=== PATIENT | male | born 1950 | race Caucasian/White ===

== ENCOUNTER → 2017-07-23 15:15 | Outpatient (CLI) | payer MEDICARE, OTHER, SELFPAY | PROVIDERS: Visit Provider Urology | DX: E29.1 Testicular hypofunction (principal); R97.20 Elevated prostate specific antigen [PSA] | CPT/HCPCS: 36415; 84153; 84403 ==

== ENCOUNTER → 2017-11-03 13:22 | Outpatient (CLI) | payer MEDICARE, OTHER, SELFPAY ==
[2017-11-03 14:04] LABS: Hematocrit 53.4 % (41-53)
== END ==
PROVIDERS: Visit Provider Urology
DX: R97.20 Elevated prostate specific antigen [PSA] (principal); E29.1 Testicular hypofunction
CPT/HCPCS: 36415; 84153; 84403; 85014

== ENCOUNTER → 2018-02-07 11:17 | Outpatient (CLI) | payer MEDICARE, OTHER, SELFPAY | PROVIDERS: Visit Provider Urology | DX: N40.0 Benign prostatic hyperplasia without lower urinary tract symptoms (principal); E29.1 Testicular hypofunction | CPT/HCPCS: 36415; 84153; 84403 ==

== ENCOUNTER 2018-02-27 06:45 | Day surgery (SDC) | payer MEDICARE, OTHER, SELFPAY ==
[2018-02-18 17:07] VITALS: BMI 25.9
[2018-02-27 07:06] VITALS: BMI 27.3
[2018-02-27 07:19] VITALS: BP 134/76; PULSE 83; RESP 15; TEMP 36.3; O2SAT 94
[2018-02-27] MEDS: LACTATED RINGERS 1,000 ML 42 ML IV (07:20)
--- NOTE | 2018-02-27 07:43 | PM.PREOP ---
Pre-operative Note Interval Note History & Physical reviewed/Exam performed by Physician: Yes Changes to H&P: No
--- NOTE | 2018-02-27 07:47 | P.OP_ITS ---
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 Conservative measures failed to alleviate his pain and wished to have reduction of the prominence at this time. Surgeon: Alba Ramires Click Yes if Unassisted: Yes Operative Notes Procedure in detail: The patient was brought to the operating and placed on the table in supine position after induction of general anesthesia the foot was prepped and draped the usual aseptic manner. After check of anesthesia the, an incision was made over the plantar aspect of the 4th proximal interphalangeal joint. The incision was deepened through subcutaneous tissues being careful to identify and retract all vital neurovascular structures. All bleeders and cauterized and ligated as necessary. Immediately noted was a tophus in the location of the nodule; it was firm, discrete, and white with chalkiness. There was some extension distally into the DIPJ. The flexor tendon appeared under this and was clean and clear, excepting with some tophus involvement at the more distal aspect at the DIPJ. Loading the foot/toe, the intermediate phalanx did not appear especially dropped plantarly. The area was irrigated with copious amounts of normal sterile saline. No necrotic tissue or abscesses were noted. Vessels were cauterized and ligated as necessary.4-0 Vicryl was used to repair a portion of the flexor distally and also used minorly subcutaneously for closure and 4-0 nylon for the skin. The area was dressed with a sterile lightly compressive dressing. Complications: none Condition: stable Disposition: PACU Plan for aftercare: Following a period of postoperative monitoring, the patient be discharged home on written and oral postoperative instructions including keeping the dressing dry and intact, avoiding significant ambulation on the foot , elevating the foot when seated home. DVT prevention techniques have been reviewed. For the 1st postoperative visit the dressing will be changed and possible suture removal.
--- NOTE | 2018-02-27 08:12 | SUR.OPER ---
Supine on padded OR bed, head on pillow, arms secured on padded arm boards at <90 degrees abduction, legs uncrossed, safety belt at thigh, tape over blanket over non operative lower leg, operative leg draped free.
[2018-02-27] MEDS: CEFAZOLIN 1 GM VIAL IV (08:22)
[2018-02-27] MEDS: BUPIVACAINE 0.5% (PF) VIAL 3 ML INJ (08:24)
[2018-02-27 08:46] VITALS: BP 105/33; PULSE 58; RESP 15; TEMP 36.9; O2SAT 96
[2018-02-27 08:51] VITALS: BP 112/54; PULSE 60; RESP 16; O2SAT 95
[2018-02-27 08:56] VITALS: BP 117/66; PULSE 58; RESP 16; O2SAT 95
[2018-02-27 09:18] VITALS: BP 126/70; PULSE 55; RESP 16; TEMP 36.2; O2SAT 99
--- NOTE | 2018-02-27 09:30 | SUR.PHASEII ---
ready for discharge waiting for ride.
[2018-02-27 10:23] VITALS: BP 121/66; PULSE 60; RESP 14; TEMP 36.6; O2SAT 100
--- NOTE | 2018-02-27 10:26 | SUR.PHASEII ---
Benedicto constantino, pt left in stable condition, d/c instructions completed by Mynor Roberts RN.
== END 2018-02-27 10:22 | disposition home or self-care (01) ==
PROVIDERS: Visit Provider Podiatrist
PROC: (CPT 26535; principal; 2018-02-27 07:45)
DX: M1A.9XX1 Chronic gout, unspecified, with tophus (tophi) (principal); E78.00 Pure hypercholesterolemia, unspecified
CPT/HCPCS: 28108; J0690; J1100; J2250; J2405; J2704; J3010

== ENCOUNTER 2018-04-09 14:36 | Emergency (ER) | payer MEDICARE, OTHER, SELFPAY ==
[2018-04-09 14:42] VITALS: BP 154/87; PULSE 73; RESP 15; TEMP 36.4; O2SAT 100; BMI 27.0
--- NOTE | 2018-04-09 14:51 | ED_ITS ---
HPI - Male Genitourinary <Margarita Angeles PA-C - Last Filed: 04/09/18 15:45> General Chief complaint: Urogenital-Male Stated complaint: urinary retention post op Time Seen by Provider: 04/09/18 14:46 Source: patient Mode of arrival: ambulatory Limitations: no limitations History of Present Illness HPI Narrative: This 67-year-old male comes to ED secondary to urinary retention. He states that he had a laser ablation of his prostate for BPH on 03/24. Initial catheter was placed then and removed 03/31, however he was unable to urinate so this was replaced. He talked with his interventional radiologist who did the procedure (in [place]), and was advised he could try removing the catheter this morning at home, however since then he was only able to produce a trickle of urine and feels like he is retaining urine again. He has been in touch with his physician in [place] who advised him to come to ED and get the catheter replaced. He does have a urologist in [place] but has not seen him at all regarding this procedure. He denies any other new symptoms today such as fever, nausea, vomiting, or abdominal pain. Related Data Home Medications Medication Instructions Recorded Confirmed oxycodone-acetaminophen [Percocet] 1 tab PO Q6H PRN 02/18/18 04/09/18 alfuzosin 10 mg PO BEDTIME 04/09/18 04/09/18 anastrozole 0.5 mg PO 4XW 04/09/18 04/09/18 hyoscyamine sulfate 0.125 mg SUBLINGUAL Q4H PRN 04/09/18 04/09/18 hypochlorous acid-sodium chlor 04/09/18 [Avenova] Allergies Allergy/AdvReac Type Severity Reaction Status Date / Time prednisolone [PREDNISOLONE] AdvReac Unknown Glaucoma Verified 04/09/18 14:42 Review of Systems <Margarita Angeles PA-C - Last Filed: 04/09/18 15:45> Review of Systems ROS Unobtainable: All systems reviewed & are unremarkable except as noted in HPI and below PFSH <Margarita Angeles PA-C - Last Filed: 04/09/18 15:45> Medical History Gout (Chronic) Hyperlipidemia (Chronic) Vascular insufficiency of extremity (Chronic) Surgical History History of toe surgery (Resolved 03/12/17) History of vascular surgery (Resolved) Social History Smoking Status: Never smoker Social History Smoking Status: Never smoker Comment: + ETOH Exam <Margarita Angeles PA-C - Last Filed: 04/09/18 15:45> Narrative Exam Narrative: GENERAL APPEARANCE: Patient sitting comfortably, in no distress. LUNGS: Clear to auscultation bilaterally. HEART: Rate and rhythm regular without murmur, normal S1 and S2, no S3 or S4. ABDOMEN: Soft, NT, ND, +BS x 4 quadrants EXTREMITIES: No edema Initial Vital Signs Initial Vital Signs: Vital Signs Temperature 97.6 F 04/09/18 14:42 Pulse Rate 73 04/09/18 14:42 Respiratory Rate 15 04/09/18 14:42 Blood Pressure 154/87 H 04/09/18 14:42 Pulse Oximetry 100 04/09/18 14:42 <Sri Santana DO - Last Filed: 04/10/18 08:36> Initial Vital Signs Initial Vital Signs: Vital Signs Temperature 97.6 F 04/09/18 14:42 Pulse Rate 73 04/09/18 14:42 Respiratory Rate 15 04/09/18 14:42 Blood Pressure 154/87 H 04/09/18 14:42 Pulse Oximetry 100 04/09/18 14:42 Course <Margarita Angeles PA-C - Last Filed: 04/09/18 15:45> Additional Information: Catheter replaced and quickly drained 400+cc. Patient is feeling well without other new c/o. He has PCP follow-up scheduled next week and will also be in touch with his IR specialist to determine whether further local/urology f/u needed. Orders Ordered: Discontinued Medications Sodium Chloride (Normal Saline 0.9%) 1,000 mls @ 1,000 mls/hr IV BOLUS ONE Stop: 04/09/18 15:53 Vital Signs - 8 hr 04/09/18 14:42 Temperature 97.6 F Pulse Rate 73 Respiratory Rate 15 Blood Pressure 154/87 H Pulse Oximetry 100 <Sri Santana DO - Last Filed: 04/10/18 08:36> Orders Ordered: Discontinued Medications Sodium Chloride (Normal Saline 0.9%) 1,000 mls @ 1,000 mls/hr IV BOLUS ONE Stop: 04/09/18 15:53 Vital Signs - 8 hr 04/09/18 14:42 Temperature 97.6 F Pulse Rate 73 Respiratory Rate 15 Blood Pressure 154/87 H Pulse Oximetry 100 Discharge Plan Departure Patient Disposition: Home Clinical Impression: Postprocedural urinary retention Discharge Date/Time: 04/09/18 16:04 Interventions: ED Discharge Assessment Last Done: 04/09/18 16:04 Instructions: How to Care for Your Srivastava Catheter -- Male, DI for Urinary Retention in Men Activity Restrictions/Additional Instructions: Please return if having problems with your catheter or new symptoms such as fever, vomiting, or urinary pain. Otherwise, please follow-up with your new PCP as you have planned next week and you can determine from there whether you need to see another local specialist such as Urology. Your interventional radiologist may just want you to do another trial of catheter removal in a week or so as your postoperative inflammation improves. Prescriptions: No Action oxycodone-acetaminophen [Percocet] 5-325 mg Tablet 1 tab PO Q6H PRN (Reason: Pain) RF: 0 anastrozole 1 mg tablet 0.5 mg PO 4XW RF: 0 hyoscyamine sulfate 0.125 mg tablet, sublingual 0.125 mg Sublingual Q4H PRN (Reason: Spasms) RF: 0 alfuzosin 10 mg tablet extended release 24 hr 10 mg PO BEDTIME RF: 0 Avenova 0.01 % spray,non-aerosol RF: 0 Referrals: Delores Ham [Other] Todd Duffy MD [Primary Care Provider] - Deniz Shah MD [Non-Staff] - <Sri Santana DO - Last Filed: 04/10/18 08:36> Cosign ED Attending Cosignature Attestation: I was immediately available in the department for consultation. Documentation has been reviewed. I agree with assessment and plan.
--- NOTE | 2018-04-09 15:00 | PC.NURSE ---
s\p focus laser ablation prostates, (bph), done in [facility], patiño inserted Mar , dc ,but reinserted the same day, patiño dc this morning at 7am, though he was ready, trickle urine since 7am, now feels like urine 400ml. denies fever,vomiting, denies coag, now with bladder preassure 5/10 at this time bladder scan on arrival 466ml.
[2018-04-09 15:53] VITALS: BP 142/68; PULSE 61; RESP 16; O2SAT 98
--- NOTE | 2018-04-09 16:03 | PC.NURSE ---
patiño education given to pt, converting to leg bag-large bag. pt familiar with the procedure already,
== END 2018-04-09 16:04 | disposition home or self-care (01) ==
PROVIDERS: Emergency Provider Internal Medicine; PCP Internal Medicine
DX: N99.89 Other postprocedural complications and disorders of genitourinary system (principal); R33.8 Other retention of urine
CPT/HCPCS: 51701; 99283

== ENCOUNTER → 2018-05-13 14:39 | Outpatient (CLI) | payer MEDICARE, OTHER, SELFPAY ==
[2018-05-13 16:31] LABS: Prostate Specific Antigen 2.99 ng/mL (0.10-4.00)
== END ==
PROVIDERS: PCP Internal Medicine; Visit Provider Urology
DX: E29.1 Testicular hypofunction (principal); N40.0 Benign prostatic hyperplasia without lower urinary tract symptoms
CPT/HCPCS: 36415; 84153; 84403

== ENCOUNTER → 2018-05-30 12:03 | Outpatient (CLI) | payer MEDICARE, OTHER, SELFPAY ==
[2018-05-30 14:09] LABS: Alanine Aminotransferase 27 IU/L (21-72); Albumin 4.4 g/dL (3.5-5.0); Albumin Globulin Ratio 1.6 (1.0-2.8); Alkaline Phosphatase 54 U/L (38-126); Aspartate Aminotransferase 27 IU/L (17-59); Bilirubin Total 0.5 mg/dL (0.2-1.3); Bilirubin Unconjugated 0.5 mg/dL (0.0-1.1); Globulin 2.8 g/dL (1.7-4.1); HEMOLYSIS < 15 (0-50); Total Protein 7.2 g/dL (6.3-8.2); Uric Acid 9.1 mg/dL (3.5-8.5)
== END ==
PROVIDERS: PCP Internal Medicine; Visit Provider Internal Medicine
DX: M10.9 Gout, unspecified (principal); Z79.899 Other long term (current) drug therapy
CPT/HCPCS: 36415; 80076; 84550

== ENCOUNTER → 2018-08-20 12:57 | Outpatient (CLI) | payer MEDICARE, OTHER, SELFPAY ==
[2018-08-20 14:28] LABS: Prostate Specific Antigen 2.44 ng/mL (0.10-4.00)
== END ==
PROVIDERS: Visit Provider Urology
DX: R97.20 Elevated prostate specific antigen [PSA] (principal); E29.1 Testicular hypofunction
CPT/HCPCS: 36415; 84153; 84403

== ENCOUNTER → 2018-09-03 12:12 | Outpatient (CLI) | payer MEDICARE, OTHER, SELFPAY ==
[2018-09-03 12:56] LABS: Hematocrit 48.1 % (41-53)
[2018-09-03 13:06] LABS: Uric Acid 7.5 mg/dL (3.5-8.5)
== END ==
PROVIDERS: Visit Provider Urology
DX: D75.1 Secondary polycythemia (principal); N21.0 Calculus in bladder
CPT/HCPCS: 36415; 84550; 85014

== ENCOUNTER → 2018-11-25 11:34 | Outpatient (CLI) | payer MEDICARE, OTHER, SELFPAY ==
[2018-11-25 12:28] LABS: Hematocrit 51.5 % (41-53)
[2018-11-26 15:08] LABS: Prostate Specific Antigen 5.36 ng/mL (0.10-4.00)
== END ==
PROVIDERS: Visit Provider Urology
DX: E29.1 Testicular hypofunction (principal); R97.20 Elevated prostate specific antigen [PSA]
CPT/HCPCS: 36415; 84153; 84403; 85014

== ENCOUNTER → 2019-01-14 12:45 | Outpatient (CLI) | payer MEDICARE, OTHER, SELFPAY ==
--- NOTE | 2019-01-14 | DI.US.S_ITS ---
PROCEDURE: US RENAL COMPLETE INDICATIONS: CALCULUS IN BLADDER TECHNIQUE: Real-time scanning was performed of the kidneys and bladder, with image documentation. COMPARISON: None. FINDINGS: Kidneys: Kidneys are normal in size. Right kidney measures 10.8 cm long; left kidney measures 12.3 cm long. Right renal cortical thickness is 1.3 cm; left renal cortical thickness is 1.4 cm. Renal cortical echotexture is normal. No hydronephrosis. A 2.5 x 1.7 x 1.3 cm cyst with thin internal septations is present within the midpole of the right kidney. A 6 mm cortical cyst is also present within the midpole of the right kidney. There is a 2.0 cm left pararenal cyst and 2 adjacent cortical cysts within the midpole of the left kidney which measure 3.0 x 2.3 x 1.8 cm. Bladder: Pre-void bladder volume is 530 mL. Post-void residual is 103 mL. Pre-void images demonstrate no intraluminal masses or stones. On pre-void images, bilateral ureteral jets are noted with color Doppler interrogation. (Of note, ureteral jets may not be detectable in up to 25% of cases due to insufficient differences in specific gravity between ureteral and bladder urine). A 10 mm diameter calculus is likely present within the dependent bladder. Miscellaneous: No free pelvic fluid. IMPRESSION: 1. No hydronephrosis or nephrolithiasis. Bilateral renal cysts as above. 2. Probable bladder calculus. 3. Moderate postvoid residual. Dictated by: April Salinas M.D. on 01/14/2019 at 15:06 Approved by: April Salinas M.D. on 01/14/2019 at 15:08
== END ==
PROVIDERS: Family Provider Internal Medicine; PCP Internal Medicine; Visit Provider Urology
DX: N21.0 Calculus in bladder (principal); N28.1 Cyst of kidney, acquired
CPT/HCPCS: 76770

== ENCOUNTER → 2019-02-19 16:30 | Outpatient (CLI) | payer MEDICARE, OTHER, SELFPAY | PROVIDERS: Family Provider Internal Medicine; PCP Internal Medicine; Visit Provider Urology | DX: I25.10 Atherosclerotic heart disease of native coronary artery without angina pectoris (principal) | CPT/HCPCS: 93005 ==

== ENCOUNTER → 2019-03-02 10:59 | Outpatient (CLI) | payer MEDICARE, OTHER, SELFPAY ==
[2019-03-02 11:57] LABS: Hematocrit 45.7 % (41-53)
== END ==
PROVIDERS: Family Provider Internal Medicine; PCP Internal Medicine; Visit Provider Urology
DX: E29.1 Testicular hypofunction (principal)
CPT/HCPCS: 36415; 84403; 85014

== ENCOUNTER → 2019-03-17 15:25 | Outpatient (CLI) | payer MEDICARE, OTHER, SELFPAY ==
[2019-03-17 15:47] LABS: Bacteria Urine None Seen
[2019-03-17 16:05] LABS: Appearance Urine UA CLEAR; Bilirubin Urine UA NEGATIVE (NEGATIVE); Color Urine UA YELLOW; Glucose Urine UA NEGATIVE (Negative); Ketones Urine UA NEGATIVE (NEGATIVE); Leukocyte Esterase Urine UA NEGATIVE (NEGATIVE); Nitrite Urine UA NEGATIVE (Negative); Occult Blood Urine UA TRACE-LYSED (Negative); Protein Urine UA NEGATIVE (Negative); Urobilinogen Urine UA 0.2 E.U./dL (0.2); pH Urine UA 6.5 (4.5-8.0)
[2019-03-17 16:19] LABS: Culture Indicated Urine Cult Not Indicated; RBC Urine 0-1/HPF (0-5/HPF); WBC Urine 0-1/HPF (0-5/HPF)
== END ==
PROVIDERS: Family Provider Internal Medicine; PCP Internal Medicine; Referring Provider Urology; Visit Provider Urology
DX: R30.0 Dysuria (principal)
CPT/HCPCS: 81001

== ENCOUNTER → 2019-07-27 14:29 | Outpatient (CLI) | payer MEDICARE, OTHER, SELFPAY ==
[2019-07-27 15:30] LABS: Cholesterol 229 mg/dL (140-199); HDL Cholesterol 46 mg/dL (40-60); LDL Cholesterol Calculated 150 mg/dL (<100); Triglycerides 166 mg/dL (35-150); Uric Acid 8.2 mg/dL (3.5-8.5)
== END ==
PROVIDERS: Family Provider Internal Medicine; PCP Internal Medicine; Referring Provider Internal Medicine; Visit Provider Internal Medicine
DX: E78.5 Hyperlipidemia, unspecified (principal); M10.9 Gout, unspecified
CPT/HCPCS: 36415; 80061; 84550

== ENCOUNTER → 2019-07-29 09:13 | Outpatient (CLI) | payer MEDICARE, OTHER, SELFPAY ==
[2019-07-29 10:35] LABS: Hematocrit 40.9 % (41-53); Hemoglobin 14.2 g/dL (13.5-17.5)
[2019-07-29 11:00] LABS: Alanine Aminotransferase 25 IU/L (<50); Albumin 4.4 g/dL (3.5-5.0); Albumin Globulin Ratio 1.7 (1.0-2.8); Alkaline Phosphatase 55 U/L (38-126); Aspartate Aminotransferase 35 IU/L (17-59); BUN Creatinine Ratio 21.4 (6-22); Bilirubin Total 0.4 mg/dL (0.2-1.3); Blood Urea Nitrogen 31 mg/dL (9-20); Calcium 9.4 mg/dL (8.4-10.2); Carbon Dioxide 27 mmol/L (22-32); Chloride 103 mmol/L (98-107); Estimated Glomerular Filt Rate 48.1 mL/min (>60); Globulin 2.6 g/dL (1.7-4.1); Glucose 88 mg/dL (80-110); HEMOLYSIS < 15 (0-50); Potassium 4.5 mmol/L (3.4-5.1); Sodium 139 mmol/L (137-145)
[2019-07-29 11:29] LABS: Testosterone 420 ng/dL (71.8-623)
[2019-07-30 07:09] LABS: PSA Free % 17.3 % (.); PSA, Total 2.2 ng/mL (0.0-4.0)
== END ==
PROVIDERS: Family Provider Internal Medicine; PCP Internal Medicine; Referring Provider Urology; Visit Provider Urology
DX: E29.1 Testicular hypofunction (principal)
CPT/HCPCS: 36415; 80053; 84153; 84154; 84403; 85014; 85018

== ENCOUNTER → 2019-08-03 09:18 | Outpatient (CLI) | payer MEDICARE, OTHER, SELFPAY ==
--- NOTE | 2019-08-03 | DI.US.S_ITS ---
PROCEDURE: US RENAL COMPLETE INDICATIONS: ELEVATED KIDNEY FUNCTION TECHNIQUE: Real-time scanning was performed of the kidneys and bladder, with image documentation. COMPARISON: [facility], , RENAL COMPLETE, 01/14/2019, 13:22. FINDINGS: Kidneys: Kidneys are normal in size. Right kidney measures 10.0 cm long; left kidney measures 11.1 cm long. Right renal cortical thickness is 1.6 cm; left renal cortical thickness is 1.6 cm. Renal cortical echotexture is normal. No hydronephrosis or nephrolithiasis. No suspicious solid mass lesions. Simple appearing bilateral renal cysts measuring up to 2.2 cm on the right and up to 1.9 cm on the left. Bladder: Pre-void bladder volume is 406 mL. Post-void residual is zero mL. Pre-void images demonstrate no intraluminal masses or stones. On pre-void images, both of the ureteral jets are noted with color Doppler interrogation. (Of note, ureteral jets may not be detectable in up to 25% of cases due to insufficient differences in specific gravity between ureteral and bladder urine). Miscellaneous: No free pelvic fluid. IMPRESSION: Bilateral simple appearing renal cysts. No hydronephrosis Dictated by: Jac Alexis M.D. on 08/03/2019 at 10:37 Approved by: Jac Alexis M.D. on 08/03/2019 at 10:44
== END ==
PROVIDERS: Family Provider Internal Medicine; PCP Internal Medicine; Referring Provider Urology; Visit Provider Urology
DX: R39.9 Unspecified symptoms and signs involving the genitourinary system (principal); N28.1 Cyst of kidney, acquired
CPT/HCPCS: 76770

== ENCOUNTER → 2019-08-24 10:15 | Outpatient (CLI) | payer MEDICARE, OTHER, SELFPAY ==
[2019-08-25 08:11] LABS: COVID19 Sendout Not Detected (Not Detect)
== END ==
PROVIDERS: Family Provider Internal Medicine; PCP Internal Medicine; Visit Provider Physician Assistant
DX: Z01.812 Encounter for preprocedural laboratory examination (principal)
CPT/HCPCS: 87635

== ENCOUNTER 2019-08-27 13:56 | Day surgery (SDC) | payer MEDICARE, OTHER, SELFPAY ==
[2019-08-20 11:53] VITALS: BMI 26.1
[2019-08-27] VITALS (8 sets, daily range): BP systolic 105–155; BP diastolic 51–80; PULSE 48–66; RESP 8–18; TEMP 36.2–36.6; O2SAT 92–100; BMI 26.1
[2019-08-27] MEDS: LACTATED RINGERS 1,000 ML 100 ML IV (14:19)
--- NOTE | 2019-08-27 17:28 | PM.PREOP ---
Pre-operative Note COVID-19 COVID-19 status: Negative Result date/Date tested (Pos, Neg/Pending): 08/27/19 Interval Note History & Physical reviewed/Exam performed by Physician: Yes Changes to H&P: No
--- NOTE | 2019-08-27 17:29 | PM.OP.1 ---
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 Post-op diagnosis: same Procedure & Clinicians Procedure: Right fourth toe distal interphalangeal joint revision arthroplasty, exostectomy intermediate phalanx, soft tissue mass Same procedure as scheduled: Yes Indications: Painful recurrent nodule to the right fourth toe. Surgeon: Alba Ramires Click Yes if Unassisted: Yes Anesthesia Type: General Operative Notes Closure Type: primary Specimen(s): other (1) Crystal analysis gouty tophus joint of right fourth toe 2) Tissue from flexor tendon area of right fourth toe sent for crystal analysis (switched to culture per phone discussion with lab)) Estimated Blood Loss (mL): 10 Blood products transfused: none Procedure in detail: Patient was brought to the operating room and placed on the operating table in the supine position. After induction of general anesthesia the right foot was prepped and draped in the usual aseptic manner. After the tourniquet was inflated and after check of anesthesia to the foot and incision was made on the plantar 4th toe in the area of the proximal and distal interphalangeal joint where the nodule was felt on the more lateral aspect. The incision was deepened through subcutaneous tissues being careful to identify and retract all vital neural and vascular structures. All bleeders were cauterized and ligated as necessary. Heading into the more lateral aspect I was able to note up into the joint space a cluster of crystal component suggestive of gouty tophus. This was mobilized and as much as possible removed and sent for crystal analysis. There was no purulence and no areas of necrosis. There was what looked to be an investment also in the flexor tendon somewhat of some gouty tophus. I was able to just take a little bit of that but the remainder was intact and this was sent for analysis as well. I did note that there was a small component of the intermediate phalanx when I allowed the toe to be straight in the sagittal plane that may be pressing plantarly although it is not nearly the amount of component that I noticed that the more nodule felt from the small cluster of crystals that I saw on the other side. So I decided to rasp down a little of the intermediate phalanx from the plantar aspect so as to allow for less prominence. The area was irrigated with copious amounts of normal sterile saline and it was noted that there was less prominence plantarly from each of these locations. The tourniquet was deflated, prompt hyperemic response was seen to the foot. Closure was performed using 4 0 Vicryl and nylon. He was dressed in a sterile lightly compressive dressing and placed in his postoperative shoe and transferred the PACU with vital signs stable and vascular status intact. Complications: none Post-operative Condition: stable Disposition: PACU Plan for aftercare: Following a period of postoperative monitoring, the patient will be discharged to home on written and oral postoperative instructions including keeping the dressing dry and intact, avoiding significant ambulation to the foot. Elevating the foot when seated home, DVT prevention techniques have been reviewed. We will see him back for analysis of the crystals as well as tissue and once the skin appears to be coapted will remove the plantar sutures.
[2019-08-27] MEDS: CEFAZOLIN 1 GM/50 ML FROZ.PIGGY IV (17:40)
[2019-08-27] MEDS: BUPIVACAINE 0.5% (PF) VIAL 30 ML INJ (18:01)
--- NOTE | 2019-08-27 18:08 | SUR.OPER ---
Supine on padded OR bed, head on pillow, arms secured on padded arm boards at <90 degrees abduction, legs uncrossed, nonoperative lower leg secured with tape to operating table, safety belt at abdomen.
[2019-08-27 18:49] LABS: Crystals Body Fluid - IN-HOUSE Monosodium Urate MSU
--- NOTE | 2019-08-27 18:50 | SUR.PHASEI ---
PAtient A\O x 4. Reports sensation to right foot. Cap refill < 2 seconds to right foot. Denies pain and nausea.
--- NOTE | 2019-08-27 19:49 | SUR.PHASEII ---
Patient denies pain, DC instructions reviewed.
== END 2019-08-27 19:50 | disposition home or self-care (01) ==
PROVIDERS: Family Provider Internal Medicine; PCP Internal Medicine; Referring Provider Podiatrist; Visit Provider Podiatrist
PROC: (CPT 26535; principal; 2019-08-27 15:30)
DX: M10.9 Gout, unspecified (principal); M20.41 Other hammer toe(s) (acquired), right foot; E78.00 Pure hypercholesterolemia, unspecified
CPT/HCPCS: 28124; 87070; 87075; 87205; 89060; J1100; J2250; J2405; J2704; J3010

== ENCOUNTER → 2019-09-28 09:41 | Outpatient (CLI) | payer MEDICARE, OTHER, SELFPAY ==
[2019-09-28 12:01] LABS: BUN Creatinine Ratio 17.9 (6-22); Blood Urea Nitrogen 24 mg/dL (9-20); Calcium 9.2 mg/dL (8.4-10.2); Carbon Dioxide 29 mmol/L (22-32); Chloride 101 mmol/L (98-107); Cholesterol 190 mg/dL (140-199); Estimated Glomerular Filt Rate 52.7 mL/min (>60); Glucose 80 mg/dL (80-110); HDL Cholesterol 38 mg/dL (40-60); HEMOLYSIS < 15 (0-50); LDL Cholesterol Calculated 120 mg/dL (<100); Potassium 4.6 mmol/L (3.4-5.1); Sodium 136 mmol/L (137-145); Triglycerides 162 mg/dL (35-150); Uric Acid 4.8 mg/dL (3.5-8.5)
[2019-09-28 12:17] LABS: Progesterone, Total 0.76 ng/mL
[2019-09-28 12:33] LABS: Estradiol, Total 41.9 pg/mL; Prostate Specific Antigen 4.41 ng/mL (0.10-4.00)
[2019-09-28 12:37] LABS: Ferritin 11 ng/mL (18-464); Testosterone 827 ng/dL (71.8-623)
== END ==
PROVIDERS: Family Provider Internal Medicine; PCP Internal Medicine; Referring Provider Internal Medicine; Visit Provider Internal Medicine
DX: E78.5 Hyperlipidemia, unspecified (principal); M10.9 Gout, unspecified; E29.1 Testicular hypofunction; M85.80 Other specified disorders of bone density and structure, unspecified site; Z12.5 Encounter for screening for malignant neoplasm of prostate; E55.9 Vitamin D deficiency, unspecified; D75.1 Secondary polycythemia; R97.20 Elevated prostate specific antigen [PSA]
CPT/HCPCS: 36415; 80048; 80061; 82670; 82728; 84144; 84153; 84403; 84550; G0103

== ENCOUNTER → 2019-11-05 13:13 | Outpatient (CLI) | payer MEDICARE, OTHER, SELFPAY ==
[2019-11-05 14:11] LABS: BUN Creatinine Ratio 17.2 (6-22); Blood Urea Nitrogen 22 mg/dL (9-20); Calcium 8.9 mg/dL (8.4-10.2); Carbon Dioxide 30 mmol/L (22-32); Chloride 100 mmol/L (98-107); Estimated Glomerular Filt Rate 55.6 mL/min (>60); Glucose 92 mg/dL (80-110); HEMOLYSIS < 15 (0-50); Potassium 4.6 mmol/L (3.4-5.1); Sodium 139 mmol/L (137-145)
== END ==
PROVIDERS: Family Provider Internal Medicine; PCP Internal Medicine; Referring Provider Internal Medicine; Visit Provider Internal Medicine
DX: R94.4 Abnormal results of kidney function studies (principal)
CPT/HCPCS: 36415; 80048

== ENCOUNTER → 2019-12-01 11:22 | Outpatient (CLI) | payer MEDICARE, OTHER, SELFPAY ==
[2019-12-01 12:21] LABS: Add Manual Diff / Slide Review NO; Basophils Absolute Auto 0 /uL (0-100); Basophils Percent Auto 0.4 % (0-2); Eosinophils Absolute Auto 100 /uL (0-450); Eosinophils Percent Auto 1.4 % (2-4); Hematocrit 46.4 % (41-53); Hemoglobin 15.2 g/dL (13.5-17.5); Lymphocytes Absolute Auto 1600 /uL (1100-4500); Lymphocytes Percent Auto 27.6 % (25-40); Mean Corpuscular HGB Conc 32.7 % (30-36); Mean Corpuscular Volume 82.5 fL (80-100); Monocytes Absolute Auto 500 /uL (0-900); Monocytes Percent Auto 8.5 % (3-14); Neutrophils Absolute Auto 3700 /uL (1500-7000); Neutrophils Percent Auto 62.1 % (50-75); Platelet Count 188 X10^3/uL (150-400); Red Blood Cell Count 5.63 X10^6/uL (4.5-5.9); Red Cell Distribution Width 16.6 % (11.6-14.8); White Blood Cell Count 5.9 X10^3/uL (4.5-11.0)
[2019-12-01 12:43] LABS: Alanine Aminotransferase 38 IU/L (<50); Albumin 4.6 g/dL (3.5-5.0); Albumin Globulin Ratio 1.6 (1.0-2.8); Alkaline Phosphatase 65 U/L (38-126); Aspartate Aminotransferase 44 IU/L (17-59); BUN Creatinine Ratio 18.3 (6-22); Bilirubin Total 0.7 mg/dL (0.2-1.3); Blood Urea Nitrogen 23 mg/dL (9-20); Calcium 9.5 mg/dL (8.4-10.2); Carbon Dioxide 32 mmol/L (22-32); Chloride 101 mmol/L (98-107); Cholesterol 207 mg/dL (140-199); Estimated Glomerular Filt Rate 56.6 mL/min (>60); Globulin 2.9 g/dL (1.7-4.1); Glucose 85 mg/dL (80-110); HDL Cholesterol 44 mg/dL (40-60); HEMOLYSIS < 15 (0-50); LDL Cholesterol Calculated 126 mg/dL (<100); Potassium 4.5 mmol/L (3.4-5.1); Sodium 138 mmol/L (137-145); Total Protein 7.5 g/dL (6.3-8.2); Triglycerides 183 mg/dL (35-150)
[2019-12-01 13:12] LABS: Prostate Specific Antigen 2.68 ng/mL (0.10-4.00)
[2019-12-01 13:15] LABS: Testosterone 482 ng/dL (71.8-623)
== END ==
PROVIDERS: Family Provider Internal Medicine; PCP Internal Medicine; Referring Provider Urology; Visit Provider Urology
DX: E29.1 Testicular hypofunction (principal); R39.9 Unspecified symptoms and signs involving the genitourinary system; Z12.5 Encounter for screening for malignant neoplasm of prostate
CPT/HCPCS: 36415; 80053; 80061; 84153; 84403; 85025

== ENCOUNTER → 2020-03-01 13:05 | Outpatient (CLI) | payer MEDICARE, OTHER, SELFPAY ==
[2020-03-01 14:37] LABS: Hematocrit 50.8 % (41-53); Hemoglobin 16.6 g/dL (13.5-17.5)
[2020-03-01 15:02] LABS: Alanine Aminotransferase 23 IU/L (<50); Albumin 4.7 g/dL (3.5-5.0); Albumin Globulin Ratio 1.4 (1.0-2.8); Alkaline Phosphatase 65 U/L (38-126); Aspartate Aminotransferase 29 IU/L (17-59); BUN Creatinine Ratio 16.5 (6-22); Bilirubin Total 0.7 mg/dL (0.2-1.3); Blood Urea Nitrogen 22 mg/dL (9-20); Calcium 9.2 mg/dL (8.4-10.2); Carbon Dioxide 31 mmol/L (22-32); Chloride 101 mmol/L (98-107); Cholesterol 225 mg/dL (140-199); Estimated Glomerular Filt Rate 53.2 mL/min (>60); Globulin 3.3 g/dL (1.7-4.1); Glucose 95 mg/dL (80-110); HDL Cholesterol 44 mg/dL (40-60); HEMOLYSIS < 15 (0-50); LDL Cholesterol Calculated 156 mg/dL (<100); Potassium 4.6 mmol/L (3.4-5.1); Sodium 137 mmol/L (137-145); Triglycerides 125 mg/dL (35-150)
[2020-03-05 10:07] LABS: Percent Free Testosterone 4.84 % (1.50-4.20); Testosterone Free 37.07 ng/dL (5.00-21.00)
== END ==
PROVIDERS: Family Provider Internal Medicine; PCP Internal Medicine; Referring Provider Urology; Visit Provider Urology
DX: E29.1 Testicular hypofunction (principal)
CPT/HCPCS: 36415; 80053; 80061; 84402; 84403; 85014; 85018

== ENCOUNTER → 2020-03-02 13:38 | Outpatient (CLI) | payer MEDICARE, OTHER, SELFPAY ==
[2020-03-07 09:09] LABS: Percent Free Testosterone 3.03 % (1.50-4.20); Testosterone Free 24.39 ng/dL (5.00-21.00)
== END ==
PROVIDERS: Family Provider Internal Medicine; PCP Internal Medicine; Referring Provider Urology; Visit Provider Urology
DX: E29.1 Testicular hypofunction (principal)
CPT/HCPCS: 36415; 84402; 84403

== ENCOUNTER → 2020-03-09 14:22 | Outpatient (CLI) | payer MEDICARE, OTHER, SELFPAY ==
[2020-03-12 12:39] LABS: Percent Free Testosterone 3.73 % (1.50-4.20); Testosterone Free 25.35 ng/dL (5.00-21.00); Testosterone Total 679.6 ng/dL (264.0-916.0)
== END ==
PROVIDERS: Family Provider Internal Medicine; PCP Internal Medicine; Referring Provider Internal Medicine; Visit Provider Internal Medicine
DX: E29.1 Testicular hypofunction (principal)
CPT/HCPCS: 36415; 84402; 84403

== ENCOUNTER → 2020-03-09 14:57 | Outpatient (CLI) | payer MEDICARE, OTHER, SELFPAY ==
[2020-03-09] MEDS: COVID-19 VACC #1, MRNA(MOD) 100 MCG/0.5 ML VIAL IM (15:02)
== END ==
PROVIDERS: Family Provider Internal Medicine; PCP Internal Medicine; Visit Provider Internal Medicine
DX: Z23 Encounter for immunization (principal)
CPT/HCPCS: 0011A; 91301

== ENCOUNTER → 2020-04-06 14:53 | Outpatient (CLI) | payer MEDICARE, OTHER, SELFPAY ==
[2020-04-06] MEDS: COVID-19 VACC #2, MRNA(MOD) 100 MCG/0.5 ML VIAL IM (15:00)
== END ==
PROVIDERS: Family Provider Internal Medicine; PCP Internal Medicine; Visit Provider Internal Medicine
DX: Z23 Encounter for immunization (principal)
CPT/HCPCS: 0012A; 91301

== ENCOUNTER → 2020-04-06 15:20 | Outpatient (CLI) | payer MEDICARE, OTHER, SELFPAY ==
[2020-04-06 17:07] LABS: Hematocrit 48.3 % (41-53); Hemoglobin 15.9 g/dL (13.5-17.5)
[2020-04-11 07:40] LABS: Percent Free Testosterone 3.92 % (1.50-4.20); Testosterone Free 9.39 ng/dL (5.00-21.00); Testosterone Total 239.5 ng/dL (264.0-916.0)
== END ==
PROVIDERS: Family Provider Internal Medicine; PCP Internal Medicine; Referring Provider Urology; Visit Provider Urology
DX: E29.1 Testicular hypofunction (principal)
CPT/HCPCS: 36415; 84402; 84403; 85014; 85018

== ENCOUNTER → 2020-05-18 09:18 | Outpatient (CLI) | payer MEDICARE, OTHER, SELFPAY ==
--- NOTE | 2020-05-18 | DI.MRI.S_ITS ---
PROCEDURE: MR SHOULDER RT WO/W CON INDICATIONS: other chronic pain TECHNIQUE: Noncontrast oblique coronal T1 spin echo and T2 fast spin echo with fat saturation, oblique sagittal T1 spin echo and T2 fast spin echo with fat saturation, axial T1 spin echo and T2 fast spin echo with fat saturation through the shoulder. Post-contrast oblique coronal, oblique sagittal, and axial T1 spin echo with fat saturation through the shoulder. COMPARISON: None. FINDINGS: Image quality: Excellent. Rotator cuff: Tendinosis and low-grade articular and bursal surface partial thickness tear involving distal supraspinatus at its insertion on humeral head is seen extending to musculotendinous junction. Distal infraspinatus tendinosis is seen. Distal subscapularis tendinosis is also noted. No full-thickness rotator cuff tendon rupture. Sagittal images demonstrate no significant muscle atrophy. Bones and bursae: No suspicious bone marrow enhancement. No bone marrow contusions or fractures. Moderate acromioclavicular joint osteoarthritic changes are seen with joint space narrowing and inferior marginal osteophyte formation depressing the musculotendinous junction of supraspinatus. Mild to moderate glenohumeral joint osteoarthritic changes also seen.. The acromion demonstrates conventional anatomy, without an os acromiale. No pathologic subacromial-subdeltoid or subcoracoid bursal fluid is present. Capsule and soft tissues: No suspicious soft tissue enhancement. Subtle signal abnormality and contour irregularity involving superior anterior labrum at 1 to 2 o'clock position suggestive of superior anterior labral tear. The long head of the biceps tendon demonstrates normal location and morphology. The rotator interval appears normal, without fibrosis. The coracohumeral ligament is normal in thickness. IMPRESSION: 1. Tendinosis and low-grade articular and bursal surface partial thickness tear involving distal supraspinatus extending to musculotendinous junction. Distal infraspinatus and subscapularis tendinosis. No full-thickness rotator cuff tendon rupture. No area of abnormal enhancement. 2. Moderate acromioclavicular joint osteoarthritis and mild to moderate glenohumeral joint osteoarthritis. No fracture or dislocation. No marrow edema. No area of abnormal intraosseous enhancement. 3. Suggestion of focal superior anterior labral tear at 1 to 2 o'clock position. Dictated by: Thang Hull M.D. on 05/18/2020 at 12:53 Approved by: Thang Hull M.D. on 05/18/2020 at 13:01
== END ==
PROVIDERS: Family Provider Internal Medicine; PCP Internal Medicine; Referring Provider Internal Medicine; Visit Provider Internal Medicine
DX: Z00.00 Encounter for general adult medical examination without abnormal findings (principal); G89.29 Other chronic pain; S46.011A Strain of muscle(s) and tendon(s) of the rotator cuff of right shoulder, initial encounter; M19.011 Primary osteoarthritis, right shoulder
CPT/HCPCS: 73223; A9579

== ENCOUNTER → 2020-07-25 13:50 | Outpatient (CLI) | payer MEDICARE, OTHER, SELFPAY ==
[2020-07-25 14:15] LABS: Hematocrit 52.2 % (41-53); Hemoglobin 17.5 g/dL (13.5-17.5); Mean Corpuscular HGB Conc 33.5 % (30-36); Mean Corpuscular Hemoglobin 29.6 PG (26-34); Mean Corpuscular Volume 88.3 fL (80-100); Platelet Count 185 X10^3/uL (150-400); Red Blood Cell Count 5.91 X10^6/uL (4.5-5.9); Red Cell Distribution Width 15.2 % (11.6-14.8); White Blood Cell Count 8.1 X10^3/uL (4.5-11.0)
[2020-07-25 15:14] LABS: Prostate Specific Antigen 3.22 ng/mL (0.10-4.00)
[2020-07-31 16:48] LABS: Testosterone % Fr + Wkly bound 25.1 % (9.0-46.0); Testosterone, Total 557.8 ng/dL (264.0-916.0)
== END ==
PROVIDERS: Family Provider Internal Medicine; PCP Internal Medicine; Referring Provider Urology; Visit Provider Urology
DX: E29.1 Testicular hypofunction (principal); N40.0 Benign prostatic hyperplasia without lower urinary tract symptoms
CPT/HCPCS: 36415; 84153; 84403; 85027

== ENCOUNTER → 2020-08-28 16:08 | Outpatient (CLI) | payer MEDICARE, OTHER, SELFPAY ==
[2020-08-28 17:32] LABS: Hematocrit 51.9 % (41-53); Hemoglobin 17.4 g/dL (13.5-17.5); Mean Corpuscular HGB Conc 33.4 % (30-36); Mean Corpuscular Hemoglobin 29.4 PG (26-34); Platelet Count 199 X10^3/uL (150-400); Red Cell Distribution Width 16.1 % (11.6-14.8); White Blood Cell Count 8.4 X10^3/uL (4.5-11.0)
[2020-08-28 23:22] LABS: Prostate Specific Antigen 2.72 ng/mL (0.10-4.00)
[2020-09-04 10:30] LABS: Testosterone % Fr + Wkly bound 42.3 % (9.0-46.0); Testosterone Fr+Wkly bound 152.8 ng/dL (40.0-250.0); Testosterone, Total 361.3 ng/dL (264.0-916.0)
== END ==
PROVIDERS: Family Provider Internal Medicine; PCP Internal Medicine; Referring Provider Urology; Visit Provider Urology
DX: E29.1 Testicular hypofunction (principal); N40.0 Benign prostatic hyperplasia without lower urinary tract symptoms
CPT/HCPCS: 36415; 84153; 84403; 85027

== ENCOUNTER → 2020-10-04 11:55 | Outpatient (CLI) | payer MEDICARE, OTHER, SELFPAY ==
[2020-10-04 12:28] LABS: 585 Gram Check PASS; Dizziness NO; Postdiastolic BP 83; Postsystolic BP 142; Prediastolic 85; Presystolic 144; Pulse 63; Site of phlebotomy RAC; Swelling NO; Temperature 97.5; Therapeutic Phleb Comment NO COMMENT; Zero Check Sebra Scale PASS
== END ==
PROVIDERS: Family Provider Internal Medicine; PCP Internal Medicine; Referring Provider Internal Medicine; Visit Provider Internal Medicine
DX: D75.1 Secondary polycythemia (principal)
CPT/HCPCS: 99195

== ENCOUNTER → 2020-11-17 16:10 | Outpatient (CLI) | payer MEDICARE, OTHER, SELFPAY ==
--- NOTE | 2020-11-17 | DI.MRI.S_ITS ---
PROCEDURE: MR KNEE RT WO CON INDICATIONS: Patellar tendinitis, right knee TECHNIQUE: Noncontrast sagittal PD fast spin echo and T2 fast spin echo with fat saturation, sagittal 3-D FLASH with fat saturation; coronal T1 spin echo and PD fast spin echo with fat saturation, and axial PD fast spin echo with fat saturation through the knee. COMPARISON: [facility], MR, KNEE WITHOUT CONTRAST, 07/24/2015, 17:08. FINDINGS: Image quality: Excellent. Menisci: The medial and lateral menisci demonstrate normal morphology and internal signal. The meniscal root ligaments appear intact. Cruciate ligaments: Mild degenerative changes and low-grade intrasubstance partial-thickness tear involving distal anterior cruciate ligament at its proximal tibial insertion is seen. Patellar tendon is intact. Medial structures: Low-grade MCL sprain is noted. The posterior oblique ligament, semimembranosus tendon insertions, oblique popliteal ligament, and meniscocapsular junction appear intact. Visualized portions of the pes anserinus tendons appear normal. No abnormal bursal fluid. Lateral structures: The lateral collateral ligament, long and short heads of the biceps femoris tendon appear intact. The popliteus tendon appears normal; the popliteofibular ligament appears intact. The posterosuperior and anteroinferior popliteomeniscal fascicles appear intact. The arcuate and fabellofibular ligaments appear intact, on either side of the lateral inferior geniculate artery. Iliotibial band appears normal. Anterior structures: The quadriceps is intact. Thickened mid to distal patellar tendon at its anterior tibial insertion is seen suggestive of tendinosis/low-grade intrasubstance partial-thickness tear. Patellar alignment is normal. No femoral trochlear dysplasia or ventral trochlear prominence. No edema in the infrapatellar fat pad. Bones and cartilage: Mild tricompartmental osteoarthritis and chondromalacia is noted. There is fragmented appearance of anterior tibial tuberosity at patellar tendon insertion without marrow edema suggestive of old healed [place]-Schlatter disease. Joint space: There is moderate joint effusion, no gross intra-articular loose body. No Ríos's cyst. Normal appearing synovial plicae are incidentally noted. IMPRESSION: 1. No evidence of focal meniscal tear. 2. Myxoid degenerative changes and very low-grade intrasubstance partial-thickness tear involving distal anterior cruciate ligament. No full-thickness ACL rupture. PCL is intact. 3. Very low-grade MCL sprain. 4. Suggestion of old healed [place]-Schlatter disease involving anterior tibial tuberosity with associated distal patellar tendinosis and low-grade partial-thickness tear. Distal quadriceps tendon is intact. Mild tricompartmental osteoarthritis and low-grade chondromalacia. 5. Moderate joint effusion, no gross intra-articular loose body. Soft tissue swelling and edema along anterior aspect of lower patella and patella tendon. Dictated by: Thang Hull M.D. on 11/20/2020 at 9:07 Approved by: Thang Hull M.D. on 11/20/2020 at 9:21
== END ==
PROVIDERS: Family Provider Internal Medicine; PCP Internal Medicine; Referring Provider Orthopaedic Surgery; Visit Provider Orthopaedic Surgery
DX: M76.51 Patellar tendinitis, right knee (principal); S76.111A Strain of right quadriceps muscle, fascia and tendon, initial encounter; M17.11 Unilateral primary osteoarthritis, right knee; M94.261 Chondromalacia, right knee; M25.461 Effusion, right knee; M79.89 Other specified soft tissue disorders
CPT/HCPCS: 73721

== ENCOUNTER → 2021-11-07 08:36 | Outpatient (CLI) | payer MEDICARE, OTHER, SELFPAY ==
[2021-11-07 09:43] LABS: Add Manual Diff / Slide Review NO; Basophils Absolute Auto 0 /uL (0-100); Basophils Percent Auto 0.3 % (0-2); Eosinophils Absolute Auto 100 /uL (0-450); Eosinophils Percent Auto 1.7 % (2-4); Hematocrit 44.2 % (41-53); Hemoglobin 14.5 g/dL (13.5-17.5); Lymphocytes Absolute Auto 2000 /uL (1100-4500); Mean Corpuscular HGB Conc 32.8 % (30-36); Mean Corpuscular Hemoglobin 25.6 PG (26-34); Monocytes Absolute Auto 500 /uL (0-900); Monocytes Percent Auto 8.5 % (3-14); Neutrophils Absolute Auto 3700 /uL (1500-7000); Neutrophils Percent Auto 58.5 % (50-75); Platelet Count 187 X10^3/uL (150-400); Red Blood Cell Count 5.66 X10^6/uL (4.5-5.9); Red Cell Distribution Width 19.8 % (11.6-14.8); White Blood Cell Count 6.4 X10^3/uL (4.5-11.0)
[2021-11-07 10:16] LABS: Alanine Aminotransferase 19 IU/L (<50); Albumin 4.2 g/dL (3.5-5.0); Albumin Globulin Ratio 1.4 (1.0-2.8); Alkaline Phosphatase 52 U/L (38-126); Aspartate Aminotransferase 26 IU/L (17-59); BUN Creatinine Ratio 16.3 (6-22); Bilirubin Total 0.7 mg/dL (0.2-1.3); Blood Urea Nitrogen 21 mg/dL (9-20); Calcium 8.8 mg/dL (8.4-10.2); Carbon Dioxide 27 mmol/L (22-32); Chloride 102 mmol/L (98-107); Estimated Glomerular Filt Rate 59 mL/min (>60); Globulin 2.9 g/dL (1.7-4.1); Glucose 98 mg/dL (80-110); HEMOLYSIS < 15 (0-50); Potassium 4.6 mmol/L (3.4-5.1); Sodium 140 mmol/L (137-145); Total Protein 7.1 g/dL (6.3-8.2)
[2021-11-07 10:30] LABS: T4 Total Thyroxine 4.89 ug/dL (5.5-11.0)
[2021-11-07 10:43] LABS: Thyroid Stimulating Hormone 2.31 uIU/mL (0.47-4.68)
[2021-11-07 17:58] LABS: Free T4, Direct Thyroxine 0.71 ng/dL (0.78-2.19)
== END ==
PROVIDERS: Family Provider Internal Medicine; PCP Internal Medicine; Referring Provider Internal Medicine Gastroenterology; Visit Provider Internal Medicine Gastroenterology
DX: K59.00 Constipation, unspecified (principal); K62.5 Hemorrhage of anus and rectum
CPT/HCPCS: 36415; 80053; 84436; 84439; 84443; 85025

== ENCOUNTER → 2021-11-30 11:10 | Outpatient (CLI) | payer MEDICARE, OTHER, SELFPAY ==
--- NOTE | 2021-11-30 11:15 | DI.US.S_ITS ---
PROCEDURE: US THYROID INDICATIONS: RIGHT NECK TENDERNESS TECHNIQUE: Real-time scanning was performed of the thyroid gland, with image documentation. COMPARISON: None. FINDINGS: Right: Thyroid lobe measures 4.1 x 1.5 x 1.3 cm, and is homogeneous in echotexture. Left: Thyroid lobe measures 4.4 x 1.5 x 1.3 cm, and is homogenous in echotexture. Isthmus: 3.7 mm thick. IMPRESSION: Normal ultrasound of the thyroid ACR TI-RADS definitions and recommendations: TI-RADS 1 (benign): 0 points. FNA not needed. TI-RADS 2 (not suspicious): 2 points. FNA not needed. TI-RADS 3 (mildly suspicious): 3 points. * FNA if 2.5 cm or larger, follow up if 1.5 cm or larger (at 1, 3, and 5 years). TI-RADS 4 (moderately suspicious): 4-6 points. * FNA if 1.5 cm or larger, follow up if 1 cm or larger (at 1, 2, 3, and 5 years). TI-RADS 5 (highly suspicious): 7 points or more. * FNA if 1 cm or larger, follow up if 0.5 cm or larger (every year for 5 years). Dictated by: Wally Phillips M.D. on 11/30/2021 at 12:26 Approved by: Wally Phillips M.D. on 11/30/2021 at 12:30
[2021-11-30 12:59] LABS: Add Manual Diff / Slide Review NO; Basophils Absolute Auto 0 /uL (0-100); Basophils Percent Auto 0.4 % (0-2); Eosinophils Absolute Auto 100 /uL (0-450); Eosinophils Percent Auto 1.2 % (2-4); Hematocrit 48.6 % (41-53); Hemoglobin 15.6 g/dL (13.5-17.5); Lymphocytes Absolute Auto 1600 /uL (1100-4500); Lymphocytes Percent Auto 29.6 % (25-40); Mean Corpuscular HGB Conc 32.1 % (30-36); Mean Corpuscular Hemoglobin 25.5 PG (26-34); Mean Corpuscular Volume 79.4 fL (80-100); Monocytes Absolute Auto 500 /uL (0-900); Monocytes Percent Auto 8.9 % (3-14); Neutrophils Absolute Auto 3300 /uL (1500-7000); Neutrophils Percent Auto 59.9 % (50-75); Platelet Count 215 X10^3/uL (150-400); Red Blood Cell Count 6.12 X10^6/uL (4.5-5.9); Red Cell Distribution Width 18.7 % (11.6-14.8); White Blood Cell Count 5.6 X10^3/uL (4.5-11.0)
[2021-11-30 13:20] LABS: HEMOLYSIS < 15 (0-50); Iron 109 ug/dL (49-181)
[2021-11-30 13:24] LABS: Alanine Aminotransferase 24 IU/L (<50); Albumin 4.6 g/dL (3.5-5.0); Albumin Globulin Ratio 1.5 (1.0-2.8); Alkaline Phosphatase 63 U/L (38-126); Aspartate Aminotransferase 29 IU/L (17-59); BUN Creatinine Ratio 13.5 (6-22); Bilirubin Total 0.8 mg/dL (0.2-1.3); Blood Urea Nitrogen 19 mg/dL (9-20); Calcium 9.3 mg/dL (8.4-10.2); Carbon Dioxide 29 mmol/L (22-32); Chloride 98 mmol/L (98-107); Cholesterol 212 mg/dL (140-199); Estimated Glomerular Filt Rate 53 mL/min (>60); Glucose 93 mg/dL (80-110); HDL Cholesterol 43 mg/dL (40-60); HEMOLYSIS < 15 (0-50); LDL Cholesterol Calculated 143 mg/dL (<100); Potassium 4.7 mmol/L (3.4-5.1); Sodium 140 mmol/L (137-145); Total Protein 7.6 g/dL (6.3-8.2); Triglycerides 131 mg/dL (35-150)
[2021-11-30 13:36] LABS: Percent Iron Saturation 22 % (20-50); Total Iron Binding Capacity 501 ug/dL (261-462); Transferrin 350 mg/dL (206-381)
[2021-11-30 13:43] LABS: Free T4, Direct Thyroxine 0.76 ng/dL (0.78-2.19)
[2021-11-30 13:55] LABS: Prostate Specific Antigen Scrn 2.97 ng/mL (0.1-4.0)
[2021-11-30 13:56] LABS: TSH w/ Reflex to FT4 1.84 uIU/mL (0.47-4.68)
[2021-11-30 15:28] LABS: Luteinizing Hormone < 0.216 mIU/mL
[2021-11-30 15:44] LABS: Estradiol, Total 36.8 pg/mL
[2021-12-12 05:12] LABS: Percent Free Testosterone 5.45 % (1.50-4.20); Testosterone Free 81.53 ng/dL (5.00-21.00); Testosterone Total 1495.9 ng/dL (264.0-916.0)
== END ==
PROVIDERS: PCP Family Medicine; Referring Provider Family Medicine; Visit Provider Family Medicine
DX: E04.1 Nontoxic single thyroid nodule (principal); E78.2 Mixed hyperlipidemia; Z12.5 Encounter for screening for malignant neoplasm of prostate; R79.89 Other specified abnormal findings of blood chemistry; D64.9 Anemia, unspecified; K64.8 Other hemorrhoids
CPT/HCPCS: 36415; 76536; 80053; 80061; 82670; 83002; 83540; 83550; 84402; 84403; 84439; 84443; 85025; G0103

== ENCOUNTER → 2021-12-13 10:09 | Outpatient (CLI) | payer MEDICARE, OTHER, SELFPAY ==
[2021-12-13 11:10] LABS: COVID19 -Nasal RAPID Negative (Negative)
== END ==
PROVIDERS: PCP Family Medicine; Visit Provider Surgery
DX: Z01.812 Encounter for preprocedural laboratory examination (principal); Z20.822 Contact with and (suspected) exposure to COVID-19
CPT/HCPCS: 87635; C9803

== ENCOUNTER 2021-12-14 15:04 | Day surgery (SDC) | payer MEDICARE, OTHER, SELFPAY ==
[2021-12-10 15:13] VITALS: BMI 28.1
[2021-12-14 15:14] VITALS: BP 158/92; PULSE 84; RESP 16; TEMP 36.2; O2SAT 100; BMI 28.1
[2021-12-14] MEDS: LACTATED RINGERS 1,000 ML 42 ML IV (15:25)
--- NOTE | 2021-12-14 16:23 | SUR.PREOP ---
Delayed entry: Patient originally scheduled for a 1500 surgery with a 14:00 check in time for pre-op. Pre-op nursing staff called patient advising of delay in start time due to previous surgical cases running at least an hour late. Patient asked to check in at 15:00. V/U.
--- NOTE | 2021-12-14 16:31 | SUR.PREOP ---
1630: patient remains in pre-op area awaiting surgery.
--- NOTE | 2021-12-14 16:43 | PM.PREOP ---
Pre-operative Note COVID-19 COVID-19 status: Negative Interval Note History & Physical reviewed/Exam performed by Physician: Yes Changes to H&P: No
--- NOTE | 2021-12-14 17:09 | SUR.OPER ---
Lithotomy on padded OR bed, head on pillow, arms secured on padded arm boards at <90 degrees abduction. Legs secured in padded yellow fins stirrups.
[2021-12-14] MEDS: BUPIVACAINE LIPOSOME 266 MG/20 ML VIAL INJ (17:15)
[2021-12-14 17:47] VITALS: BP 139/83; PULSE 77; RESP 11; TEMP 36.3; O2SAT 98
--- NOTE | 2021-12-14 17:49 | PM.OP.1 ---
Procedure & Clinicians Procedure: 1. Excisional Hemorrhoidectomy for external hemorrhoid - 1 column 2. Hemorrhoid banding of internal hemorrhoids 3 columns Same procedure as scheduled: Yes Indications: See H&P patient was seen in the office for complaints about hemorrhoids I discussed with him risks benefits and alternatives of exam under anesthesia with indicated hemorrhoid procedures he would like to proceed. Surgeon: Dominga Javier Anesthesia Type: General Operative Notes Findings: Patient was taken to the operating room a time-out was performed general LMA anesthesia was induced the patient was placed in lithotomy position. An exam was performed of the anal area after the area was prepped and draped in the usual fashion. The exam revealed 1 small left lateral external hemorrhoid and 3 columns of engorged internal hemorrhoids. I started the procedure by banding the 3 columns of the internal hemorrhoids. Each of the ends was placed above the dentate line. Next I turned attention to the external hemorrhoid I grabbed it and excised it sharply I used some electrocautery for hemostasis and placed a 3-0 chromic with a suture through the base of that hemorrhoid and closed the defect with a locking running fashion. A 3-0 chromic was used to close about 3 mm of skin in an interrupted fashion. Liposomal lidocaine was infused as an anal block all around the anal area and in particular around the external hemorrhoidectomy site. The area was hemostatic, mesh panties were applied and the patient tolerated the procedure well and went in good condition to postoperative care unit Specimen(s): none sent Complications: none Post-operative Condition: stable Disposition: PACU
[2021-12-14 17:52] VITALS: BP 143/82; PULSE 74; RESP 15; O2SAT 98
[2021-12-14 17:57] VITALS: BP 143/86; PULSE 71; RESP 10; O2SAT 97
[2021-12-14 18:02] VITALS: BP 137/88; PULSE 69; RESP 13; O2SAT 99
[2021-12-14 18:07] VITALS: BP 138/85; PULSE 68; RESP 14; TEMP 36.4; O2SAT 99
== END 2021-12-14 18:29 | disposition home or self-care (01) ==
PROVIDERS: PCP Family Medicine; Referring Provider Surgery; Visit Provider Surgery
PROC: (CPT 46221; principal; 2021-12-14 15:00)
DX: K64.1 Second degree hemorrhoids (principal); K64.4 Residual hemorrhoidal skin tags; E78.5 Hyperlipidemia, unspecified
CPT/HCPCS: 46221; 46999; C9290; J1100; J1885; J2405; J2704; J3010

== ENCOUNTER → 2022-02-01 10:09 | Outpatient (CLI) | payer MEDICARE, OTHER, SELFPAY ==
[2022-02-01 11:50] LABS: Influenza A - CEPHEID Flu A POSITIVE (NEGATIVE); Influenza B - CEPHEID Flu B NEGATIVE (NEGATIVE); Respiratory Syncytial Virus Negative (Negative)
[2022-02-01 11:53] LABS: COVID-19 CEPHEID 4-PLEX PCR Negative (Negative)
== END ==
PROVIDERS: PCP Family Medicine; Visit Provider Family Medicine
DX: J32.9 Chronic sinusitis, unspecified (principal); Z20.828 Contact with and (suspected) exposure to other viral communicable diseases
CPT/HCPCS: 0241U

== ENCOUNTER 2022-04-12 10:36 | Day surgery (SDC) | payer MEDICARE, OTHER, SELFPAY ==
--- NOTE | 2022-04-12 | PATH_ITS ---
[facility] Accession Number: [id number] No. of containers..04 Tissue . 01 Material submitted: . PART A: duodenum - DUODENAL BIOPSY PART B: PYLORIS - PYLORIS-BIOPSY PART C: gastrointestinal site - GASTRIC BIOPSY PART D: esophagus, E-G Junction - GE JUNCTION BIOPSY . 01 Diagnosis: A. Duodenum, Biopsy: Duodenal mucosa with patchy gastric surface foveolar metaplasia, active inflammation, and reactive epithelial changes. Negative for intraepithelial lymphocytosis. Negative for granulomas, dysplasia, and malignancy. . B. Stomach, Pylorus, Biopsy: Antral and body-type mucosa with mild chronic gastritis. Negative for Helicobacter by immunohistochemistry. Negative for intestinal metaplasia. Negative for dysplasia and malignancy. . C. Stomach, Body, Biopsy: Body-type mucosa with mild chronic gastritis. Negative for Helicobacter by immunohistochemistry. Negative for intestinal metaplasia. Negative for dysplasia and malignancy. . D. Gastroesophageal Junction, Biopsy: Squamocolumnar junctional mucosa with no diagnostic abnormality. Negative for intestinal metaplasia. Negative for dysplasia and malignancy. . [facility] 04/19/2022 1611 Local . 01 Electronically signed: . Anahi Bryan MD, Pathologist NPI- [id number] . 01 Gross description: . Part A: DUODENAL BIOPSY: Received in formalin are 3 fragment(s) of mendieta, soft tissue measuring 0.3 x 0.2 x 0.1 cm to 0.2 x 0.2 x 0.1 cm submitted entirely in 1 cassette(s) Part B: PYLORIS-BIOPSY: Received in formalin are 3 fragment(s) of mendieta, soft tissue measuring 0.3 x 0.1 x 0.1 cm to 0.1 x 0.1 x 0.1 cm submitted entirely in 1 cassette(s) Part C: GASTRIC BIOPSY: Received in formalin are 2 fragment(s) of mendieta, soft tissue measuring 0.3 x 0.2 x 0.1 cm to 0.3 x 0.1 x 0.1 cm submitted entirely in 1 cassette(s) Part D: GE JUNCTION BIOPSY: Received in formalin are 2 fragment(s) of mendieta, soft tissue measuring 0.3 x 0.2 x 0.1 cm to 0.2 x 0.2 x 0.1 cm submitted entirely in 1 cassette(s) /CPE 04/13/2022 0843 Local . 01 Microscopic: . B. An immunohistochemical stain was performed to evaluate for Helicobacter organisms and is negative. The control stain showed appropriate reactivity. . C. An immunohistochemical stain was performed to evaluate for Helicobacter organisms and is negative. The control stain showed appropriate reactivity. . D. An AB/PAS stain is performed to evaluate for intestinal metaplasia and is negative. The control stain showed appropriate reactivity. . * This test was developed and its performance characteristics determined by [employer]. It has not been cleared or approved by the U.S. Food and Drug Administration. The FDA has determined that such clearance or approval is not necessary. This test is used for clinical purposes. It should not be regarded as investigational or for research. . 01 Pathologist provided ICD-10: R14.0, D64.9 . 01 CPT . 104709, 380193, 572902, 936971, X68529, 532808 Specimen Comment: A courtesy copy of this report has been sent to [facility] Pathology Performed at: 01 [facility] includes the [facility] Cytology [address] [place] [address] [address] [facility], [place], [place] [id number] MD Guanakito Hargrove MD Phone: [phone]
[2022-04-12] MEDS: LACTATED RINGERS 1,000 ML 150 ML IV (10:58)
[2022-04-12 11:07] VITALS: BP 160/84; PULSE 77; RESP 16; TEMP 36.1; O2SAT 100; BMI 28.1
--- NOTE | 2022-04-12 12:38 | PM.PREOP ---
Pre-operative Note Interval Note History & Physical reviewed/Exam performed by Physician: Yes Changes to H&P: No
--- NOTE | 2022-04-12 13:04 | PM.OP.EGD ---
Operative Date/Time/Diagnoses Pre-op diagnosis: Early satiety Procedure & Clinicians Study performed: 1. EGD and biopsies 2. Rectal exam Surgeon: Dominga Javier Procedure Notes Procedure in detail: Patient was taken to the endoscopy suite and placed in a left lateral decubitus position. A time-out was performed. Conscious sedation provided with the help of Dr. Marsh, anesthesiologist. Before starting the EGD and while the patient was comfortable I did perform a rectal exam. There is a small hard lesion that remains from the hemorrhoidectomy surgery. It feels like a lump of scar tissue. It is quite small: approximately half a cm in diameter. There is no irritation around it no drainage, it is firm rubbery and well-circumscribed. I changed my gloves and began the EGD procedure. A bite block was placed and the scope was advanced into the mouth passed the tongue and into the esophagus. The esophagus appeared normal. The scope was advanced further into the stomach. There was some redness and irritation that looked like gastritis in the greater curvature of the stomach. Biopsies of this area and photographs were taken. The scope was then advanced to the pylorus there was an area near the pylorus that seemed especially irritated. Several biopsies were taken of this area. The scope was then passed through the pylorus and into the duodenum. There were some areas in the duodenum that appeared a little bit irritated as well photographs were obtained of this and biopsies were taken. The scope was then withdrawn and retroflexed to look up at the GE junction and a photograph was obtained. The scope was then withdrawn into the esophagus. At the GE junction there was mucosa that appeared intestinal or polypoid this area was biopsied. The scope was then further withdrawn patient was having a lot of coughing at this point and during the coughing I believe a very small hiatal hernia revealed itself. Photograph was obtained of this. Additional biopsies were taken of the GE junction. The remainder of the esophagus appeared normal as the scope was withdrawn. The patient tolerated the procedure well and went good condition to the postoperative care unit. Specimen(s): other (1. Duodenum 2. Pylorus - r/o h.pylori 3. Gastric 4. GE junction ) Complications: none Impression: The mucosa of the stomach did appear irritated and the GE junction had some mucosal changes which indicate to me that reflux seems to be a reasonable diagnosis. The biopsies will further provide information about the diagnosis of GERD. Biopsies were also sent for ruling out H pylori and if identified treatment could help with the patient's symptoms. There is perhaps a small hiatal hernia which can worsen the symptoms associated with GERD. For this reason I have sent a prescription for a proton pump inhibitor to try. I will follow up with the patient after the pathology results are obtained and as needed.
[2022-04-12 13:09] VITALS: BP 135/77; PULSE 56; RESP 12; TEMP 36.4; O2SAT 96
[2022-04-12 13:14] VITALS: BP 120/71; PULSE 55; RESP 11; O2SAT 96
[2022-04-12 13:18] VITALS: BP 141/85; PULSE 65; RESP 14; O2SAT 96
== END 2022-04-12 13:41 | disposition home or self-care (01) ==
PROVIDERS: PCP Family Medicine; Referring Provider Surgery; Visit Provider Surgery
PROC: 0DJ08ZZ Inspection of Upper Intestinal Tract, Via Natural or Artificial Opening Endoscopic (ICD-10-PCS; CPT 43235; principal; 2022-04-12 11:45)
DX: R68.81 Early satiety (principal); R14.0 Abdominal distension (gaseous); K46.9 Unspecified abdominal hernia without obstruction or gangrene; K64.8 Other hemorrhoids; K29.50 Unspecified chronic gastritis without bleeding
CPT/HCPCS: 45990; 43239; J2250; J3010

== ENCOUNTER → 2022-04-24 13:22 | Outpatient (CLI) | payer MEDICARE, OTHER, SELFPAY ==
--- NOTE | 2022-04-24 | DI.RAD.S_ITS ---
PROCEDURE: FL BARIUM SWALLOW W SPEECH INDICATIONS: Dysphagia, unspecified COMPARISON: None. TECHNIQUE: Examination was conducted in conjunction with speech pathology per standard protocol. In the lateral projection, filming was performed of the patient swallowing. AP projection filming may also be performed with patient swallowing. COMPARISON: FINDINGS: Function: The oral preparatory phase appears normal, with proper containment. The subsequent oral propulsive phase, pharyngeal phase, and esophageal phase of swallowing also appear normal with all proffered substances. No laryngotracheal penetration or aspiration. No pathologic vallecular pooling. Morphology: No cricopharyngeal bar is identified. No cervical esophageal webs. No Zenker's diverticulum. No strictures. IMPRESSION: 1. No penetration or aspiration. 2. Esophageal motility appears within normal limits. Dictated by: Mathieu Hogan M.D. on 04/24/2022 at 16:22 Approved by: Mathieu Hogan M.D. on 04/24/2022 at 16:23
--- NOTE | 2022-04-25 19:04 | ST.SWALLOW ---
Visit Care Team Role Provider Type Jaleel Santos MD Primary Care Provider Physician Specialty: Family Practice Address: [address] [place] [address], [id number] Email: [email or web address] Avinash Hager MD Attending Provider Physician Referring Provider Specialty: Ear, Nose, Throat Address: [address] [place] [address], [id number] Email: [email or web address] Modified Barium Swallow Study [employer] Modified Barium Swallow Study Start: 04/25/22 17:59 Freq: Status: Active Protocol: Document 04/24/22 18:01 LNK (Rec: 04/25/22 19:04 LNK [id number]) Modified Barium Swallow Study Total Time Visit Start Time 13:30 Visit Stop Time 14:15 Total Visit Minutes [address] Hager Reason for Referral dysphagia Setting Setting Outpatient Care Patient Information Identification Type Name,Date of Patient History Pt was seen for a Modified Barium Swallow Study at the referral of Dr Hager. pt reported that he has been experiencing tightness in his neck, pointing from the base of tongue to the sternal notch bilaterally. he has a PMH of TMJ and a sensation of plugged ears a hollow sound. he noted that when he has flown recently his ears have cleared without difficulty. Pt also has a history of GERD that seems to have flared up in the last 2-3 weeks. He described his swallow as if he were forcing himself to swallow with effort, even small amounts. The pt reported that approximately 1 year ago, he had a severe sinus infection that included significant coughing episodes. Finally the pt reported that he recently had a barium swallow exam that indicated a small hiatal hernia. Subjective Observations Pt was seated in the fluoroscopy chair with instructions and procedures provided, after which the pt agreed to proceed. Patient Positioning Position View Lat-A/P Imaging Lateral View Textures Administered Trials Presented Thin Liquid via Spoon,Thin Liquid via Cup,Pudding Thick Liquid via Spoon,Regular Textures,Barium Tablet Oral Phase Source: MBSIMP (TM) (C) Bolus Specific Scoring Grid Lip Closure No Impairment (WNL) Tongue Control During Bolus Hold WFL Bolus Prep/Mastication WFL Bolus Transport/Lingual Motion WFL A/P Lingual Propulsion Delay No Oral Residue WFL Residue Clearing WFL Nasal Regurgitation No Additional Oral Phase Observations OME and DKS were observed to be WNL. However when the pt opened his mouth to receive the contrast in a spoon, a tremor observed in the jaw/ lower half of his face. This was observed across trials. Dr. Hager reported a laryngeal tremor during laryngoscopic evaluation. ORAL PHASE: Bolus hold, control and mastication were observed to be WFL. Minimal oral residue was observed post swallows. Pharyngeal Phase Source: MBSIMP (TM) (C) Bolus Specific Scoring Grid Delayed Initiation of Pharyngeal Swallow No Soft Palate Elevation No Impairment (WNL) Tongue Base Strength/Range of Motion No Impairment (WNL) Residue Along the Tongue Base Yes: minimal to trace Clearance of Residue Along Tongue Base No Impairment (WNL) Laryngeal Elevation No Impairment (WNL) Anterior Hyoid Movement No Impairment (WNL) Epiglottic Range of Motion No Impairment (WNL) Vallecular Residue Yes: minimal to trace Clearance of Vallecular Residue Minimal Impairment Laryngeal Vestibular Closure No Impairment (WNL) Pharyngeal Stripping Wave Minimal Impairment Posterior Pharyngeal Wall Residue Yes: minimal to trace Clearance of Posterior Pharyngeal Wall No Impairment (WNL) Residue Upper Esophageal Sphincter Opening No Impairment (WNL) Residue in the Pyriform Sinuses Yes: minimal to trace Clearance of Residue in the Pyriform No Impairment (WNL) Sinuses Esophageal Clearance Upright Position No Impairment (WNL) Pharyngoesophageal Backflow Observed No Additional Pharyngeal Phase Observations Pharyngeal swallow was observed to be WFL. Minimal pooling of contrast noted, which was cleared with second swallow. Tongue base, hyolaryngeal elevation, airway protection and transition to the UES were observed to be WFL. There did not appear to be a reduction in the UES duration or the extension. There were osteophytes noted at C5-C6 that altered the bolus flow but did not interfere with the flow. A/P View Textures Administered Trials Presented Thin Liquid via Spoon,Barium Tablet A/P View Observations Esophageal Function No Impairment (WNL) Esophageal Clearance Upright Position No Impairment (WNL) Clinical Impressions Findings Pt's swallow was observed to be WFL. No airway penetration or aspiration were observed. However, as the pt described a a tightness of his neck and base of tongue, a sense of forcefully swallowing, an observed jaw tremor along with Dr. Hager's description of a laryngeal tremor, appear to suggest neurological changes. A referral to neurologist is recommended Patient Appropriate for Therapy No Recommendations Diet Comments No diet change Treatment Plan Recommended Referrals Neurology
== END ==
PROVIDERS: PCP Family Medicine; Referring Provider Otolaryngology; Visit Provider Otolaryngology
DX: R13.10 Dysphagia, unspecified (principal); K22.4 Dyskinesia of esophagus
CPT/HCPCS: 74230; 92611

== ENCOUNTER 2022-05-15 09:25 | Outpatient (RCR) | payer MEDICARE, OTHER, SELFPAY ==
--- NOTE | 2022-05-15 13:04 | ST.OPIE ---
Visit Care Team Role Provider Type Jaleel Santos MD Attending Provider Physician Family Provider Primary Care Provider Referring Provider Specialty: [facility] Practice Address: [address] [place] [address], [facility] Email: [email or web address] Speech-Language Pathology Initial Evaluation [employer] Clinical Swallow Evaluation Start: 05/15/22 09:31 Freq: Status: Active Protocol: Document 05/15/22 11:44 LNK (Rec: 05/15/22 13:03 LNK [id number]) Clinical Swallow Evaluation Session Time Visit Start Time 06:30 Visit Stop Time 10:20 Total Visit Minutes [address] Santos Reason for Referral dysphagia Patient Information History Pt was seen for a Modified Barium Swallow Study at the refereal of Dr Hager. pt reported that he has been experiencing tightness in his neck, pointing from the base of tongue to the sternal notch bilaterally. he has a PMH of TMJ and a sensation of plugged ears a hollow sound. he noted that when he has flown recently his ears have cleared without difficulty. Pt also has a history of GERD that seems to have flared up in the last 2-3 weeks. He described his swallow as if he were forcing himself to swallow with effort, even small amounts. The pt reported that approximately 1 year ago, he had a severe sinus infection that included significant coughing episodes. Finally the pt reported that he recently had a bariuim swallow exam that indicated a small hiatal hernia. Objective Assessment Mental Status Alert,Responsive,Cooperative Oral Integrity WFL Dentition Within normal limits Lip Function Within normal limits Tongue Function Within normal limits Jaw Function Within normal limits Hard/Soft Palate Function Within normal limits Food and Liquid Trials Results No PO trials were provided as pt was here to review his MBSS with this [employer]. A computer graphic video was used to demonstrate to the pt what a typical swallow would look like via videofluoroscopy. pt indicated he understood and review of his MBSS then befgan. The results were described for the pt with explanation of the findings observed on the MBSS. Findings Swallowing Function Within functional limits Comment Pt's swallow was observed to be WFL on the MBSS. No airway penetration or aspiration were observed. See full MBSS report dated 04/24/22. Today, the pt continues to describe a a tightness of his neck and base of tongue, and a sense of forcefully swallowing. During the MBSS a jaw tremor was observed. Dr. Hager's described a laryngeal tremor. Today, head and hand tremors were observed . The above described observations appear to suggest neurological changes. A referral to neurologist is recommended. Swallow therapy is not indicated. Impact on Safety and Functioning No limitations Recommendations Other Recommendations No diet changes recommended Referrals Recommended Referrals Neurology Education Patient/Caregiver Education Described results of evaluation,Patient expressed understanding of evaluation, Patient expressed agreement with goals & treatment plans
== END 2022-05-16 11:44 | disposition home or self-care (01) ==
LOC: SP 09:25
PROVIDERS: Family Provider Family Medicine; PCP Family Medicine; Referring Provider Family Medicine; Visit Provider Family Medicine
DX: R13.10 Dysphagia, unspecified (principal)
CPT/HCPCS: 92610

== ENCOUNTER → 2022-05-25 14:06 | Outpatient (CLI) | payer MEDICARE, OTHER, SELFPAY ==
--- NOTE | 2022-05-25 14:10 | DI.RAD.S_ITS ---
PROCEDURE: XR HAND LT MIN 3V INDICATIONS: Hand/finger issue TECHNIQUE: 3 views of the hand(s) acquired. COMPARISON: None. FINDINGS: Bones: No fractures or dislocations. Carpal bones are normally aligned. Mild hand and wrist joint osteoarthritic changes are seen most notably at 1st CMC joint. No suspicious bony lesions. Soft tissues: No suspicious soft tissue calcifications. IMPRESSION: No left hand fracture or dislocation. 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 Dictated by: Thang Hull M.D. on 05/25/2022 at 14:34 Approved by: Thang Hull M.D. on 05/25/2022 at 14:35
== END ==
PROVIDERS: Family Provider Family Medicine; PCP Family Medicine; Referring Provider Nurse Practitioner Family; Visit Provider Nurse Practitioner Family
DX: M19.042 Primary osteoarthritis, left hand (principal); M79.89 Other specified soft tissue disorders
CPT/HCPCS: 73130

== ENCOUNTER → 2022-06-15 10:59 | Outpatient (CLI) | payer MEDICARE, OTHER, SELFPAY ==
[2022-06-15 11:20] LABS: Add Manual Diff / Slide Review NO; Basophils Absolute Auto 0 /uL (0-100); Basophils Percent Auto 0.7 % (0-2); Eosinophils Absolute Auto 100 /uL (0-450); Eosinophils Percent Auto 1.4 % (2-4); Hematocrit 45.3 % (41-53); Hemoglobin 14.5 g/dL (13.5-17.5); Lymphocytes Absolute Auto 1700 /uL (1100-4500); Lymphocytes Percent Auto 29.3 % (25-40); Mean Corpuscular HGB Conc 32.1 % (30-36); Mean Corpuscular Hemoglobin 24.5 PG (26-34); Mean Corpuscular Volume 76.3 fL (80-100); Monocytes Absolute Auto 600 /uL (0-900); Monocytes Percent Auto 9.6 % (3-14); Neutrophils Absolute Auto 3400 /uL (1500-7000); Platelet Count 220 X10^3/uL (150-400); Red Blood Cell Count 5.94 X10^6/uL (4.5-5.9); Red Cell Distribution Width 17.5 % (11.6-14.8); White Blood Cell Count 5.8 X10^3/uL (4.5-11.0)
[2022-06-15 11:40] LABS: HEMOLYSIS < 15 (0-50); Iron 64 ug/dL (49-181)
[2022-06-15 11:42] LABS: Alanine Aminotransferase 23 IU/L (<50); Albumin 4.3 g/dL (3.5-5.0); Albumin Globulin Ratio 1.4 (1.0-2.8); Alkaline Phosphatase 52 U/L (38-126); Aspartate Aminotransferase 28 IU/L (17-59); BUN Creatinine Ratio 13.2 (6-22); Bilirubin Total 0.9 mg/dL (0.2-1.3); Blood Urea Nitrogen 18 mg/dL (9-20); Calcium 8.9 mg/dL (8.4-10.2); Carbon Dioxide 29 mmol/L (22-32); Chloride 102 mmol/L (98-107); Cholesterol 207 mg/dL (140-199); Estimated Glomerular Filt Rate 55 mL/min (>60); Glucose 93 mg/dL (80-110); HDL Cholesterol 45 mg/dL (40-60); HEMOLYSIS < 15 (0-50); LDL Cholesterol Calculated 140 mg/dL (<100); Potassium 4.7 mmol/L (3.4-5.1); Sodium 138 mmol/L (137-145); Total Protein 7.3 g/dL (6.3-8.2); Triglycerides 111 mg/dL (35-150)
[2022-06-15 11:51] LABS: Percent Iron Saturation 14 % (20-50); Total Iron Binding Capacity 472 ug/dL (261-462); Transferrin 349 mg/dL (206-381)
[2022-06-15 11:59] LABS: Free T4, Direct Thyroxine 0.71 ng/dL (0.78-2.19)
[2022-06-15 12:13] LABS: Thyroid Stimulating Hormone 2.02 uIU/mL (0.47-4.68)
[2022-06-15 12:17] LABS: Ferritin 8 ng/mL (18-464)
== END ==
PROVIDERS: Family Provider Family Medicine; PCP Family Medicine; Referring Provider Family Medicine; Visit Provider Family Medicine
DX: E78.5 Hyperlipidemia, unspecified; D64.9 Anemia, unspecified; R25.1 Tremor, unspecified; R79.89 Other specified abnormal findings of blood chemistry; E78.2 Mixed hyperlipidemia
CPT/HCPCS: 36415; 80053; 80061; 82728; 83540; 83550; 84439; 84443; 85025

== ENCOUNTER → 2022-10-18 08:09 | Outpatient (CLI) | payer MEDICARE, OTHER, SELFPAY ==
[2022-10-18 09:43] LABS: Cholesterol 204 mg/dL (140-199); HDL Cholesterol 46 mg/dL (40-60); LDL Cholesterol Calculated 136 mg/dL (<100); Triglycerides 112 mg/dL (35-150)
== END ==
PROVIDERS: Family Provider Family Medicine; PCP Family Medicine; Referring Provider Internal Medicine Cardiovascular Disease; Visit Provider Internal Medicine Cardiovascular Disease
DX: E78.5 Hyperlipidemia, unspecified (principal)
CPT/HCPCS: 36415; 80061

== ENCOUNTER → 2022-11-05 12:15 | Outpatient (CLI) | payer MEDICARE, OTHER, SELFPAY ==
[2022-11-05 12:51] LABS: Add Manual Diff / Slide Review NO; Basophils Absolute Auto 0 /uL (0-100); Basophils Percent Auto 0.4 % (0-2); Eosinophils Absolute Auto 0 /uL (0-450); Eosinophils Percent Auto 0.7 % (2-4); Hematocrit 45.9 % (41-53); Lymphocytes Absolute Auto 1800 /uL (1100-4500); Lymphocytes Percent Auto 29.3 % (25-40); Mean Corpuscular HGB Conc 32.6 % (30-36); Mean Corpuscular Hemoglobin 25.7 PG (26-34); Mean Corpuscular Volume 78.9 fL (80-100); Monocytes Absolute Auto 600 /uL (0-900); Monocytes Percent Auto 9.5 % (3-14); Neutrophils Absolute Auto 3800 /uL (1500-7000); Neutrophils Percent Auto 60.1 % (50-75); Platelet Count 214 X10^3/uL (150-400); Red Blood Cell Count 5.82 X10^6/uL (4.5-5.9); Red Cell Distribution Width 16.7 % (11.6-14.8); White Blood Cell Count 6.3 X10^3/uL (4.5-11.0)
[2022-11-05 13:22] LABS: HEMOLYSIS < 15 (0-50); Iron 70 ug/dL (49-181)
[2022-11-05 13:25] LABS: Alanine Aminotransferase 22 IU/L (<50); Albumin 4.7 g/dL (3.5-5.0); Albumin Globulin Ratio 1.7 (1.0-2.8); Alkaline Phosphatase 50 U/L (38-126); Aspartate Aminotransferase 27 IU/L (17-59); BUN Creatinine Ratio 15.2 (6-22); Bilirubin Total 0.8 mg/dL (0.2-1.3); Blood Urea Nitrogen 23 mg/dL (9-20); Calcium 9.6 mg/dL (8.4-10.2); Carbon Dioxide 29 mmol/L (22-32); Chloride 100 mmol/L (98-107); Cholesterol 165 mg/dL (140-199); Estimated Glomerular Filt Rate 48 mL/min (>60); Globulin 2.8 g/dL (1.7-4.1); Glucose 93 mg/dL (80-110); HDL Cholesterol 46 mg/dL (40-60); HEMOLYSIS < 15 (0-50); LDL Cholesterol Calculated 98 mg/dL (<100); Potassium 4.6 mmol/L (3.4-5.1); Sodium 137 mmol/L (137-145); Total Protein 7.5 g/dL (6.3-8.2); Triglycerides 106 mg/dL (35-150)
[2022-11-05 13:35] LABS: Percent Iron Saturation 13 % (20-50); Total Iron Binding Capacity 531 ug/dL (261-462); Transferrin 393 mg/dL (206-381)
[2022-11-05 13:54] LABS: TSH w/ Reflex to FT4 2.48 uIU/mL (0.47-4.68)
[2022-11-05 13:58] LABS: Ferritin 9 ng/mL (18-464)
== END ==
PROVIDERS: Family Provider Family Medicine; PCP Family Medicine; Referring Provider Family Medicine; Visit Provider Family Medicine
DX: D50.0 Iron deficiency anemia secondary to blood loss (chronic) (principal); E78.2 Mixed hyperlipidemia; R79.89 Other specified abnormal findings of blood chemistry
CPT/HCPCS: 36415; 80053; 80061; 82728; 83540; 83550; 84443; 85025

== ENCOUNTER → 2022-11-06 18:49 | Outpatient (CLI) | payer MEDICARE, OTHER, SELFPAY ==
--- NOTE | 2022-11-06 | DI.MRI.S_ITS ---
PROCEDURE: MR KNEE RT WO CON INDICATIONS: Unspecified internal derangement of right knee TECHNIQUE: Noncontrast sagittal PD fast spin echo and T2 fast spin echo with fat saturation, sagittal 3-D FLASH with fat saturation; coronal T1 spin echo and PD fast spin echo with fat saturation, and axial PD fast spin echo with fat saturation through the knee. COMPARISON: [facility], MR, MR KNEE RT WO CON, 11/17/2020, 16:50. FINDINGS: Image quality: Excellent. Menisci: Subtle oblique tear involving posterior horn of medial meniscus is seen extending to inferior articulating surface. The lateral meniscus is intact. The meniscal root ligaments appear intact. Cruciate ligaments: The anterior and posterior cruciate ligaments appear intact. Medial structures: The medial collateral ligament appears intact. The posterior oblique ligament, semimembranosus tendon insertions, oblique popliteal ligament, and meniscocapsular junction appear intact. Visualized portions of the pes anserinus tendons appear normal. No abnormal bursal fluid. Lateral structures: The lateral collateral ligament is mildly thickened. The long and short heads of the biceps femoris tendon appear intact. The popliteus tendon appears normal; the popliteofibular ligament appears intact. Iliotibial band appears normal. Anterior structures: The quadriceps tendon is intact. Thickened patellar tendon particularly involving its mid to distal portion extending to its anterior tibial insertion is seen. Patellar alignment is normal. No femoral trochlear dysplasia or ventral trochlear prominence. No edema in the infrapatellar fat pad. Bones and cartilage: No bone marrow contusions or fractures. Mild tricompartmental osteoarthritis and low-grade chondromalacia is seen most notably in medial femoral tibial compartment. Joint space: There is small to moderate knee joint fluid. No Ríos's cyst. Normal appearing synovial plicae are incidentally noted. IMPRESSION: 1. Subtle oblique tear involving posterior horn of medial meniscus extending to inferior articulating surface. The lateral meniscus is intact. 2. The cruciate ligaments are intact. Low-grade LCL sprain. 3. Moderate grade patellar tendinosis as above. No patellar tendon rupture. The quadriceps tendon is intact. 4. Mild tricompartmental osteoarthritis and low-grade chondromalacia more notably in medial femoral tibial compartment. No fracture or dislocation. No suspicious bony lesions. 5. Small to moderate amount of joint fluid, no gross loose bodies. Dictated by: Thang Hull M.D. on 11/07/2022 at 9:51 Approved by: Thang Hull M.D. on 11/07/2022 at 9:59
== END ==
PROVIDERS: Family Provider Family Medicine; PCP Family Medicine; Referring Provider Orthopaedic Surgery Foot and Ankle Surgery; Visit Provider Orthopaedic Surgery Foot and Ankle Surgery
DX: S83.241A Other tear of medial meniscus, current injury, right knee, initial encounter (principal); S83.421A Sprain of lateral collateral ligament of right knee, initial encounter; M23.91 Unspecified internal derangement of right knee; M17.11 Unilateral primary osteoarthritis, right knee; M94.261 Chondromalacia, right knee
CPT/HCPCS: 73721

== ENCOUNTER → 2023-01-17 14:44 | Outpatient (CLI) | payer MEDICARE, OTHER, SELFPAY ==
[2023-01-17 17:51] LABS: BUN Creatinine Ratio 15.8 (6-22); Blood Urea Nitrogen 21 mg/dL (9-20); Calcium 9.5 mg/dL (8.4-10.2); Carbon Dioxide 28 mmol/L (22-32); Chloride 99 mmol/L (98-107); Cholesterol 211 mg/dL (140-199); Estimated Glomerular Filt Rate 56 mL/min (>60); Glucose 83 mg/dL (80-110); HDL Cholesterol 43 mg/dL (40-60); HEMOLYSIS < 15 (0-50); LDL Cholesterol Calculated 148 mg/dL (<100); Potassium 4.6 mmol/L (3.4-5.1); Sodium 136 mmol/L (137-145); Triglycerides 102 mg/dL (35-150)
[2023-01-17 18:21] LABS: Prostate Specific Antigen 3.54 ng/mL (0.10-4.00)
== END ==
PROVIDERS: Family Provider Family Medicine; PCP Family Medicine; Referring Provider Internal Medicine Gastroenterology; Visit Provider Internal Medicine Gastroenterology
DX: E11.9 Type 2 diabetes mellitus without complications (principal); I10 Essential (primary) hypertension; R97.20 Elevated prostate specific antigen [PSA]
CPT/HCPCS: 36415; 80048; 80061; 84153

== ENCOUNTER → 2023-02-02 14:49 | Outpatient (CLI) | payer MEDICARE, OTHER, SELFPAY ==
--- NOTE | 2023-02-02 14:52 | DI.RAD.S_ITS ---
PROCEDURE: XR ELBOW RT MIN 3V INDICATIONS: Right elbow pain TECHNIQUE: 3 views of the elbow were acquired. COMPARISON: None. FINDINGS: Bones: No fractures or dislocations. No suspicious bony lesions. Soft tissues: No elbow joint effusion. No suspicious soft tissue calcifications. IMPRESSION: No acute bony abnormality or significant joint effusion. Dictated by: Mathieu Hogan M.D. on 02/02/2023 at 20:58 Approved by: Mathieu Hogan M.D. on 02/02/2023 at 20:58
== END ==
PROVIDERS: Family Provider Family Medicine; PCP Family Medicine; Referring Provider Nurse Practitioner Family; Visit Provider Nurse Practitioner Family
DX: M25.421 Effusion, right elbow (principal)
CPT/HCPCS: 73080

== ENCOUNTER → 2023-02-17 12:56 | Outpatient (CLI) | payer MEDICARE, OTHER, SELFPAY ==
[2023-02-17 15:22] LABS: Uric Acid 6.7 mg/dL (3.5-8.5)
== END ==
PROVIDERS: Family Provider Family Medicine; PCP Family Medicine; Referring Provider Family Medicine; Visit Provider Family Medicine
DX: M25.50 Pain in unspecified joint (principal); M25.421 Effusion, right elbow
CPT/HCPCS: 36415; 84550

== ENCOUNTER → 2023-02-22 08:33 | Outpatient (CLI) | payer MEDICARE, OTHER, SELFPAY ==
--- NOTE | 2023-02-22 08:34 | DI.MRI.S_ITS ---
PROCEDURE: MR ELBOW RT WO CON INDICATIONS: Right lateral epicondylitis TECHNIQUE: Noncontrast coronal proton density fast spin echo and T2 fast spin echo with fat saturation, axial and sagittal T1 spin echo and T2 fast spin echo with fat saturation through the elbow. COMPARISON: None. FINDINGS: Image quality: Excellent. Lateral structures: The lateral ulnar collateral ligament and radial collateral ligament both appear thickened at their lateral epicondylar insertion. The overlying common extensor tendon also appears thickened with intrasubstance T2 hyperintense signal at its lateral epicondylar insertion. Medial structures: The ulnar collateral ligament appears intact. The overlying common flexor tendon appears normal. The ulnar nerve appears normal in size and signal within the cubital tunnel. Anterior structures: The biceps and brachialis tendons both appear intact as they insert onto the proximal radius and ulna, respectively. No bicipitoradial bursal fluid. The median and radial neurovascular bundles appear normal; no focal muscle atrophy to suggest nerve impingement. Posterior structures: Distal triceps tendinosis at its insertion on proximal olecranon is seen. No olecranon bursal fluid. Bone and cartilage: Mild edema involving olecranon near distal triceps tendon insertion is noted without discrete fracture line. No other area of abnormal marrow signal. No osteochondral injuries. IMPRESSION: 1. Low to moderate grade lateral epicondylitis as above. 2. Low-grade distal triceps tendinosis. 3. Contusion involving proximal olecranon near distal triceps insertion. No fracture or dislocation. No osteochondral injuries. Dictated by: Thang Hull M.D. on 02/22/2023 at 9:38 Approved by: Thang Hull M.D. on 02/22/2023 at 9:39
== END ==
LOC: MRI 08:34
PROVIDERS: Family Provider Family Medicine; PCP Family Medicine; Referring Provider Family Medicine; Visit Provider Family Medicine
DX: M77.11 Lateral epicondylitis, right elbow (principal); S50.01XA Contusion of right elbow, initial encounter
CPT/HCPCS: 73221

== ENCOUNTER → 2023-02-26 13:07 | Outpatient (CLI) | payer MEDICARE, OTHER, SELFPAY ==
[2023-02-26 13:57] LABS: Add Manual Diff / Slide Review NO; Basophils Absolute Auto 0 /uL (0-100); Basophils Percent Auto 0.6 % (0-2); Eosinophils Absolute Auto 400 /uL (0-450); Hematocrit 44.5 % (41-53); Hemoglobin 14.6 g/dL (13.5-17.5); Lymphocytes Absolute Auto 1800 /uL (1100-4500); Lymphocytes Percent Auto 26.7 % (25-40); Mean Corpuscular HGB Conc 32.8 % (30-36); Mean Corpuscular Volume 79.2 fL (80-100); Monocytes Absolute Auto 600 /uL (0-900); Monocytes Percent Auto 9.4 % (3-14); Neutrophils Absolute Auto 3900 /uL (1500-7000); Neutrophils Percent Auto 57.3 % (50-75); Platelet Count 221 X10^3/uL (150-400); Red Blood Cell Count 5.62 X10^6/uL (4.5-5.9); Red Cell Distribution Width 17.5 % (11.6-14.8); White Blood Cell Count 6.8 X10^3/uL (4.5-11.0)
[2023-02-26 14:33] LABS: HEMOLYSIS < 15 (0-50); Iron 64 ug/dL (49-181)
[2023-02-26 14:36] LABS: Alanine Aminotransferase 25 IU/L (<50); Albumin 4.2 g/dL (3.5-5.0); Albumin Globulin Ratio 1.4 (1.0-2.8); Alkaline Phosphatase 52 U/L (38-126); Aspartate Aminotransferase 29 IU/L (17-59); BUN Creatinine Ratio 17.2 (6-22); Bilirubin Total 0.7 mg/dL (0.2-1.3); Blood Urea Nitrogen 23 mg/dL (9-20); Calcium 9.3 mg/dL (8.4-10.2); Carbon Dioxide 29 mmol/L (22-32); Chloride 101 mmol/L (98-107); Estimated Glomerular Filt Rate 56 mL/min (>60); Globulin 2.9 g/dL (1.7-4.1); Glucose 91 mg/dL (80-110); Potassium 4.3 mmol/L (3.4-5.1); Sodium 138 mmol/L (137-145); Total Protein 7.1 g/dL (6.3-8.2)
[2023-02-26 14:44] LABS: Percent Iron Saturation 15 % (20-50); Total Iron Binding Capacity 429 ug/dL (261-462); Transferrin 367 mg/dL (206-381)
[2023-02-26 14:47] LABS: HEMOLYSIS < 15 (0-50)
[2023-02-26 17:00] LABS: Ferritin 9 ng/mL (18-464)
== END ==
LOC: LAB 13:12
PROVIDERS: Family Provider Family Medicine; PCP Family Medicine; Referring Provider Internal Medicine Hematology & Oncology; Visit Provider Internal Medicine Hematology & Oncology
DX: D50.9 Iron deficiency anemia, unspecified (principal)
CPT/HCPCS: 36415; 80053; 82728; 83540; 83550; 85025

== ENCOUNTER → 2023-04-11 10:11 | Outpatient (CLI) | payer MEDICARE, OTHER, SELFPAY ==
[2023-04-11 11:05] LABS: Add Manual Diff / Slide Review NO; Basophils Absolute Auto 0 /uL (0-100); Basophils Percent Auto 0.5 % (0-2); Eosinophils Absolute Auto 100 /uL (0-450); Eosinophils Percent Auto 1.8 % (2-4); Hematocrit 48.8 % (41-53); Hemoglobin 15.7 g/dL (13.5-17.5); Lymphocytes Absolute Auto 1800 /uL (1100-4500); Mean Corpuscular HGB Conc 32.3 % (30-36); Mean Corpuscular Hemoglobin 25.6 PG (26-34); Mean Corpuscular Volume 79.4 fL (80-100); Monocytes Absolute Auto 500 /uL (0-900); Neutrophils Absolute Auto 3500 /uL (1500-7000); Neutrophils Percent Auto 58.7 % (50-75); Platelet Count 202 X10^3/uL (150-400); Red Blood Cell Count 6.14 X10^6/uL (4.5-5.9); Red Cell Distribution Width 17.6 % (11.6-14.8); White Blood Cell Count 5.9 X10^3/uL (4.5-11.0)
[2023-04-11 11:42] LABS: Alanine Aminotransferase 20 IU/L (<50); Albumin 4.5 g/dL (3.5-5.0); Albumin Globulin Ratio 1.5 (1.0-2.8); Alkaline Phosphatase 53 U/L (38-126); Aspartate Aminotransferase 26 IU/L (17-59); BUN Creatinine Ratio 15.4 (6-22); Bilirubin Total 0.6 mg/dL (0.2-1.3); Blood Urea Nitrogen 21 mg/dL (9-20); Calcium 9.4 mg/dL (8.4-10.2); Carbon Dioxide 30 mmol/L (22-32); Chloride 103 mmol/L (98-107); Cholesterol 176 mg/dL (140-199); Estimated Glomerular Filt Rate 55 mL/min (>60); Glucose 99 mg/dL (80-110); HDL Cholesterol 43 mg/dL (40-60); HEMOLYSIS < 15 (0-50); LDL Cholesterol Calculated 120 mg/dL (<100); Potassium 4.6 mmol/L (3.4-5.1); Sodium 139 mmol/L (137-145); Total Protein 7.5 g/dL (6.3-8.2); Triglycerides 67 mg/dL (35-150)
[2023-04-11 12:03] LABS: Estradiol, Total 24.2 pg/mL
[2023-04-11 12:05] LABS: TSH w/ Reflex to FT4 2.26 uIU/mL (0.47-4.68)
[2023-04-12 05:39] LABS: Apolipoprotein B 103 mg/dL (<90)
[2023-04-13 21:35] LABS: Lipoprotein (a) 37.7 nmol/L (<75.0)
== END ==
PROVIDERS: Family Provider Family Medicine; PCP Family Medicine; Referring Provider Family Medicine; Visit Provider Family Medicine
DX: M77.11 Lateral epicondylitis, right elbow (principal); D64.9 Anemia, unspecified; R79.89 Other specified abnormal findings of blood chemistry; E78.5 Hyperlipidemia, unspecified; E34.9 Endocrine disorder, unspecified
CPT/HCPCS: 36415; 80053; 80061; 82172; 82670; 83695; 84402; 84403; 84443; 85025

== ENCOUNTER → 2023-05-14 10:46 | Outpatient (CLI) | payer MEDICARE, OTHER, SELFPAY ==
[2023-05-14 11:59] LABS: HEMOLYSIS < 15 (0-50); Iron 106 ug/dL (49-181)
[2023-05-14 12:09] LABS: Percent Iron Saturation 25 % (20-50); Total Iron Binding Capacity 432 ug/dL (261-462); Transferrin 362 mg/dL (206-381)
[2023-05-19 18:42] LABS: Percent Free Testosterone 4.28 % (1.50-4.20); Testosterone Free 38.64 ng/dL (5.00-21.00); Testosterone Total 902.7 ng/dL (264.0-916.0)
== END ==
PROVIDERS: Family Provider Family Medicine; PCP Family Medicine; Referring Provider Family Medicine; Visit Provider Family Medicine
DX: R79.89 Other specified abnormal findings of blood chemistry (principal); D50.0 Iron deficiency anemia secondary to blood loss (chronic)
CPT/HCPCS: 36415; 82670; 83540; 83550; 84402; 84403

== ENCOUNTER → 2023-05-21 13:20 | Outpatient (CLI) | payer MEDICARE, OTHER, SELFPAY ==
[2023-05-22 12:37] LABS: Ferritin 9 ng/mL (18-464)
== END ==
LOC: LAB 13:21
PROVIDERS: Family Provider Family Medicine; PCP Family Medicine; Referring Provider Family Medicine; Visit Provider Family Medicine
DX: D50.0 Iron deficiency anemia secondary to blood loss (chronic) (principal)
CPT/HCPCS: 36415; 82728

== ENCOUNTER → 2023-06-03 09:46 | Outpatient (CLI) | payer MEDICARE, OTHER, SELFPAY ==
[2023-06-03 10:37] LABS: Add Manual Diff / Slide Review NO; Basophils Absolute Auto 0 /uL (0-100); Basophils Percent Auto 0.2 % (0-2); Eosinophils Absolute Auto 100 /uL (0-450); Hematocrit 49.7 % (41-53); Hemoglobin 16.4 g/dL (13.5-17.5); Lymphocytes Absolute Auto 1900 /uL (1100-4500); Lymphocytes Percent Auto 33.8 % (25-40); Mean Corpuscular Hemoglobin 26.8 PG (26-34); Mean Corpuscular Volume 81.2 fL (80-100); Monocytes Absolute Auto 500 /uL (0-900); Monocytes Percent Auto 9.5 % (3-14); Neutrophils Absolute Auto 3100 /uL (1500-7000); Neutrophils Percent Auto 54.5 % (50-75); Platelet Count 197 X10^3/uL (150-400); Red Blood Cell Count 6.12 X10^6/uL (4.5-5.9); Red Cell Distribution Width 19.3 % (11.6-14.8); White Blood Cell Count 5.7 X10^3/uL (4.5-11.0)
[2023-06-03 10:52] LABS: HEMOLYSIS < 15 (0-50); Iron 83 ug/dL (49-181)
[2023-06-03 10:59] LABS: Uric Acid 6.5 mg/dL (3.5-8.5)
[2023-06-03 11:07] LABS: Percent Iron Saturation 19 % (20-50); Total Iron Binding Capacity 435 ug/dL (261-462); Transferrin 337 mg/dL (206-381)
[2023-06-03 20:19] LABS: Ferritin 9 ng/mL (18-464); Testosterone 693 ng/dL (71.8-623)
== END ==
LOC: LAB 09:48
PROVIDERS: Family Provider Family Medicine; PCP Family Medicine; Referring Provider Nurse Practitioner Gerontology; Visit Provider Specialist/Technologist Athletic Trainer
DX: M1A.09X0 Idiopathic chronic gout, multiple sites, without tophus (tophi) (principal); D50.9 Iron deficiency anemia, unspecified; R79.89 Other specified abnormal findings of blood chemistry
CPT/HCPCS: 36415; 82728; 83540; 83550; 84403; 84550; 85025

== ENCOUNTER → 2023-06-13 12:59 | Outpatient (CLI) | payer MEDICARE, OTHER, SELFPAY ==
[2023-06-13 14:26] LABS: Hematocrit 50.9 % (41-53); Hemoglobin 16.8 g/dL (13.5-17.5)
[2023-06-13 14:52] LABS: BUN Creatinine Ratio 18.2 (6-22); Blood Urea Nitrogen 26 mg/dL (9-20); Calcium 9.2 mg/dL (8.4-10.2); Carbon Dioxide 26 mmol/L (22-32); Chloride 105 mmol/L (98-107); Estimated Glomerular Filt Rate 52 mL/min (>60); Glucose 80 mg/dL (80-110); HEMOLYSIS 28 (0-50); Potassium 4.5 mmol/L (3.4-5.1); Sodium 138 mmol/L (137-145)
[2023-06-13 15:09] LABS: Creatinine Urine Random 121.6 mg/dL; Protein (Total) Urine Random 10 mg/dL (0-12); Protein Creatinine Ratio Urine 0.08 GRAM/24H
[2023-06-13 15:20] LABS: Estradiol, Total 23.6 pg/mL
== END ==
PROVIDERS: Family Provider Family Medicine; PCP Family Medicine; Referring Provider Student in an Organized Health Care Education/Training Program; Visit Provider Student in an Organized Health Care Education/Training Program
DX: N05.9 Unspecified nephritic syndrome with unspecified morphologic changes (principal); D64.9 Anemia, unspecified; R80.9 Proteinuria, unspecified; R79.89 Other specified abnormal findings of blood chemistry; E78.5 Hyperlipidemia, unspecified
CPT/HCPCS: 80048; 82570; 82670; 84156; 84402; 84403; 85014; 85018

== ENCOUNTER → 2023-07-21 15:47 | Outpatient (CLI) | payer MEDICARE, OTHER, SELFPAY ==
--- NOTE | 2023-07-21 15:50 | DI.US.S_ITS ---
PROCEDURE: US RENAL COMPLETE INDICATIONS: Chronic kidney disease, stage 3a Cyst of kidney TECHNIQUE: Real-time scanning was performed of the kidneys and bladder, with image documentation. COMPARISON: [facility], , RENAL COMPLETE, 08/03/2019, 9:29. FINDINGS: Kidneys: Kidneys are normal in size. Right kidney measures 10.2 cm long; left kidney measures 12.2 cm long. Right renal cortical thickness is 1.3 cm; left renal cortical thickness is 1.7 cm. Renal cortical echotexture is normal. No hydronephrosis or nephrolithiasis. No suspicious solid mass lesions. Right renal cyst measuring 3.0 x 1.9 x 2.2 centimeters with thin internal septations, previously measuring 2.2 x 1.4 x 1.5 centimeters. Internal septations are new compared to prior. Left renal simple cyst measuring 2.6 centimeters, previously 1.9 centimeters. New right renal simple cyst measuring 1.4 centimeters peer Bladder: Pre-void bladder volume is 224 mL. Post-void residual is 0 mL. Pre-void images demonstrate no intraluminal masses or stones. On pre-void images, bilateral ureteral jets are noted with color Doppler interrogation. (Of note, ureteral jets may not be detectable in up to 25% of cases due to insufficient differences in specific gravity between ureteral and bladder urine). Miscellaneous: No free pelvic fluid. IMPRESSION: 1. Increased size of right renal cyst measuring up to 3.0 centimeters with new thin internal septations, previously 2.2 centimeters. Recommend 6-12 month follow-up ultrasound. 2. New simple cyst in the right kidney measuring 1.4 centimeters. 3. Increased size of simple cyst in the left kidney. 4. Kidneys and bladder are otherwise normal in appearance. Dictated by: Sid Falk M.D. on 07/21/2023 at 16:50 Approved by: Sid Falk M.D. on 07/21/2023 at 16:53
== END ==
PROVIDERS: Family Provider Family Medicine; PCP Family Medicine; Referring Provider Student in an Organized Health Care Education/Training Program; Visit Provider Student in an Organized Health Care Education/Training Program
DX: N18.31 Chronic kidney disease, stage 3a (principal); N28.1 Cyst of kidney, acquired
CPT/HCPCS: 76770

== ENCOUNTER → 2023-08-28 15:32 | Outpatient (CLI) | payer MEDICARE, OTHER, SELFPAY | PROVIDERS: Family Provider Family Medicine; PCP Family Medicine; Referring Provider Family Medicine; Visit Provider Family Medicine | DX: E78.5 Hyperlipidemia, unspecified (principal); R79.89 Other specified abnormal findings of blood chemistry | CPT/HCPCS: 36415; 84402; 84403 ==

== ENCOUNTER → 2023-08-29 10:40 | Outpatient (CLI) | payer MEDICARE, OTHER, SELFPAY ==
[2023-08-29 12:06] LABS: Add Manual Diff / Slide Review NO; Basophils Absolute Auto 0 /uL (0-100); Basophils Percent Auto 0.5 % (0-2); Eosinophils Absolute Auto 100 /uL (0-450); Eosinophils Percent Auto 1.8 % (2-4); Hemoglobin 16.7 g/dL (13.5-17.5); Lymphocytes Absolute Auto 1700 /uL (1100-4500); Lymphocytes Percent Auto 28.8 % (25-40); Mean Corpuscular HGB Conc 33.4 % (30-36); Mean Corpuscular Hemoglobin 28.2 PG (26-34); Mean Corpuscular Volume 84.5 fL (80-100); Monocytes Absolute Auto 500 /uL (0-900); Neutrophils Absolute Auto 3500 /uL (1500-7000); Neutrophils Percent Auto 59.9 % (50-75); Platelet Count 177 X10^3/uL (150-400); Red Blood Cell Count 5.92 X10^6/uL (4.5-5.9); Red Cell Distribution Width 18.6 % (11.6-14.8); White Blood Cell Count 5.8 X10^3/uL (4.5-11.0)
[2023-08-29 12:45] LABS: Cholesterol 197 mg/dL (140-199); HDL Cholesterol 45 mg/dL (40-60); LDL Cholesterol Calculated 128 mg/dL (<100); Triglycerides 119 mg/dL (35-150)
[2023-08-29 12:48] LABS: Alanine Aminotransferase 18 IU/L (<50); Albumin 4.5 g/dL (3.5-5.0); Albumin Globulin Ratio 1.7 (1.0-2.8); Alkaline Phosphatase 54 U/L (38-126); Aspartate Aminotransferase 23 IU/L (17-59); BUN Creatinine Ratio 15.1 (6-22); Bilirubin Total 0.8 mg/dL (0.2-1.3); Blood Urea Nitrogen 21 mg/dL (9-20); Calcium 9.1 mg/dL (8.4-10.2); Carbon Dioxide 31 mmol/L (22-32); Chloride 102 mmol/L (98-107); Estimated Glomerular Filt Rate 53 mL/min (>60); Globulin 2.6 g/dL (1.7-4.1); Glucose 91 mg/dL (80-110); HEMOLYSIS < 15 (0-50); Potassium 4.6 mmol/L (3.4-5.1); Sodium 138 mmol/L (137-145); Total Protein 7.1 g/dL (6.3-8.2); Uric Acid 8.2 mg/dL (3.5-8.5)
[2023-08-29 17:15] LABS: Estradiol, Total 24.1 pg/mL
[2023-08-30 03:39] LABS: Apolipoprotein B 108 mg/dL (<90)
== END ==
PROVIDERS: Family Provider Family Medicine; PCP Family Medicine; Referring Provider Specialist/Technologist Athletic Trainer; Visit Provider Specialist/Technologist Athletic Trainer
DX: M1A.09X0 Idiopathic chronic gout, multiple sites, without tophus (tophi) (principal); R79.89 Other specified abnormal findings of blood chemistry; Z12.5 Encounter for screening for malignant neoplasm of prostate; E78.5 Hyperlipidemia, unspecified
CPT/HCPCS: 36415; 80053; 80061; 82172; 82670; 84550; 85025; G0103

== ENCOUNTER → 2023-09-10 14:33 | Outpatient (CLI) | payer MEDICARE, OTHER, SELFPAY ==
[2023-09-10 15:44] LABS: Hematocrit 49.5 % (41-53); Hemoglobin 16.5 g/dL (13.5-17.5)
[2023-09-10 15:48] LABS: Appearance Urine UA CLEAR; Bilirubin Urine UA NEGATIVE (NEGATIVE); Color Urine UA YELLOW; Glucose Urine UA NEGATIVE (Negative); Ketones Urine UA NEGATIVE (NEGATIVE); Leukocyte Esterase Urine UA NEGATIVE (NEGATIVE); Nitrite Urine UA NEGATIVE (Negative); Occult Blood Urine UA 1+ (Negative); Protein Urine UA NEGATIVE (Negative); Urobilinogen Urine UA 0.2 E.U./dL (0.2)
[2023-09-10 15:58] LABS: BUN Creatinine Ratio 17.3 (6-22); Blood Urea Nitrogen 26 mg/dL (9-20); Calcium 8.8 mg/dL (8.4-10.2); Carbon Dioxide 27 mmol/L (22-32); Chloride 103 mmol/L (98-107); Estimated Glomerular Filt Rate 49 mL/min (>60); Glucose 87 mg/dL (80-110); HEMOLYSIS < 15 (0-50); Phosphorous 3.5 mg/dL (2.3-3.7); Potassium 4.4 mmol/L (3.4-5.1); Sodium 139 mmol/L (137-145)
[2023-09-10 16:05] LABS: Bacteria Urine None Seen; Culture Indicated Urine Cult Not Indicated; RBC Urine 0-1/HPF (0-5/HPF); Squamous Epithelial Cell Urine None Seen (0-5/HPF); Urine Volume 10mL (spun); WBC Urine 0-1/HPF (0-5/HPF)
[2023-09-10 17:10] LABS: Creatinine Urine Random 96.85 mg/dL; Protein (Total) Urine Random 8 mg/dL (0-12); Protein Creatinine Ratio Urine 0.08 GRAM/24H
[2023-09-11 11:14] LABS: Parathyroid Hormone Int 34 pg/mL (15-65)
== END ==
LOC: LAB 14:35
PROVIDERS: Family Provider Family Medicine; PCP Family Medicine; Referring Provider Student in an Organized Health Care Education/Training Program; Visit Provider Student in an Organized Health Care Education/Training Program
DX: N05.9 Unspecified nephritic syndrome with unspecified morphologic changes (principal); D70.9 Neutropenia, unspecified; D63.1 Anemia in chronic kidney disease; N25.81 Secondary hyperparathyroidism of renal origin; N30.00 Acute cystitis without hematuria; R80.9 Proteinuria, unspecified; E83.30 Disorder of phosphorus metabolism, unspecified
CPT/HCPCS: 36415; 80048; 81001; 82570; 83970; 84100; 84156; 85014; 85018

== ENCOUNTER → 2023-10-08 11:07 | Outpatient (CLI) | payer MEDICARE, OTHER, SELFPAY ==
[2023-10-08 11:51] LABS: Add Manual Diff / Slide Review NO; Basophils Absolute Auto 0 /uL (0-100); Basophils Percent Auto 0.5 % (0-2); Eosinophils Absolute Auto 100 /uL (0-450); Eosinophils Percent Auto 1.7 % (2-4); Hematocrit 50.7 % (41-53); Hemoglobin 17.1 g/dL (13.5-17.5); Lymphocytes Absolute Auto 1700 /uL (1100-4500); Lymphocytes Percent Auto 26.5 % (25-40); Mean Corpuscular HGB Conc 33.7 % (30-36); Mean Corpuscular Hemoglobin 28.9 PG (26-34); Mean Corpuscular Volume 85.7 fL (80-100); Monocytes Absolute Auto 500 /uL (0-900); Monocytes Percent Auto 7.8 % (3-14); Neutrophils Absolute Auto 4000 /uL (1500-7000); Neutrophils Percent Auto 63.5 % (50-75); Platelet Count 176 X10^3/uL (150-400); Red Blood Cell Count 5.92 X10^6/uL (4.5-5.9); Red Cell Distribution Width 18.8 % (11.6-14.8); White Blood Cell Count 6.3 X10^3/uL (4.5-11.0)
[2023-10-08 12:04] LABS: Erythrocyte Sedimentation Rate 1 MM/HR (0-15)
[2023-10-08 12:44] LABS: HEMOLYSIS < 15 (0-50); Iron 108 ug/dL (49-181)
[2023-10-08 12:45] LABS: Alanine Aminotransferase 24 IU/L (<50); Albumin 4.4 g/dL (3.5-5.0); Albumin Globulin Ratio 1.6 (1.0-2.8); Alkaline Phosphatase 49 U/L (38-126); Aspartate Aminotransferase 27 IU/L (17-59); BUN Creatinine Ratio 14.6 (6-22); Bilirubin Total 0.9 mg/dL (0.2-1.3); Blood Urea Nitrogen 21 mg/dL (9-20); C-Reactive Protein Quant < 0.5 mg/dL (<1.0); Carbon Dioxide 28 mmol/L (22-32); Chloride 101 mmol/L (98-107); Cholesterol 205 mg/dL (140-199); Estimated Glomerular Filt Rate 51 mL/min (>60); Globulin 2.8 g/dL (1.7-4.1); Glucose 97 mg/dL (80-110); HDL Cholesterol 35 mg/dL (40-60); HEMOLYSIS < 15 (0-50); LDL Cholesterol Calculated 152 mg/dL (<100); Potassium 4.3 mmol/L (3.4-5.1); Sodium 138 mmol/L (137-145); Total Protein 7.2 g/dL (6.3-8.2); Triglycerides 89 mg/dL (35-150); Uric Acid 4.8 mg/dL (3.5-8.5)
[2023-10-08 12:57] LABS: Percent Iron Saturation 27 % (20-50); Total Iron Binding Capacity 398 ug/dL (261-462); Transferrin 316 mg/dL (206-381)
[2023-10-08 13:12] LABS: Prostate Specific Antigen 2.83 ng/mL (0.10-4.00)
[2023-10-08 13:16] LABS: Ferritin 12 ng/mL (18-464)
[2023-10-08 13:50] LABS: Folate 8.2 ng/mL (2.76-20.0); Vitamin B12 451 pg/mL (239-931)
[2023-10-08 15:55] LABS: Vitamin D 25 Hydroxy (D3) 39.5 ng/mL (30.0-100.0)
[2023-10-08 16:11] LABS: Estradiol, Total 45.7 pg/mL
[2023-10-09 05:30] LABS: Apolipoprotein B 120 mg/dL (<90)
== END ==
PROVIDERS: Family Provider Family Medicine; PCP Family Medicine; Referring Provider Family Medicine; Visit Provider Family Medicine
DX: R25.1 Tremor, unspecified (principal); R79.89 Other specified abnormal findings of blood chemistry; K44.9 Diaphragmatic hernia without obstruction or gangrene; E78.5 Hyperlipidemia, unspecified; E78.2 Mixed hyperlipidemia; R14.0 Abdominal distension (gaseous); D50.0 Iron deficiency anemia secondary to blood loss (chronic)
CPT/HCPCS: 36415; 80053; 80061; 82172; 82306; 82607; 82670; 82728; 82746; 83540; 83550; 84153; 84402; 84403; 84550; 85025; 85651; 86140

== ENCOUNTER → 2023-11-07 12:20 | Outpatient (CLI) | payer MEDICARE, OTHER, SELFPAY ==
[2023-11-07 13:03] LABS: Add Manual Diff / Slide Review NO; Basophils Absolute Auto 0 /uL (0-100); Basophils Percent Auto 0.3 % (0-2); Eosinophils Absolute Auto 100 /uL (0-450); Eosinophils Percent Auto 1.1 % (2-4); Hematocrit 54.1 % (41-53); Hemoglobin 18.3 g/dL (13.5-17.5); Lymphocytes Absolute Auto 1800 /uL (1100-4500); Lymphocytes Percent Auto 29.3 % (25-40); Mean Corpuscular HGB Conc 33.9 % (30-36); Mean Corpuscular Hemoglobin 29.8 PG (26-34); Mean Corpuscular Volume 88.1 fL (80-100); Monocytes Absolute Auto 400 /uL (0-900); Neutrophils Absolute Auto 3800 /uL (1500-7000); Neutrophils Percent Auto 62.3 % (50-75); Platelet Count 192 X10^3/uL (150-400); Red Blood Cell Count 6.15 X10^6/uL (4.5-5.9); Red Cell Distribution Width 17.6 % (11.6-14.8); White Blood Cell Count 6.1 X10^3/uL (4.5-11.0)
[2023-11-07 13:17] LABS: HEMOLYSIS < 15 (0-50)
[2023-11-07 13:24] LABS: Alanine Aminotransferase 30 IU/L (<50); Albumin 4.8 g/dL (3.5-5.0); Albumin Globulin Ratio 1.5 (1.0-2.8); Alkaline Phosphatase 56 U/L (38-126); Aspartate Aminotransferase 28 IU/L (17-59); BUN Creatinine Ratio 15.8 (6-22); Bilirubin Total 0.9 mg/dL (0.2-1.3); Blood Urea Nitrogen 23 mg/dL (9-20); C-Reactive Protein Quant < 0.5 mg/dL (<1.0); Calcium 9.4 mg/dL (8.4-10.2); Carbon Dioxide 31 mmol/L (22-32); Chloride 101 mmol/L (98-107); Cholesterol 238 mg/dL (140-199); Estimated Glomerular Filt Rate 50 mL/min (>60); Globulin 3.1 g/dL (1.7-4.1); Glucose 99 mg/dL (80-110); HDL Cholesterol 45 mg/dL (40-60); HEMOLYSIS < 15 (0-50); LDL Cholesterol Calculated 171 mg/dL (<100); Potassium 4.7 mmol/L (3.4-5.1); Sodium 139 mmol/L (137-145); Total Protein 7.9 g/dL (6.3-8.2); Triglycerides 110 mg/dL (35-150); Uric Acid 5.2 mg/dL (3.5-8.5)
[2023-11-07 13:28] LABS: Iron 179 ug/dL (49-181)
[2023-11-07 13:41] LABS: Percent Iron Saturation 43 % (20-50); Total Iron Binding Capacity 417 ug/dL (261-462); Transferrin 339 mg/dL (206-381)
[2023-11-07 13:44] LABS: Erythrocyte Sedimentation Rate 1 MM/HR (0-15)
[2023-11-07 13:49] LABS: Prostate Specific Antigen 4.27 ng/mL (0.10-4.00)
[2023-11-07 13:53] LABS: Ferritin 14 ng/mL (18-464)
[2023-11-07 14:24] LABS: Folate 8.8 ng/mL (2.76-20.0); Vitamin B12 514 pg/mL (239-931)
[2023-11-07 14:53] LABS: Estradiol, Total 10.3 pg/mL
[2023-11-09 08:10] LABS: Apolipoprotein B 131 mg/dL (<90)
[2023-11-19 16:11] LABS: Testosterone Total 240.1 ng/dL (264.0-916.0)
== END ==
PROVIDERS: Family Provider Family Medicine; PCP Family Medicine; Referring Provider Family Medicine; Visit Provider Family Medicine
DX: R79.89 Other specified abnormal findings of blood chemistry (principal); E78.2 Mixed hyperlipidemia; R25.1 Tremor, unspecified; K44.9 Diaphragmatic hernia without obstruction or gangrene; D50.0 Iron deficiency anemia secondary to blood loss (chronic); R14.0 Abdominal distension (gaseous)
CPT/HCPCS: 36415; 80053; 80061; 82172; 82306; 82607; 82670; 82728; 82746; 83540; 83550; 84153; 84402; 84403; 84550; 85025; 85651; 86140

== ENCOUNTER → 2023-11-20 13:54 | Outpatient (CLI) | payer MEDICARE, OTHER, SELFPAY | PROVIDERS: Family Provider Family Medicine; PCP Family Medicine; Referring Provider Family Medicine; Visit Provider Family Medicine | DX: R79.89 Other specified abnormal findings of blood chemistry (principal); Z79.899 Other long term (current) drug therapy | CPT/HCPCS: 84402; 84403 ==

== ENCOUNTER → 2023-12-08 12:46 | Outpatient (CLI) | payer MEDICARE, OTHER, SELFPAY ==
[2023-12-08 13:34] LABS: Add Manual Diff / Slide Review NO; Basophils Absolute Auto 100 /uL (0-100); Eosinophils Absolute Auto 100 /uL (0-450); Eosinophils Percent Auto 1.6 % (2-4); Hematocrit 53.7 % (41-53); Hemoglobin 18.2 g/dL (13.5-17.5); Lymphocytes Absolute Auto 1400 /uL (1100-4500); Mean Corpuscular HGB Conc 33.9 % (30-36); Mean Corpuscular Hemoglobin 30.2 PG (26-34); Mean Corpuscular Volume 88.9 fL (80-100); Monocytes Absolute Auto 500 /uL (0-900); Monocytes Percent Auto 9.3 % (3-14); Neutrophils Absolute Auto 3300 /uL (1500-7000); Neutrophils Percent Auto 61.1 % (50-75); Platelet Count 160 X10^3/uL (150-400); Red Blood Cell Count 6.04 X10^6/uL (4.5-5.9); Red Cell Distribution Width 16.8 % (11.6-14.8); White Blood Cell Count 5.3 X10^3/uL (4.5-11.0)
[2023-12-08 13:53] LABS: HEMOLYSIS < 15 (0-50); Iron 165 ug/dL (49-181)
[2023-12-08 13:58] LABS: Alanine Aminotransferase 31 IU/L (<50); Albumin 4.8 g/dL (3.5-5.0); Albumin Globulin Ratio 1.5 (1.0-2.8); Alkaline Phosphatase 61 U/L (38-126); Aspartate Aminotransferase 31 IU/L (17-59); BUN Creatinine Ratio 17.4 (6-22); Bilirubin Total 0.9 mg/dL (0.2-1.3); Blood Urea Nitrogen 26 mg/dL (9-20); C-Reactive Protein Quant < 0.5 mg/dL (<1.0); Calcium 9.5 mg/dL (8.4-10.2); Carbon Dioxide 30 mmol/L (22-32); Chloride 101 mmol/L (98-107); Cholesterol 249 mg/dL (140-199); Estimated Glomerular Filt Rate 49 mL/min (>60); Globulin 3.1 g/dL (1.7-4.1); Glucose 95 mg/dL (80-110); HDL Cholesterol 48 mg/dL (40-60); HEMOLYSIS < 15 (0-50); LDL Cholesterol Calculated 177 mg/dL (<100); Potassium 4.6 mmol/L (3.4-5.1); Sodium 138 mmol/L (137-145); Total Protein 7.9 g/dL (6.3-8.2); Triglycerides 119 mg/dL (35-150); Uric Acid 6.2 mg/dL (3.5-8.5)
[2023-12-08 14:06] LABS: Percent Iron Saturation 41 % (20-50); Total Iron Binding Capacity 400 ug/dL (261-462); Transferrin 313 mg/dL (206-381)
[2023-12-08 14:15] LABS: Erythrocyte Sedimentation Rate 1 MM/HR (0-15)
[2023-12-08 14:27] LABS: Prostate Specific Antigen 2.97 ng/mL (0.10-4.00)
[2023-12-08 14:32] LABS: Ferritin 16 ng/mL (18-464)
[2023-12-08 15:01] LABS: Folate 8.4 ng/mL (2.76-20.0); Vitamin B12 489 pg/mL (239-931)
[2023-12-08 15:14] LABS: Vitamin D 25 Hydroxy (D3) 48.6 ng/mL (30.0-100.0)
[2023-12-08 15:30] LABS: Estradiol, Total 14.8 pg/mL
[2023-12-09 04:39] LABS: Apolipoprotein B 136 mg/dL (<90)
== END ==
PROVIDERS: Family Provider Family Medicine; PCP Family Medicine; Referring Provider Family Medicine; Visit Provider Family Medicine
DX: R79.89 Other specified abnormal findings of blood chemistry (principal); E78.2 Mixed hyperlipidemia; R25.1 Tremor, unspecified; K44.9 Diaphragmatic hernia without obstruction or gangrene; R14.0 Abdominal distension (gaseous); D50.0 Iron deficiency anemia secondary to blood loss (chronic); T46.6X5A Adverse effect of antihyperlipidemic and antiarteriosclerotic drugs, initial encounter
CPT/HCPCS: 36415; 80053; 80061; 82172; 82306; 82607; 82670; 82728; 82746; 83540; 83550; 84153; 84402; 84403; 84550; 85025; 85651; 86140

== ENCOUNTER → 2024-01-05 10:58 | Outpatient (CLI) | payer MEDICARE, OTHER, SELFPAY ==
[2024-01-05 12:19] LABS: Therapeutic Phleb Consent Chec Consent signed @ reg
[2024-01-05 12:20] LABS: 585 Gram Check PASS; Amount Collected in g 585 g; Amount Collected mL calc 508 mL; Patient Weight <110 lb NO; Postdiastolic BP 84 mmHg; Postsystolic BP 139 mmHg; Prediastolic 79 mmHg; Presystolic 133 mmHg; Pulse 63 bpm; Site of phlebotomy Right antecubital; Temperature 97.6; Therapeutic Phleb Start Time 1200; Therapeutic Phleb Stop Time 1220; Zero Check Sebra Scale PASS
[2024-01-05 13:56] LABS: Add Manual Diff / Slide Review NO; Basophils Absolute Auto 0 /uL (0-100); Basophils Percent Auto 0.3 % (0-2); Eosinophils Absolute Auto 100 /uL (0-450); Hematocrit 49.6 % (41-53); Hemoglobin 16.8 g/dL (13.5-17.5); Lymphocytes Absolute Auto 1300 /uL (1100-4500); Lymphocytes Percent Auto 22.3 % (25-40); Mean Corpuscular HGB Conc 33.9 % (30-36); Mean Corpuscular Hemoglobin 30.9 PG (26-34); Mean Corpuscular Volume 91.2 fL (80-100); Monocytes Absolute Auto 500 /uL (0-900); Neutrophils Absolute Auto 4000 /uL (1500-7000); Neutrophils Percent Auto 67.4 % (50-75); Platelet Count 180 X10^3/uL (150-400); Red Blood Cell Count 5.44 X10^6/uL (4.5-5.9); White Blood Cell Count 5.9 X10^3/uL (4.5-11.0)
[2024-01-05 14:17] LABS: HEMOLYSIS < 15 (0-50); Iron 104 ug/dL (49-181)
[2024-01-05 14:20] LABS: Alanine Aminotransferase 23 IU/L (<50); Albumin 4.4 g/dL (3.5-5.0); Albumin Globulin Ratio 1.7 (1.0-2.8); Alkaline Phosphatase 67 U/L (38-126); Aspartate Aminotransferase 28 IU/L (17-59); BUN Creatinine Ratio 20.6 (6-22); Bilirubin Total 0.9 mg/dL (0.2-1.3); Blood Urea Nitrogen 28 mg/dL (9-20); Calcium 9.4 mg/dL (8.4-10.2); Carbon Dioxide 28 mmol/L (22-32); Chloride 101 mmol/L (98-107); Cholesterol 118 mg/dL (140-199); Estimated Glomerular Filt Rate 55 mL/min (>60); Globulin 2.6 g/dL (1.7-4.1); Glucose 84 mg/dL (80-110); HDL Cholesterol 50 mg/dL (40-60); HEMOLYSIS < 15 (0-50); LDL Cholesterol Calculated 53 mg/dL (<100); Potassium 4.2 mmol/L (3.4-5.1); Sodium 138 mmol/L (137-145); Triglycerides 75 mg/dL (35-150)
[2024-01-05 14:28] LABS: Percent Iron Saturation 33 % (20-50); Total Iron Binding Capacity 319 ug/dL (261-462); Transferrin 274 mg/dL (206-381)
[2024-01-05 14:51] LABS: Estradiol, Total 43.4 pg/mL
[2024-01-05 14:55] LABS: Ferritin 25 ng/mL (18-464)
[2024-01-05 15:10] LABS: Vitamin B12 415 pg/mL (239-931)
[2024-01-05 15:28] LABS: Folate 8.7 ng/mL (2.76-20.0)
[2024-01-07 04:14] LABS: Apolipoprotein B 58 mg/dL (<90)
[2024-01-13 11:10] LABS: Percent Free Testosterone 4.23 % (1.50-4.20); Testosterone Free 29.19 ng/dL (5.00-21.00)
== END ==
PROVIDERS: Family Provider Family Medicine; PCP Family Medicine; Referring Provider Family Medicine; Visit Provider Family Medicine
DX: R79.89 Other specified abnormal findings of blood chemistry (principal); E78.5 Hyperlipidemia, unspecified; Z78.9 Other specified health status; D64.9 Anemia, unspecified; D75.1 Secondary polycythemia; R71.8 Other abnormality of red blood cells; D58.2 Other hemoglobinopathies
CPT/HCPCS: 36415; 80053; 80061; 82172; 82306; 82607; 82670; 82728; 82746; 83540; 83550; 84402; 84403; 85025; 99195

== ENCOUNTER → 2024-01-14 13:56 | Outpatient (CLI) | payer MEDICARE, OTHER, SELFPAY ==
[2024-01-14 15:03] LABS: Add Manual Diff / Slide Review NO; Basophils Absolute Auto 0 /uL (0-100); Basophils Percent Auto 0.6 % (0-2); Eosinophils Absolute Auto 200 /uL (0-450); Hematocrit 50.3 % (41-53); Hemoglobin 16.8 g/dL (13.5-17.5); Lymphocytes Absolute Auto 2300 /uL (1100-4500); Lymphocytes Percent Auto 33.7 % (25-40); Mean Corpuscular HGB Conc 33.4 % (30-36); Mean Corpuscular Hemoglobin 30.6 PG (26-34); Mean Corpuscular Volume 91.7 fL (80-100); Monocytes Absolute Auto 600 /uL (0-900); Monocytes Percent Auto 8.3 % (3-14); Neutrophils Absolute Auto 3800 /uL (1500-7000); Neutrophils Percent Auto 54.4 % (50-75); Platelet Count 229 X10^3/uL (150-400); Red Blood Cell Count 5.48 X10^6/uL (4.5-5.9); Red Cell Distribution Width 15.7 % (11.6-14.8); White Blood Cell Count 6.9 X10^3/uL (4.5-11.0)
[2024-01-14 15:28] LABS: Alanine Aminotransferase 70 IU/L (<50); Albumin 4.6 g/dL (3.5-5.0); Albumin Globulin Ratio 1.7 (1.0-2.8); Alkaline Phosphatase 64 U/L (38-126); Aspartate Aminotransferase 55 IU/L (17-59); BUN Creatinine Ratio 21.4 (6-22); Bilirubin Total 0.5 mg/dL (0.2-1.3); Blood Urea Nitrogen 28 mg/dL (9-20); Calcium 9.1 mg/dL (8.4-10.2); Carbon Dioxide 28 mmol/L (22-32); Chloride 103 mmol/L (98-107); Estimated Glomerular Filt Rate 57 mL/min (>60); Globulin 2.7 g/dL (1.7-4.1); Glucose 89 mg/dL (80-110); HEMOLYSIS 24 (0-50); Potassium 4.7 mmol/L (3.4-5.1); Sodium 138 mmol/L (137-145); Total Protein 7.3 g/dL (6.3-8.2); Uric Acid 4.7 mg/dL (3.5-8.5)
== END ==
PROVIDERS: Family Provider Family Medicine; PCP Family Medicine; Referring Provider Specialist/Technologist Athletic Trainer; Visit Provider Specialist/Technologist Athletic Trainer
DX: M1A.09X0 Idiopathic chronic gout, multiple sites, without tophus (tophi) (principal)
CPT/HCPCS: 36415; 80053; 84550; 85025

== ENCOUNTER → 2024-01-16 18:28 | Outpatient (CLI) | payer MEDICARE, OTHER, SELFPAY ==
--- NOTE | 2024-01-16 18:32 | DI.MRI.S_ITS ---
PROCEDURE: MR ANKLE LT WO CON INDICATIONS: left ankle injury TECHNIQUE: Noncontrast sagittal T1 spin echo and T2 fast spin echo with fat saturation, axial proton density fast spin echo and T2 fast spin echo with fat saturation, coronal T1 spin echo and T2 fast spin echo with fat saturation through the ankle/hindfoot. COMPARISON: None. FINDINGS: Image quality: Excellent Tendons: Mild tenosynovitis of the posterior tibialis. The flexor digitorum longus, and the flexor hallucis longus are unremarkable. The extensor tendons, and the peroneal tendons are unremarkable. Mild tendinosis of the distal Achilles tendon, without tear. Ligaments: The anterior and the posterior tibiofibular ligament are intact. Partial-thickness tear of the anterior talofibular ligament at the fibular insertion. The posterior talofibular ligament is intact. The calcaneofibular ligament is intact. The deep portion deltoid ligament is unremarkable. Sinus tarsi: No fibrosis Plantar fascia: Unremarkable Muscles: Normal in signal Bones: 5 mm osteochondral lesion in the medial talus dome, with subchondral marrow edema. Mild degenerative changes of the medial cuneiform and navicular articulation, with mild subchondral cystic changes in the proximal medial cuneiform. Small tibiotalar and small posterior subtalar effusion. IMPRESSION: 1. Mild tenosynovitis of the posterior tibialis. 2. Mild tendinosis of the distal Achilles tendon, without tear. 3. Partial thickness tear of the anterior talofibular ligament. 4. 5 mm osteochondral lesion in the medial talus dome. Dictated by: Vickie Peter M.D. on 01/19/2024 at 10:14 Approved by: Vickie Peter M.D. on 01/19/2024 at 10:22
== END ==
PROVIDERS: Family Provider Family Medicine; PCP Family Medicine; Referring Provider Family Medicine; Visit Provider Family Medicine
DX: M25.572 Pain in left ankle and joints of left foot (principal); M65.972 Unspecified synovitis and tenosynovitis, left ankle and foot; S93.492A Sprain of other ligament of left ankle, initial encounter; M25.472 Effusion, left ankle; M89.9 Disorder of bone, unspecified
CPT/HCPCS: 73721

== ENCOUNTER → 2024-02-14 09:45 | Outpatient (CLI) | payer MEDICARE, OTHER, SELFPAY ==
[2024-02-14 10:09] LABS: Add Manual Diff / Slide Review NO; Basophils Absolute Auto 0 /uL (0-100); Basophils Percent Auto 0.8 % (0-2); Eosinophils Absolute Auto 300 /uL (0-450); Eosinophils Percent Auto 4.9 % (2-4); Hematocrit 47.2 % (41-53); Hemoglobin 15.7 g/dL (13.5-17.5); Lymphocytes Absolute Auto 1900 /uL (1100-4500); Lymphocytes Percent Auto 30.7 % (25-40); Mean Corpuscular HGB Conc 33.3 % (30-36); Mean Corpuscular Hemoglobin 30.1 PG (26-34); Mean Corpuscular Volume 90.4 fL (80-100); Monocytes Absolute Auto 500 /uL (0-900); Monocytes Percent Auto 8.9 % (3-14); Neutrophils Absolute Auto 3300 /uL (1500-7000); Neutrophils Percent Auto 54.7 % (50-75); Platelet Count 194 X10^3/uL (150-400); Red Blood Cell Count 5.22 X10^6/uL (4.5-5.9); Red Cell Distribution Width 14.9 % (11.6-14.8); White Blood Cell Count 6.1 X10^3/uL (4.5-11.0)
[2024-02-14 10:22] LABS: Alanine Aminotransferase 25 IU/L (<50); Albumin 4.5 g/dL (3.5-5.0); Albumin Globulin Ratio 1.8 (1.0-2.8); Alkaline Phosphatase 57 U/L (38-126); Aspartate Aminotransferase 27 IU/L (17-59); BUN Creatinine Ratio 18.1 (6-22); Bilirubin Total 0.6 mg/dL (0.2-1.3); Blood Urea Nitrogen 26 mg/dL (9-20); Calcium 9.4 mg/dL (8.4-10.2); Carbon Dioxide 29 mmol/L (22-32); Chloride 102 mmol/L (98-107); Cholesterol 120 mg/dL (140-199); Estimated Glomerular Filt Rate 51 mL/min (>60); Globulin 2.5 g/dL (1.7-4.1); Glucose 99 mg/dL (80-110); HDL Cholesterol 49 mg/dL (40-60); HEMOLYSIS < 15 (0-50); Iron 93 ug/dL (49-181); LDL Cholesterol Calculated 51 mg/dL (<100); Potassium 4.1 mmol/L (3.4-5.1); Sodium 137 mmol/L (137-145); Triglycerides 99 mg/dL (35-150); Uric Acid 4.9 mg/dL (3.5-8.5)
[2024-02-14 10:34] LABS: Percent Iron Saturation 26 % (20-50); Total Iron Binding Capacity 363 ug/dL (261-462); Transferrin 320 mg/dL (206-381)
[2024-02-14 10:40] LABS: Vitamin D 25 Hydroxy (D3) 54.5 ng/mL (30.0-100.0)
[2024-02-14 10:56] LABS: Estradiol, Total 14.2 pg/mL
[2024-02-14 10:57] LABS: Ferritin 16 ng/mL (18-464)
[2024-02-14 11:29] LABS: Folate 8.9 ng/mL (2.76-20.0); Vitamin B12 454 pg/mL (239-931)
[2024-02-15 08:09] LABS: Apolipoprotein B 62 mg/dL (<90)
== END ==
LOC: LAB 09:46
PROVIDERS: Family Provider Family Medicine; PCP Family Medicine; Referring Provider Family Medicine; Visit Provider Family Medicine
DX: R79.89 Other specified abnormal findings of blood chemistry (principal); Z78.9 Other specified health status; E78.5 Hyperlipidemia, unspecified; D64.9 Anemia, unspecified; D75.1 Secondary polycythemia; E79.0 Hyperuricemia without signs of inflammatory arthritis and tophaceous disease
CPT/HCPCS: 36415; 80053; 80061; 82172; 82306; 82607; 82670; 82728; 82746; 83540; 83550; 84402; 84403; 84550; 85025

== ENCOUNTER → 2024-03-16 10:18 | Outpatient (CLI) | payer MEDICARE, OTHER, SELFPAY ==
[2024-03-16 10:59] LABS: Add Manual Diff / Slide Review NO; Basophils Absolute Auto 100 /uL (0-100); Eosinophils Absolute Auto 100 /uL (0-450); Eosinophils Percent Auto 1.8 % (2-4); Hematocrit 48.2 % (41-53); Lymphocytes Absolute Auto 1600 /uL (1100-4500); Lymphocytes Percent Auto 28.3 % (25-40); Mean Corpuscular HGB Conc 33.2 % (30-36); Mean Corpuscular Hemoglobin 29.4 PG (26-34); Mean Corpuscular Volume 88.5 fL (80-100); Monocytes Absolute Auto 500 /uL (0-900); Monocytes Percent Auto 9.1 % (3-14); Neutrophils Absolute Auto 3400 /uL (1500-7000); Neutrophils Percent Auto 59.8 % (50-75); Platelet Count 215 X10^3/uL (150-400); Red Blood Cell Count 5.44 X10^6/uL (4.5-5.9); Red Cell Distribution Width 14.5 % (11.6-14.8); White Blood Cell Count 5.7 X10^3/uL (4.5-11.0)
[2024-03-16 11:21] LABS: HEMOLYSIS < 15 (0-50); Iron 83 ug/dL (49-181)
[2024-03-16 11:25] LABS: Alanine Aminotransferase 35 IU/L (<50); Albumin 4.8 g/dL (3.5-5.0); Albumin Globulin Ratio 1.7 (1.0-2.8); Alkaline Phosphatase 66 U/L (38-126); Aspartate Aminotransferase 30 IU/L (17-59); BUN Creatinine Ratio 16.3 (6-22); Bilirubin Total 0.6 mg/dL (0.2-1.3); Blood Urea Nitrogen 25 mg/dL (9-20); Calcium 9.6 mg/dL (8.4-10.2); Carbon Dioxide 29 mmol/L (22-32); Chloride 101 mmol/L (98-107); Cholesterol 138 mg/dL (140-199); Estimated Glomerular Filt Rate 47 mL/min (>60); Globulin 2.8 g/dL (1.7-4.1); Glucose 95 mg/dL (80-110); HDL Cholesterol 58 mg/dL (40-60); HEMOLYSIS < 15 (0-50); LDL Cholesterol Calculated 57 mg/dL (<100); Potassium 4.6 mmol/L (3.4-5.1); Sodium 139 mmol/L (137-145); Total Protein 7.6 g/dL (6.3-8.2); Triglycerides 115 mg/dL (35-150)
[2024-03-16 11:34] LABS: Percent Iron Saturation 22 % (20-50); Total Iron Binding Capacity 383 ug/dL (261-462); Transferrin 353 mg/dL (206-381)
[2024-03-16 11:36] LABS: Vitamin D 25 Hydroxy (D3) 38.1 ng/mL (30.0-100.0)
[2024-03-16 11:54] LABS: Prostate Specific Antigen 2.19 ng/mL (0.10-4.00)
[2024-03-16 11:58] LABS: Ferritin 9 ng/mL (18-464)
[2024-03-16 12:27] LABS: Folate 6.1 ng/mL (2.76-20.0); Vitamin B12 597 pg/mL (239-931)
[2024-03-17 03:40] LABS: Apolipoprotein B 59 mg/dL (<90)
== END ==
LOC: LAB 10:19
PROVIDERS: Family Provider Family Medicine; PCP Family Medicine; Referring Provider Family Medicine; Visit Provider Family Medicine
DX: R79.89 Other specified abnormal findings of blood chemistry (principal); Z78.9 Other specified health status; E78.5 Hyperlipidemia, unspecified; D64.9 Anemia, unspecified; D75.1 Secondary polycythemia; E79.0 Hyperuricemia without signs of inflammatory arthritis and tophaceous disease
CPT/HCPCS: 36415; 80053; 80061; 82172; 82306; 82607; 82670; 82728; 82746; 83540; 83550; 84153; 84402; 84403; 84550; 85025

== ENCOUNTER → 2024-04-16 12:36 | Outpatient (CLI) | payer MEDICARE, OTHER, SELFPAY ==
[2024-04-16 13:04] LABS: Add Manual Diff / Slide Review NO; Basophils Absolute Auto 0 /uL (0-100); Basophils Percent Auto 0.5 % (0-2); Eosinophils Absolute Auto 100 /uL (0-450); Eosinophils Percent Auto 1.4 % (2-4); Hematocrit 47.8 % (41-53); Hemoglobin 15.9 g/dL (13.5-17.5); Lymphocytes Absolute Auto 1800 /uL (1100-4500); Lymphocytes Percent Auto 30.7 % (25-40); Mean Corpuscular HGB Conc 33.2 % (30-36); Mean Corpuscular Hemoglobin 28.5 PG (26-34); Monocytes Absolute Auto 500 /uL (0-900); Neutrophils Absolute Auto 3400 /uL (1500-7000); Neutrophils Percent Auto 58.4 % (50-75); Platelet Count 196 X10^3/uL (150-400); Red Blood Cell Count 5.56 X10^6/uL (4.5-5.9); Red Cell Distribution Width 14.9 % (11.6-14.8); White Blood Cell Count 5.8 X10^3/uL (4.5-11.0)
[2024-04-16 13:19] LABS: HEMOLYSIS < 15 (0-50); Iron 133 ug/dL (49-181)
[2024-04-16 13:21] LABS: Alanine Aminotransferase 57 IU/L (<50); Albumin 4.7 g/dL (3.5-5.0); Albumin Globulin Ratio 1.7 (1.0-2.8); Alkaline Phosphatase 73 U/L (38-126); Aspartate Aminotransferase 45 IU/L (17-59); BUN Creatinine Ratio 20.3 (6-22); Bilirubin Total 0.7 mg/dL (0.2-1.3); Blood Urea Nitrogen 27 mg/dL (9-20); Carbon Dioxide 27 mmol/L (22-32); Chloride 102 mmol/L (98-107); Cholesterol 137 mg/dL (140-199); Estimated Glomerular Filt Rate 56 mL/min (>60); Globulin 2.7 g/dL (1.7-4.1); Glucose 90 mg/dL (80-110); HDL Cholesterol 52 mg/dL (40-60); HEMOLYSIS < 15 (0-50); LDL Cholesterol Calculated 55 mg/dL (<100); Potassium 4.1 mmol/L (3.4-5.1); Sodium 138 mmol/L (137-145); Total Protein 7.4 g/dL (6.3-8.2); Triglycerides 148 mg/dL (35-150); Uric Acid 6.3 mg/dL (3.5-8.5)
[2024-04-16 13:30] LABS: Percent Iron Saturation 35 % (20-50); Total Iron Binding Capacity 382 ug/dL (261-462); Transferrin 346 mg/dL (206-381)
[2024-04-16 13:54] LABS: Ferritin 12 ng/mL (18-464)
[2024-04-16 14:26] LABS: Vitamin B12 645 pg/mL (239-931)
[2024-04-16 14:44] LABS: Vitamin D 25 Hydroxy (D3) 38.9 ng/mL (30.0-100.0)
[2024-04-16 15:00] LABS: Estradiol, Total 30.8 pg/mL
[2024-04-17 04:09] LABS: Apolipoprotein B 60 mg/dL (<90)
== END ==
LOC: LAB 12:37
PROVIDERS: Family Provider Family Medicine; PCP Family Medicine; Referring Provider Family Medicine; Visit Provider Family Medicine
DX: R79.89 Other specified abnormal findings of blood chemistry (principal); Z78.9 Other specified health status; E78.5 Hyperlipidemia, unspecified; D64.9 Anemia, unspecified; D75.1 Secondary polycythemia; E79.0 Hyperuricemia without signs of inflammatory arthritis and tophaceous disease
CPT/HCPCS: 36415; 80053; 80061; 82172; 82306; 82607; 82670; 82728; 82746; 83540; 83550; 84402; 84403; 84550; 85025

== ENCOUNTER → 2024-04-26 10:59 | Outpatient (CLI) | payer MEDICARE, OTHER, SELFPAY ==
[2024-04-26 12:05] LABS: Hematocrit 49.3 % (41-53); Hemoglobin 16.4 g/dL (13.5-17.5)
[2024-04-26 12:06] LABS: Creatinine Urine Random 167.85 mg/dL; Protein (Total) Urine Random 8 mg/dL (0-12); Protein Creatinine Ratio Urine 0.04 GRAM/24H
[2024-04-26 12:20] LABS: BUN Creatinine Ratio 20.7 (6-22); Blood Urea Nitrogen 29 mg/dL (9-20); Calcium 9.6 mg/dL (8.4-10.2); Carbon Dioxide 27 mmol/L (22-32); Chloride 101 mmol/L (98-107); Estimated Glomerular Filt Rate 53 mL/min (>60); Glucose 75 mg/dL (80-110); HEMOLYSIS < 15 (0-50); Potassium 4.3 mmol/L (3.4-5.1); Sodium 139 mmol/L (137-145)
[2024-04-28 07:09] LABS: Parathyroid Hormone Int 26 pg/mL (15-65)
== END ==
PROVIDERS: Family Provider Family Medicine; PCP Family Medicine; Referring Provider Student in an Organized Health Care Education/Training Program; Visit Provider Student in an Organized Health Care Education/Training Program
DX: N05.9 Unspecified nephritic syndrome with unspecified morphologic changes (principal); D70.9 Neutropenia, unspecified; D63.1 Anemia in chronic kidney disease; R80.9 Proteinuria, unspecified; N25.81 Secondary hyperparathyroidism of renal origin
CPT/HCPCS: 36415; 80048; 82570; 83970; 84156; 85014; 85018

== ENCOUNTER → 2024-05-18 10:50 | Outpatient (CLI) | payer MEDICARE, OTHER, SELFPAY ==
[2024-05-18 11:13] LABS: Add Manual Diff / Slide Review NO; Basophils Absolute Auto 0 /uL (0-100); Basophils Percent Auto 0.6 % (0-2); Eosinophils Absolute Auto 100 /uL (0-450); Eosinophils Percent Auto 2.1 % (2-4); Hematocrit 48.9 % (41-53); Hemoglobin 16.2 g/dL (13.5-17.5); Lymphocytes Absolute Auto 1700 /uL (1100-4500); Lymphocytes Percent Auto 29.3 % (25-40); Mean Corpuscular HGB Conc 33.1 % (30-36); Mean Corpuscular Hemoglobin 28.3 PG (26-34); Mean Corpuscular Volume 85.3 fL (80-100); Monocytes Absolute Auto 500 /uL (0-900); Monocytes Percent Auto 8.6 % (3-14); Neutrophils Absolute Auto 3500 /uL (1500-7000); Neutrophils Percent Auto 59.4 % (50-75); Platelet Count 188 X10^3/uL (150-400); Red Blood Cell Count 5.73 X10^6/uL (4.5-5.9); Red Cell Distribution Width 16.2 % (11.6-14.8); White Blood Cell Count 5.8 X10^3/uL (4.5-11.0)
[2024-05-18 11:38] LABS: Alanine Aminotransferase 33 IU/L (<50); Albumin 4.6 g/dL (3.5-5.0); Albumin Globulin Ratio 1.6 (1.0-2.8); Alkaline Phosphatase 63 U/L (38-126); Aspartate Aminotransferase 33 IU/L (17-59); Bilirubin Total 0.8 mg/dL (0.2-1.3); Blood Urea Nitrogen 29 mg/dL (9-20); Calcium 9.2 mg/dL (8.4-10.2); Carbon Dioxide 28 mmol/L (22-32); Chloride 101 mmol/L (98-107); Cholesterol 136 mg/dL (140-199); Estimated Glomerular Filt Rate 54 mL/min (>60); Globulin 2.9 g/dL (1.7-4.1); Glucose 104 mg/dL (80-110); HDL Cholesterol 50 mg/dL (40-60); HEMOLYSIS < 15 (0-50); LDL Cholesterol Calculated 63 mg/dL (<100); Potassium 4.4 mmol/L (3.4-5.1); Sodium 138 mmol/L (137-145); Total Protein 7.5 g/dL (6.3-8.2); Triglycerides 115 mg/dL (35-150); Uric Acid 6.3 mg/dL (3.5-8.5)
[2024-05-18 11:44] LABS: HEMOLYSIS < 15 (0-50); Iron 92 ug/dL (49-181)
[2024-05-18 11:56] LABS: Percent Iron Saturation 22 % (20-50); Total Iron Binding Capacity 411 ug/dL (261-462); Transferrin 342 mg/dL (206-381); Vitamin D 25 Hydroxy (D3) 39.8 ng/mL (30.0-100.0)
[2024-05-18 12:10] LABS: Estradiol, Total 26.1 pg/mL
[2024-05-18 12:13] LABS: Ferritin 11 ng/mL (18-464)
[2024-05-18 12:58] LABS: Folate 7.8 ng/mL (2.76-20.0); Vitamin B12 555 pg/mL (239-931)
[2024-05-19 03:39] LABS: Apolipoprotein B 58 mg/dL (<90)
[2024-05-28 12:12] LABS: Percent Free Testosterone 3.98 % (1.50-4.20); Testosterone Free 15.49 ng/dL (5.00-21.00); Testosterone Total 389.2 ng/dL (264.0-916.0)
== END ==
PROVIDERS: Family Provider Family Medicine; PCP Family Medicine; Referring Provider Family Medicine; Visit Provider Family Medicine
DX: E78.5 Hyperlipidemia, unspecified (principal); R79.89 Other specified abnormal findings of blood chemistry; Z78.9 Other specified health status; D64.9 Anemia, unspecified; D75.1 Secondary polycythemia; E79.0 Hyperuricemia without signs of inflammatory arthritis and tophaceous disease
CPT/HCPCS: 36415; 80053; 80061; 82172; 82306; 82607; 82670; 82728; 82746; 83540; 83550; 84402; 84403; 84550; 85025

== ENCOUNTER → 2024-06-09 13:11 | Outpatient (RCR) | payer MEDICARE, OTHER, SELFPAY ==
--- NOTE | 2023-03-03 16:00 | PT.OIE ---
Current Diagnoses Lateral epicondylitis, unspecified elbow (03/03/23) Past Medical History (Last Reviewed 05/28/22 @ 08:51 by Andrew Shea RN) BCC (basal cell carcinoma) Bowel obstruction Enlarged prostate External hemorrhoid Gout Hemorrhoids that prolapse with straining and require manual replacement back inside anal canal Hyperlipidemia Kidney stones Low T4 Pneumonia Vascular insufficiency of extremity Past Surgical History (Last Reviewed 05/28/22 @ 08:51 by Andrew Shea RN) History of surgery (03/24/18) History of toe surgery (03/12/17) History of vascular surgery Hx of foot surgery (02/27/18) Hx of toe surgery (08/27/19) Post-operative state Visit Care Team Role Provider Type Jaleel Santos MD Family Provider Physician Primary Care Provider Specialty: Family Practice Address: [address] [place] [address] Email: [email or web address] Lucila Gerber DO Attending Provider Physician Referring Provider Specialty: Medical Address: [address] [place] [address], [address], [place], [place], [facility] Email: [email or web address] Physical Therapy Initial Evaluation PT-OP-A Visit Information Start: 03/03/23 12:58 Freq: Status: Active Protocol: Document 03/03/23 12:59 [facility] (Rec: 03/03/23 13:23 [facility] [id number]) Out-Patient Physical Therapy Visit Information Visit Information Visit Type Initial Evaluation Visit Start Time 12:59 Visit Stop Time 13:53 Visit Number 1 Evaluation Information Evaluation Date 03/03/23 PT-OP-B Current Condition Start: 03/03/23 12:58 Freq: Status: Active Protocol: Document 03/03/23 12:59 [facility]AK (Rec: 03/03/23 13:23 [facility] [id number]) Current Condition History of Current Condition Onset Date Mid November 2022 Current Complaints right elbow pain History of Current Condition Drove nonstop 14 hrs to [place], did a little heavy lifting while there. Dec 31 drove back nonstop, started noticing right elbow pain. Took some Ibuprofen. Saw Dr. Gerber, she increased Ibuprofen to 600 mg 2x/day, helpful. Rachael patino noticed fluid right elbow, went to walk in clinic, no change in medication. Was hot and swollen. Uric acid test normal. Has iced elbow and babied it. Hurts to lift up cell phone, pull on anything. 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 Not able to fully extend his elbow. Prior Treatments and Tests x-ray neg MRI: 1. Low to moderate grade lateral epicondylitis as above . 2. Low-grade distal triceps tendinosis. 3. Contusion involving proximal olecranon near distal triceps insertion. No fracture or dislocation. No osteochondral injuries. Treatment Goals Patient/Caregiver Goals decrease pain, be able to resume typical activities including golf Prior Functional Status Baseline Function- ADL's Independent Baseline Function- Mobility Independent Baseline Function- Recreation/Hobbies no limitations Current Functional Impairments (Reported) Functional Limitations- ADL's painful Functional Limitations- Recreation/ unable to do any usual Hobbies athletic activities including golfing PT-OP-C Subjective Start: 03/03/23 12:58 Freq: Status: Active Protocol: Document 03/03/23 12:59 [facility] (Rec: 03/03/23 13:23 [facility] [id number]) Patient Questionnaires Quick Dash- Work and Sports Modules Quick Dash W&S Score 79% OP-PT Pain Assessment Pain Assessment Grid Paper Pain Assessment Grid Completed Yes Location right elbow Intensity 8 Scale Used Numeric (0 - 10) Description Burning,Pressure,Sharp, Shooting,Stabbing,Tender, Tightness Frequency Frequent Pain Aggravating Factors Activity Pain Alleviating Factors Inactivity,Rest Home Pain Medication Use Pain Medications Used Yes Home Pain Medication Frequency occasional Pain Behaviors Pain Behaviors Facial Grimacing,Guarding, Wincing Comments Pain Comments didn't like taking so much Ibuprofen, after a couple weeks mostly stopped taking PT-OP-E Functional Tests Start: 03/03/23 12:58 Freq: Status: Active Protocol: Document 03/03/23 12:59 [facility] (Rec: 03/03/23 13:23 [facility] [id number]) Functional Tests Modified Elderly Mobility Scale (MEMS) MEMS Impairment 60 to <80% Impaired (Score 5-8 ) PT-OP-J Posture/Palpation/Skin Start: 03/03/23 12:58 Freq: Status: Active Protocol: Document 03/03/23 12:59 [facility] (Rec: 03/04/23 18:02 [facility] [id number]) Posture Evaluation Position Sitting Head/C-Spine Posture Forward Head T-Spine Posture Increased Kyphosis Shoulder Posture (R) Rounded Scapula Posture (R) Protracted Arm Posture (R) Internally Rotated Palpation Assessment Location right elbow Palpation Location lateral epicondyle, extensor tendons Palpation Findings Edema,Soft Tissue Tightness, Muscle Guarding,Tenderness PT-OP-K Range of Motion Start: 03/03/23 12:58 Freq: Status: Active Protocol: Document 03/03/23 12:59 [facility] (Rec: 03/04/23 18:02 [facility] [id number]) Shoulder Goniometric Range of Motion Shoulder Right Shoulder ROM WFL No Flexion 142 Extension 15 Abduction 144 Horizontal Abduction 20 External Rotation at 0 degrees Abduction 45 Internal Rotation Behind Back (text) L5 Left Shoulder ROM WFL Yes Shoulder ROM Limitations Shoulder ROM Limitations Soft Tissue Tightness Elbow/Forearm Range of Motion Elbow/Forearm Right Elbow/Forearm ROM WFL No Elbow Flexion (degrees) 122 Elbow Extension (degrees) 22 Pronation (degrees) 58 Left Elbow/Forearm ROM WFL Yes Elbow/Forearm ROM Limitations Elbow/Forearm ROM Limitations Pain,Swelling Wrist Goniometric Range of Motion Wrist Right Wrist ROM WFL No Flexion Active (degrees) 40 Extension Active (degrees) 35 Left Wrist ROM WFL Yes ROM Limitations Wrist Limitations of Range of Motion Pain PT-OP-M Strength Start: 03/03/23 12:58 Freq: Status: Active Protocol: Document 03/03/23 12:59 [facility] (Rec: 03/04/23 18:02 [facility] [id number]) Elbow/Forearm Strength Elbow and Forearm Manual Muscle Testing Left Flexion (C6) 5 Normal Extension (C7) 5 Normal Pronation 5 Normal Supination 5 Normal Wrist Strength Wrist Manual Muscle Testing Right Flexion (C7) 3- Fair- Extension (C6) 3- Fair- Ulnar Deviation 3- Fair- Radial Deviation 3- Fair- Comments limited by pain Hand Fund Accounting Manager/Pinch Strength Hand Dominance Hand Dominance Right PT-OP-Q Treatments Start: 03/03/23 12:58 Freq: Status: Active Protocol: Document 03/03/23 12:59 [facility] (Rec: 03/04/23 18:02 [facility] [id number]) Self-Care/Home Management Treatment Education Patient Education Home Exercise Program,Pain Management Other Education issued written HO consider wearing elbow compression or brace PT-OP-R Modalities Start: 03/03/23 12:58 Freq: Status: Active Protocol: Document 03/03/23 12:59 [facility] (Rec: 03/04/23 18:02 [facility] [id number]) Electric Stimulation Electric Stimulation Interferential Current (IFC) Body Location left elbow Intensity 17 Target/Sweep Sweep Patient Position Hooklying Combined With Heat/Cold Cold Pack Ultrasound Therapy Treatment Right Elbow Patient Position Sitting Coupling Medium Ultrasound Gel Mode Setting Pulsed Duty Cycle 50% Intensity Setting (w/cm2) 1 PT-OP-T Assessment and Plan Start: 03/03/23 12:58 Freq: Status: Active Protocol: Document 03/03/23 12:59 [facility] (Rec: 03/04/23 18:02 [facility] [id number]) Physical Therapy Assessment Evaluation Complexity Number of Personal Factors/Comorbidities 1-2 Number of Body Systems Impaired 3 Clinical Presentation at Evaluation Evolving Impairments Impairments Activity Tolerance,Edema,Pain Goals Three Impairment activity tolerance Impairment Quickdash UE disability Index score 79% Short Term Goal (STG) decrease Quickdash score to no greater than 50% as measure of improved activity tolerance and function right UE STG Duration 04/04/23 Group Home Goal (LTG) decrease Quickdash score to no greater than 10% as measure of improved activity tolerance and function right UE LTG Duration 05/03/23 Two Impairment edema right elbow Group Home Goal (LTG) decrease right elbow edema to WNL LTG Duration 05/03/23 One Impairment right elbow pain as high as 8/ 10 Short Term Goal (STG) decrease elbow pain to no greater than 4/10 with all usual activities STG Duration 04/04/23 Group Home Goal (LTG) decrase elbow pain to no greater than 2/10 with all usual activities LTG Duration 05/03/23 Assessment Summary Assessment Patient presents with function limiting pain right elbow after prolonged driving as well as some heavy lifting. He also experienced a moderate amount of edema and warmth in the elbow joint which has decreased some. Signs and symptoms are consistent with lateral epicondylitis. Patient would benefit from physical therapy to decrease his pain and swelling and help him return to full active use of his right UE. POC was discussed and patient was in agreement. Physical Therapy Plan Frequency and Duration Frequency of Treatment 2x/Week Duration of treatment (weeks) 8 Plan of Care Start Date 03/03/23 Plan of Care End Date 05/02/23 Therapeutic Interventions Therapeutic Interventions Home Exercise Program,Manual Therapy,Patient/Caregiver Education,Self-Care/Home Management,Soft Tissue Mobilization,Taping, Therapeutic Activities, Therapeutic Exercises Modalities Cold Pack/Ice Massage,Electric Stimulation,Hot Packs, Infrared Therapy,Iontophoresis ,Ultrasound Next Visit Focus/Plan Next Note Type Treatment Note Next Visit Plan ASsess response to first treatemtnt today. REview HEP. Continue with modalities and manual therapy as indicated including deep tissue mobilization and gently progress HEP as tolerated. Evaluate patient's elbow brace which he reports he wears some but didn't bring to PT. Consider kinesiotape.
--- NOTE | 2023-03-03 16:00 | PT.OPPOC ---
Physical, Occupational & Speech Therapy At [facility] Current Diagnoses Lateral epicondylitis, unspecified elbow (03/03/23) Visit Care Team Role Provider Type Jaleel Santos MD Family Provider Physician Primary Care Provider Specialty: Family Practice Address: [address] [place] [address], [id number] Email: [email or web address] Lucila Gerber DO Attending Provider Physician Referring Provider Specialty: Medical Address: [address] [place] [address], [address], [place], [address] Email: [email or web address] Plan Of Care PT-OP-T Assessment and Plan Start: 03/03/23 12:58 Freq: Status: Active Protocol: Document 03/03/23 12:59 [facility] (Rec: 03/04/23 18:02 [facility] [id number]) Physical Therapy Assessment Evaluation Complexity Number of Personal Factors/Comorbidities 1-2 Number of Body Systems Impaired 3 Clinical Presentation at Evaluation Evolving Impairments Impairments Activity Tolerance,Edema,Pain Goals Three Impairment activity tolerance Impairment Quickdash UE disability Index score 79% Short Term Goal (STG) decrease Quickdash score to no greater than 50% as measure of improved activity tolerance and function right UE STG Duration 04/04/23 Prison Goal (LTG) decrease Quickdash score to no greater than 10% as measure of improved activity tolerance and function right UE LTG Duration 05/03/23 Two Impairment edema right elbow Prison Goal (LTG) decrease right elbow edema to WNL LTG Duration 05/03/23 One Impairment right elbow pain as high as 8/ 10 Short Term Goal (STG) decrease elbow pain to no greater than 4/10 with all usual activities STG Duration 04/04/23 Prison Goal (LTG) decrase elbow pain to no greater than 2/10 with all usual activities LTG Duration 05/03/23 Assessment Summary Assessment Patient presents with function limiting pain right elbow after prolonged driving as well as some heavy lifting. He also experienced a moderate amount of edema and warmth in the elbow joint which has decreased some. Signs and symptoms are consistent with lateral epicondylitis. Patient would benefit from physical therapy to decrease his pain and swelling and help him return to full active use of his right UE. POC was discussed and patient was in agreement. Physical Therapy Plan Frequency and Duration Frequency of Treatment 2x/Week Duration of treatment (weeks) 8 Plan of Care Start Date 03/03/23 Plan of Care End Date 05/02/23 Therapeutic Interventions Therapeutic Interventions Home Exercise Program,Manual Therapy,Patient/Caregiver Education,Self-Care/Home Management,Soft Tissue Mobilization,Taping, Therapeutic Activities, Therapeutic Exercises Modalities Cold Pack/Ice Massage,Electric Stimulation,Hot Packs, Infrared Therapy,Iontophoresis ,Ultrasound Next Visit Focus/Plan Next Note Type Treatment Note Next Visit Plan ASsess response to first treatemtnt today. REview HEP. Continue with modalities and manual therapy as indicated including deep tissue mobilization and gently progress HEP as tolerated. Evaluate patient's elbow brace which he reports he wears some but didn't bring to PT. Consider kinesiotape. Plan of Care Dates Plan of Care Start Date 03/03/23 Plan of Care End Date 05/02/23 Electronically Signed by: Cynthia Smith, PT 03/04/23 7808 If you are in agreement with this Plan of Care, please return a signed and dated copy. I have reviewed this Plan of Care and certify that the skilled therapy services above are required to meet the patient?s needs. Physician Signature Date Printed Name and Credentials Clinical Instructor Signature Printed Name and Credentials
--- NOTE | 2023-03-05 12:08 | PT.OTN ---
Current Diagnoses Lateral epicondylitis, unspecified elbow (03/05/23) Physical Therapy Treatment Note PT-OP-A Visit Information Start: 03/03/23 12:58 Freq: Status: Active Protocol: Document 03/05/23 14:32 [facility] (Rec: 03/05/23 15:17 [facility] [id number]) Out-Patient Physical Therapy Visit Information Visit Information Visit Type Treatment Note Visit Start Time 14:32 Visit Stop Time 15:24 Visit Number 2 Evaluation Information Evaluation Date 03/03/23 PT-OP-B Current Condition Start: 03/03/23 12:58 Freq: Status: Active Protocol: Document 03/05/23 14:32 [facility] (Rec: 03/05/23 15:17 [facility] [id number]) Current Condition History of Current Condition Onset Date Mid November 2022 Current Complaints right elbow pain History of Current Condition Drove nonstop 14 hrs to [place], did a little heavy lifting while there. Dec 31 drove back nonstop, started noticing right elbow pain. Took some Ibuprofen. Saw Dr. Gerber, she increased Ibuprofen to 600 mg 2x/day, helpful. Rachael Anaya carey noticed fluid right elbow, went to walk in clinic, no change in medication. Was hot and swollen. Uric acid test normal. Has iced elbow and babied it. Hurts to lift up cell phone, pull on anything. 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 Not able to fully extend his elbow. Prior Treatments and Tests x-ray neg MRI: 1. Low to moderate grade lateral epicondylitis as above . 2. Low-grade distal triceps tendinosis. 3. Contusion involving proximal olecranon near distal triceps insertion. No fracture or dislocation. No osteochondral injuries. Treatment Goals Patient/Caregiver Goals decrease pain, be able to resume typical activities including golf PT-OP-C Subjective Start: 03/03/23 12:58 Freq: Status: Active Protocol: Document 03/05/23 14:32 [facility] (Rec: 03/05/23 15:17 [facility] [id number]) OP-PT Subjective Patient Comments Patient Comments Not sure if pain patch ( iontohoresis) helpful, stretch were painful. PT-OP-E Functional Tests Start: 03/03/23 12:58 Freq: Status: Active Protocol: Document 03/03/23 12:59 [facility] (Rec: 03/03/23 13:23 [facility] [id number]) Functional Tests Modified Elderly Mobility Scale (MEMS) MEMS Impairment 60 to <80% Impaired (Score 5-8 ) PT-OP-J Posture/Palpation/Skin Start: 03/03/23 12:58 Freq: Status: Active Protocol: Document 03/03/23 12:59 [facility] (Rec: 03/04/23 18:02 [facility] [id number]) Posture Evaluation Position Sitting Head/C-Spine Posture Forward Head T-Spine Posture Increased Kyphosis Shoulder Posture (R) Rounded Scapula Posture (R) Protracted Arm Posture (R) Internally Rotated Palpation Assessment Location right elbow Palpation Location lateral epicondyle, extensor tendons Palpation Findings Edema,Soft Tissue Tightness, Muscle Guarding,Tenderness PT-OP-K Range of Motion Start: 03/03/23 12:58 Freq: Status: Active Protocol: Document 03/03/23 12:59 [facility] (Rec: 03/04/23 18:02 [facility] [id number]) Shoulder Goniometric Range of Motion Shoulder Right Shoulder ROM WFL No Flexion 142 Extension 15 Abduction 144 Horizontal Abduction 20 External Rotation at 0 degrees Abduction 45 Internal Rotation Behind Back (text) L5 Left Shoulder ROM WFL Yes Shoulder ROM Limitations Shoulder ROM Limitations Soft Tissue Tightness Elbow/Forearm Range of Motion Elbow/Forearm Right Elbow/Forearm ROM WFL No Elbow Flexion (degrees) 122 Elbow Extension (degrees) 22 Pronation (degrees) 58 Left Elbow/Forearm ROM WFL Yes Elbow/Forearm ROM Limitations Elbow/Forearm ROM Limitations Pain,Swelling Wrist Goniometric Range of Motion Wrist Right Wrist ROM WFL No Flexion Active (degrees) 40 Extension Active (degrees) 35 Left Wrist ROM WFL Yes ROM Limitations Wrist Limitations of Range of Motion Pain PT-OP-M Strength Start: 03/03/23 12:58 Freq: Status: Active Protocol: Document 03/03/23 12:59 [facility] (Rec: 03/04/23 18:02 [facility] [id number]) Elbow/Forearm Strength Elbow and Forearm Manual Muscle Testing Left Flexion (C6) 5 Normal Extension (C7) 5 Normal Pronation 5 Normal Supination 5 Normal Wrist Strength Wrist Manual Muscle Testing Right Flexion (C7) 3- Fair- Extension (C6) 3- Fair- Ulnar Deviation 3- Fair- Radial Deviation 3- Fair- Comments limited by pain Hand Rig Hand/Pinch Strength Hand Dominance Hand Dominance Right PT-OP-Q Treatments Start: 03/03/23 12:58 Freq: Status: Active Protocol: Document 03/05/23 14:32 [facility] (Rec: 03/05/23 15:17 [facility] [id number]) Therapeutic Exercises Sitting Exercises tricep press Comments next session bicep curl Comments next session ball squeeze Comments next session forearm pron/sup Equipment Used hammer Comments next session eccentric wrist extensor Reps/Minutes 2x30 Comments stretch, not pain wrist extensor stretch Reps/Minutes 2x30 Comments stretch, not pain Manual Therapy Treatment Soft Tissue Mobilization right forearm extensors Mobilization Type Myofascial Release,Strumming Intensity/Depth Moderate Body Position Supine Taping right elbow Body Location lateral Treatment Focus dec pain and swelling Type of Tape kinesio Skin Inspection intact Comments 2 I strips (x over lat epi) 50 % tension 1 fan strip with base upper arm, tails to mid lateral forearm instructed to remove if discomfort or irritatin to skin Self-Care/Home Management Treatment Education Patient Education Home Exercise Program,Pain Management Other Education recommend compression sleeve vs pt current velcro brace; trial size F Tubigrip right forearm, reported better suppor than brace PT-OP-R Modalities Start: 03/03/23 12:58 Freq: Status: Active Protocol: Document 03/05/23 14:32 [facility] (Rec: 03/05/23 15:17 [facility] [id number]) Hot Pack/Cold Pack Treatment Cold Pack Location left elbow Patient Position Supine Patient Tolerance Good Ultrasound Therapy Treatment Right Elbow Patient Position Sitting Coupling Medium Ultrasound Gel Mode Setting Pulsed Duty Cycle 50% Intensity Setting (w/cm2) 1 PT-OP-T Assessment and Plan Start: 03/03/23 12:58 Freq: Status: Active Protocol: Document 03/05/23 14:32 [facility] (Rec: 03/05/23 15:17 [facility] [id number]) Physical Therapy Assessment Impairments Impairments Activity Tolerance,Edema,Pain Goals Three Impairment activity tolerance Impairment Quickdash UE disability Index score 79% Short Term Goal (STG) decrease Quickdash score to no greater than 50% as measure of improved activity tolerance and function right UE STG Duration 04/04/23 Money Examiner Goal (LTG) decrease Quickdash score to no greater than 10% as measure of improved activity tolerance and function right UE LTG Duration 05/03/23 Two Impairment edema right elbow [facility] Goal (LTG) decrease right elbow edema to WNL LTG Duration 05/03/23 One Impairment right elbow pain as high as 8/ 10 Short Term Goal (STG) decrease elbow pain to no greater than 4/10 with all usual activities STG Duration 04/04/23 [facility] Goal (LTG) decrase elbow pain to no greater than 2/10 with all usual activities LTG Duration 05/03/23 Assessment Summary Assessment unsure if iontophoresis helpful, interested in trying kinesiotape. Corrections made to patient performance of HEP for decreased intensity and correct form of both stretch and strengthening ex. INstructed to consider obtaining elbow sleeve/UE compression sleeve for support and dec swelling. Physical Therapy Plan Frequency and Duration Frequency of Treatment 2x/Week Duration of treatment (weeks) 8 Plan of Care Start Date 03/03/23 Plan of Care End Date 05/02/23 Therapeutic Interventions Therapeutic Interventions Home Exercise Program,Manual Therapy,Patient/Caregiver Education,Self-Care/Home Management,Soft Tissue Mobilization,Taping, Therapeutic Activities, Therapeutic Exercises Modalities Cold Pack/Ice Massage,Electric Stimulation,Hot Packs, Infrared Therapy,Iontophoresis ,Ultrasound Next Visit Focus/Plan Next Note Type Treatment Note Next Visit Plan Progress ther ex for right UE, continue modalities and manual therapy as indicated by patient response. Assess any new comperssion sleeve obtained and response to KT tape.
--- NOTE | 2023-03-10 16:39 | PT.OTN ---
Current Diagnoses Lateral epicondylitis, unspecified elbow (03/10/23) Physical Therapy Treatment Note PT-OP-A Visit Information Start: 03/03/23 12:58 Freq: Status: Active Protocol: Document 03/10/23 13:16 SAK (Rec: 03/10/23 13:52 [facility] [id number]) Out-Patient Physical Therapy Visit Information Visit Information Visit Type Treatment Note Visit Note pt 16 min late Visit Start Time 13:16 Visit Stop Time 13:54 Visit Number [id number] Evaluation Information Evaluation Date 03/03/23 PT-OP-B Current Condition Start: 03/03/23 12:58 Freq: Status: Active Protocol: Document 03/10/23 13:16 SAK (Rec: 03/10/23 13:52 [facility] [id number]) Current Condition History of Current Condition Onset Date Mid November 2022 Current Complaints right elbow pain History of Current Condition Drove nonstop 14 hrs to [place], did a little heavy lifting while there. Dec 31 drove back nonstop, started noticing right elbow pain. Took some Ibuprofen. Saw Dr. Gerber, she increased Ibuprofen to 600 mg 2x/day, helpful. Rachael patino noticed fluid right elbow, went to walk in clinic, no change in medication. Was hot and swollen. Uric acid test normal. Has iced elbow and babied it. Hurts to lift up cell phone, pull on anything. 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 Not able to fully extend his elbow. Prior Treatments and Tests x-ray neg MRI: 1. Low to moderate grade lateral epicondylitis as above . 2. Low-grade distal triceps tendinosis. 3. Contusion involving proximal olecranon near distal triceps insertion. No fracture or dislocation. No osteochondral injuries. Treatment Goals Patient/Caregiver Goals decrease pain, be able to resume typical activities including golf PT-OP-C Subjective Start: 03/03/23 12:58 Freq: Status: Active Protocol: Document 03/10/23 13:16 SAK (Rec: 03/10/23 16:38 [facility] [id number]) OP-PT Subjective Patient Comments Patient Comments States felt good after PT, overdid with exercise and activity, then very sore last couple days. Liked kinesiotape, felt very supportive PT-OP-E Functional Tests Start: 03/03/23 12:58 Freq: Status: Active Protocol: Document 03/03/23 12:59 [facility] (Rec: 03/03/23 13:23 [facility] [id number]) Functional Tests Modified Elderly Mobility Scale (MEMS) MEMS Impairment 60 to <80% Impaired (Score 5-8 ) PT-OP-J Posture/Palpation/Skin Start: 03/03/23 12:58 Freq: Status: Active Protocol: Document 03/03/23 12:59 [facility] (Rec: 03/04/23 18:02 [facility] [id number]) Posture Evaluation Position Sitting Head/C-Spine Posture Forward Head T-Spine Posture Increased Kyphosis Shoulder Posture (R) Rounded Scapula Posture (R) Protracted Arm Posture (R) Internally Rotated Palpation Assessment Location right elbow Palpation Location lateral epicondyle, extensor tendons Palpation Findings Edema,Soft Tissue Tightness, Muscle Guarding,Tenderness PT-OP-K Range of Motion Start: 03/03/23 12:58 Freq: Status: Active Protocol: Document 03/03/23 12:59 [facility] (Rec: 03/04/23 18:02 [facility] [id number]) Shoulder Goniometric Range of Motion Shoulder Right Shoulder ROM WFL No Flexion 142 Extension 15 Abduction 144 Horizontal Abduction 20 External Rotation at 0 degrees Abduction 45 Internal Rotation Behind Back (text) L5 Left Shoulder ROM WFL Yes Shoulder ROM Limitations Shoulder ROM Limitations Soft Tissue Tightness Elbow/Forearm Range of Motion Elbow/Forearm Right Elbow/Forearm ROM WFL No Elbow Flexion (degrees) 122 Elbow Extension (degrees) 22 Pronation (degrees) 58 Left Elbow/Forearm ROM WFL Yes Elbow/Forearm ROM Limitations Elbow/Forearm ROM Limitations Pain,Swelling Wrist Goniometric Range of Motion Wrist Right Wrist ROM WFL No Flexion Active (degrees) 40 Extension Active (degrees) 35 Left Wrist ROM WFL Yes ROM Limitations Wrist Limitations of Range of Motion Pain PT-OP-M Strength Start: 03/03/23 12:58 Freq: Status: Active Protocol: Document 03/03/23 12:59 [facility] (Rec: 03/04/23 18:02 [facility] [id number]) Elbow/Forearm Strength Elbow and Forearm Manual Muscle Testing Left Flexion (C6) 5 Normal Extension (C7) 5 Normal Pronation 5 Normal Supination 5 Normal Wrist Strength Wrist Manual Muscle Testing Right Flexion (C7) 3- Fair- Extension (C6) 3- Fair- Ulnar Deviation 3- Fair- Radial Deviation 3- Fair- Comments limited by pain Hand Claims Adjustor/Pinch Strength Hand Dominance Hand Dominance Right PT-OP-Q Treatments Start: 03/03/23 12:58 Freq: Status: Active Protocol: Document 03/10/23 13:16 [facility] (Rec: 03/10/23 16:38 [facility] [id number]) Manual Therapy Treatment Soft Tissue Mobilization right tricep Mobilization Type Myofascial Release Intensity/Depth Moderate Body Position Sitting right forearm extensors Mobilization Type Myofascial Release,Strumming Intensity/Depth Moderate Body Position Sitting Taping right elbow Body Location lateral Treatment Focus dec pain and swelling Type of Tape kinesio Skin Inspection intact Comments 2 I strips (x over lat epi) 50 % tension 1 fan strip with base upper arm, tails to mid lateral forearm instructed to remove if discomfort or irritatin to skin Self-Care/Home Management Treatment Education Patient Education Home Exercise Program,Pain Management Other Education recommend compression sleeve vs pt current velcro brace; trial size G Tubigrip right forearm use of tennis or raquetball for self-massage. PT-OP-R Modalities Start: 03/03/23 12:58 Freq: Status: Active Protocol: Document 03/10/23 13:16 [facility] (Rec: 03/10/23 16:38 [facility] [id number]) Hot Pack/Cold Pack Treatment Cold Pack Location left elbow Patient Position Supine Patient Tolerance Good Ultrasound Therapy Treatment Right Elbow Patient Position Sitting Coupling Medium Ultrasound Gel Mode Setting Pulsed Duty Cycle 50% Intensity Setting (w/cm2) 1 PT-OP-T Assessment and Plan Start: 03/03/23 12:58 Freq: Status: Active Protocol: Document 03/10/23 13:16 [facility] (Rec: 03/10/23 13:52 [facility] [id number]) Physical Therapy Assessment Impairments Impairments Activity Tolerance,Edema,Pain Goals Three Impairment activity tolerance Impairment Quickdash UE disability Index score 79% Short Term Goal (STG) decrease Quickdash score to no greater than 50% as measure of improved activity tolerance and function right UE STG Duration 04/04/23 Fdc Goal (LTG) decrease Quickdash score to no greater than 10% as measure of improved activity tolerance and function right UE LTG Duration 05/03/23 Two Impairment edema right elbow Stud Driver Goal (LTG) decrease right elbow edema to WNL LTG Duration 05/03/23 One Impairment right elbow pain as high as 8/ 10 Short Term Goal (STG) decrease elbow pain to no greater than 4/10 with all usual activities STG Duration 04/04/23 Fdc Goal (LTG) decrase elbow pain to no greater than 2/10 with all usual activities LTG Duration 05/03/23 Assessment Summary Assessment Reported decreased pain after last PT treatment, overdid exercise, weights and activity and flared elbow. Shown self -massage to forearm and tricep using ball. No additional ex for HEP and encouraged to ease off weights. Reported size F Tubigrip too tight; initially felt good then reports change in temperature fingers, removed. Issued size G for trial today. Physical Therapy Plan Frequency and Duration Frequency of Treatment 2x/Week Duration of treatment (weeks) 8 Plan of Care Start Date 03/03/23 Plan of Care End Date 05/02/23 Therapeutic Interventions Therapeutic Interventions Home Exercise Program,Manual Therapy,Patient/Caregiver Education,Self-Care/Home Management,Soft Tissue Mobilization,Taping, Therapeutic Activities, Therapeutic Exercises Modalities Cold Pack/Ice Massage,Electric Stimulation,Hot Packs, Infrared Therapy,Iontophoresis ,Ultrasound Next Visit Focus/Plan Next Note Type Treatment Note Next Visit Plan ASsess response to self- massage, size G Tubigrip. Have pt demo own ex program and discuss weights used. Continue deep tissue work, ultrasound, ice, and KT tape as indicated.
--- NOTE | 2023-03-12 16:37 | PT.OTN ---
Current Diagnoses Lateral epicondylitis, unspecified elbow (03/12/23) Physical Therapy Treatment Note PT-OP-A Visit Information Start: 03/03/23 12:58 Freq: Status: Active Protocol: Document 03/12/23 15:17 SAK (Rec: 03/12/23 16:35 [facility] [id number]) Out-Patient Physical Therapy Visit Information Visit Information Visit Type Treatment Note Visit Start Time 15:16 Visit Stop Time 16:15 Visit Number [id number] Evaluation Information Evaluation Date 03/03/23 PT-OP-B Current Condition Start: 03/03/23 12:58 Freq: Status: Active Protocol: Document 03/12/23 15:17 SAK (Rec: 03/12/23 16:35 [facility] [id number]) Current Condition History of Current Condition Onset Date Mid November 2022 Current Complaints right elbow pain History of Current Condition Drove nonstop 14 hrs to [place], did a little heavy lifting while there. Dec 31 drove back nonstop, started noticing right elbow pain. Took some Ibuprofen. Saw Dr. Gerber, she increased Ibuprofen to 600 mg 2x/day, helpful. Rachael Anaya carey noticed fluid right elbow, went to walk in clinic, no change in medication. Was hot and swollen. Uric acid test normal. Has iced elbow and babied it. Hurts to lift up cell phone, pull on anything. 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 Not able to fully extend his elbow. Prior Treatments and Tests x-ray neg MRI: 1. Low to moderate grade lateral epicondylitis as above . 2. Low-grade distal triceps tendinosis. 3. Contusion involving proximal olecranon near distal triceps insertion. No fracture or dislocation. No osteochondral injuries. 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 PT-OP-E Functional Tests Start: 03/03/23 12:58 Freq: Status: Active Protocol: Document 03/03/23 12:59 [facility] (Rec: 03/03/23 13:23 [facility] [id number]) Functional Tests Modified Elderly Mobility Scale (MEMS) MEMS Impairment 60 to <80% Impaired (Score 5-8 ) PT-OP-J Posture/Palpation/Skin Start: 03/03/23 12:58 Freq: Status: Active Protocol: Document 03/03/23 12:59 [facility] (Rec: 03/04/23 18:02 [facility] [id number]) Posture Evaluation Position Sitting Head/C-Spine Posture Forward Head T-Spine Posture Increased Kyphosis Shoulder Posture (R) Rounded Scapula Posture (R) Protracted Arm Posture (R) Internally Rotated Palpation Assessment Location right elbow Palpation Location lateral epicondyle, extensor tendons Palpation Findings Edema,Soft Tissue Tightness, Muscle Guarding,Tenderness PT-OP-K Range of Motion Start: 03/03/23 12:58 Freq: Status: Active Protocol: Document 03/03/23 12:59 [facility] (Rec: 03/04/23 18:02 [facility] [id number]) Shoulder Goniometric Range of Motion Shoulder Right Shoulder ROM WFL No Flexion 142 Extension 15 Abduction 144 Horizontal Abduction 20 External Rotation at 0 degrees Abduction 45 Internal Rotation Behind Back (text) L5 Left Shoulder ROM WFL Yes Shoulder ROM Limitations Shoulder ROM Limitations Soft Tissue Tightness Elbow/Forearm Range of Motion Elbow/Forearm Right Elbow/Forearm ROM WFL No Elbow Flexion (degrees) 122 Elbow Extension (degrees) 22 Pronation (degrees) 58 Left Elbow/Forearm ROM WFL Yes Elbow/Forearm ROM Limitations Elbow/Forearm ROM Limitations Pain,Swelling Wrist Goniometric Range of Motion Wrist Right Wrist ROM WFL No Flexion Active (degrees) 40 Extension Active (degrees) 35 Left Wrist ROM WFL Yes ROM Limitations Wrist Limitations of Range of Motion Pain PT-OP-M Strength Start: 03/03/23 12:58 Freq: Status: Active Protocol: Document 03/03/23 12:59 [facility] (Rec: 03/04/23 18:02 [facility] [id number]) Elbow/Forearm Strength Elbow and Forearm Manual Muscle Testing Left Flexion (C6) 5 Normal Extension (C7) 5 Normal Pronation 5 Normal Supination 5 Normal Wrist Strength Wrist Manual Muscle Testing Right Flexion (C7) 3- Fair- Extension (C6) 3- Fair- Ulnar Deviation 3- Fair- Radial Deviation 3- Fair- Comments limited by pain Hand Furniture Delivery Driver/Pinch Strength Hand Dominance Hand Dominance Right PT-OP-Q Treatments Start: 03/03/23 12:58 Freq: Status: Active Protocol: Document 03/12/23 15:17 [facility] (Rec: 03/12/23 16:35 [facility] [id number]) Therapeutic Exercises Supine Exercises tricep ext Resistance 0 Reps/Minutes 10x pec min stretch Side bilateral Reps/Minutes 5 x active, 2x30 stretch with deep breathing pec ishmael stretch Side bilateral Reps/Minutes 5 x active, 2x30 stretch with deep breathing Sitting Exercises wrist ext Resistance 2# Reps/Minutes 10x wrist flex Resistance 2# Reps/Minutes 10x bicep curl Resistance 2# Reps/Minutes 10 ball squeeze Resistance green putty Reps/Minutes 10x Comments denied pain forearm pron/sup Equipment Used hammer Reps/Minutes 10x Comments denied pain wrist extensor stretch Reps/Minutes 2x30 Comments stretch, not pain Manual Therapy Treatment Soft Tissue Mobilization right tricep Mobilization Type Myofascial Release Intensity/Depth Moderate Body Position Sitting right forearm extensors Mobilization Type Myofascial Release,Strumming Intensity/Depth Moderate Body Position Sitting Taping right elbow Body Location lateral Treatment Focus dec pain and swelling Type of Tape kinesio Skin Inspection intact Comments 2 I strips (x over lat epi) 50 % tension 1 fan strip with base upper arm, tails to mid lateral forearm instructed to remove if discomfort or irritatin to skin Self-Care/Home Management Treatment Education Patient Education Home Exercise Program,Pain Management Other Education gradually progress ther ex with min weight PT-OP-R Modalities Start: 03/03/23 12:58 Freq: Status: Active Protocol: Document 03/12/23 15:17 [facility] (Rec: 03/12/23 16:35 [facility] [id number]) Hot Pack/Cold Pack Treatment Cold Pack Location left elbow Patient Position Supine Patient Tolerance Good Ultrasound Therapy Treatment Right Elbow Patient Position Sitting Coupling Medium Ultrasound Gel Frequency Setting (mHz) 3 Mode Setting Pulsed Duty Cycle 50% Intensity Setting (w/cm2) 1 PT-OP-T Assessment and Plan Start: 03/03/23 12:58 Freq: Status: Active Protocol: Document 03/12/23 15:17 [facility] (Rec: 03/12/23 16:35 [facility] [id number]) Physical Therapy Assessment Impairments Impairments Activity Tolerance,Edema,Pain Goals Three Impairment activity tolerance Impairment Quickdash UE disability Index score 79% Short Term Goal (STG) decrease Quickdash score to no greater than 50% as measure of improved activity tolerance and function right UE STG Duration 04/04/23 Retirement Goal (LTG) decrease Quickdash score to no greater than 10% as measure of improved activity tolerance and function right UE LTG Duration 05/03/23 Two Impairment edema right elbow Retirement Goal (LTG) decrease right elbow edema to WNL LTG Duration 05/03/23 One Impairment right elbow pain as high as 8/ 10 Short Term Goal (STG) decrease elbow pain to no greater than 4/10 with all usual activities STG Duration 04/04/23 Dog Control Officer Goal (LTG) decrase elbow pain to no greater than 2/10 with all usual activities LTG Duration 05/03/23 Progress Towards Goals Progress Towards Goals Progressing Toward Goals Assessment Summary Assessment Reporting improvement with dec pain and swelling, still pain with lifting and grabbing objects though less. Feel tightness right pecs with weakness right scap contributory. Physical Therapy Plan Frequency and Duration Frequency of Treatment 2x/Week Duration of treatment (weeks) 8 Plan of Care Start Date 03/03/23 Plan of Care End Date 05/02/23 Therapeutic Interventions Therapeutic Interventions Home Exercise Program,Manual Therapy,Patient/Caregiver Education,Self-Care/Home Management,Soft Tissue Mobilization,Taping, Therapeutic Activities, Therapeutic Exercises Modalities Cold Pack/Ice Massage,Electric Stimulation,Hot Packs, Infrared Therapy,Iontophoresis ,Ultrasound Next Visit Focus/Plan Next Note Type Treatment Note Next Visit Plan Continue deep tissue work, ultrasound, ice, and KT tape as indicated. Progress with wrist and elbow strengthening, flexibility right shoulder girdle as prior pec injury and surgery likely contributory. Consider prone scap strengthening.
--- NOTE | 2023-03-17 15:38 | PT.OTN ---
Current Diagnoses Lateral epicondylitis, unspecified elbow (03/17/23) Physical Therapy Treatment Note PT-OP-A Visit Information Start: 03/03/23 12:58 Freq: Status: Active Protocol: Document 03/17/23 14:25 [facility] (Rec: 03/17/23 15:38 [facility] [id number]) Out-Patient Physical Therapy Visit Information Visit Information Visit Type Treatment Note Visit Start Time 14:32 Visit Stop Time 15:30 Visit Number 5 Evaluation Information Evaluation Date 03/03/23 PT-OP-B Current Condition Start: 03/03/23 12:58 Freq: Status: Active Protocol: Document 03/17/23 14:25 [facility] (Rec: 03/17/23 15:38 [facility] [id number]) Current Condition History of Current Condition Onset Date Mid November 2022 Current Complaints right elbow pain History of Current Condition Drove nonstop 14 hrs to [place], did a little heavy lifting while there. Dec 31 drove back nonstop, started noticing right elbow pain. Took some Ibuprofen. Saw Dr. Gerber, she increased Ibuprofen to 600 mg 2x/day, helpful. [place] Jaclyn carey noticed fluid right elbow, went to walk in clinic, no change in medication. Was hot and swollen. Uric acid test normal. Has iced elbow and babied it. Hurts to lift up cell phone, pull on anything. 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 Not able to fully extend his elbow. Prior Treatments and Tests x-ray neg MRI: 1. Low to moderate grade lateral epicondylitis as above . 2. Low-grade distal triceps tendinosis. 3. Contusion involving proximal olecranon near distal triceps insertion. No fracture or dislocation. No osteochondral injuries. Treatment Goals Patient/Caregiver Goals decrease pain, be able to resume typical activities including golf PT-OP-C Subjective Start: 03/03/23 12:58 Freq: Status: Active Protocol: Document 03/17/23 14:25 [facility] (Rec: 03/17/23 15:38 [facility] [id number]) OP-PT Subjective Patient Comments Patient Comments gripping movements less painful, looser through forearm, tenderness posterior elbow joint PT-OP-E Functional Tests Start: 03/03/23 12:58 Freq: Status: Active Protocol: Document 03/03/23 12:59 [facility] (Rec: 03/03/23 13:23 [facility] [id number]) Functional Tests Modified Elderly Mobility Scale (MEMS) MEMS Impairment 60 to <80% Impaired (Score 5-8 ) PT-OP-J Posture/Palpation/Skin Start: 03/03/23 12:58 Freq: Status: Active Protocol: Document 03/03/23 12:59 [facility] (Rec: 03/04/23 18:02 [facility] [id number]) Posture Evaluation Position Sitting Head/C-Spine Posture Forward Head T-Spine Posture Increased Kyphosis Shoulder Posture (R) Rounded Scapula Posture (R) Protracted Arm Posture (R) Internally Rotated Palpation Assessment Location right elbow Palpation Location lateral epicondyle, extensor tendons Palpation Findings Edema,Soft Tissue Tightness, Muscle Guarding,Tenderness PT-OP-K Range of Motion Start: 03/03/23 12:58 Freq: Status: Active Protocol: Document 03/03/23 12:59 [facility] (Rec: 03/04/23 18:02 [facility] [id number]) Shoulder Goniometric Range of Motion Shoulder Right Shoulder ROM WFL No Flexion 142 Extension 15 Abduction 144 Horizontal Abduction 20 External Rotation at 0 degrees Abduction 45 Internal Rotation Behind Back (text) L5 Left Shoulder ROM WFL Yes Shoulder ROM Limitations Shoulder ROM Limitations Soft Tissue Tightness Elbow/Forearm Range of Motion Elbow/Forearm Right Elbow/Forearm ROM WFL No Elbow Flexion (degrees) 122 Elbow Extension (degrees) 22 Pronation (degrees) 58 Left Elbow/Forearm ROM WFL Yes Elbow/Forearm ROM Limitations Elbow/Forearm ROM Limitations Pain,Swelling Wrist Goniometric Range of Motion Wrist Right Wrist ROM WFL No Flexion Active (degrees) 40 Extension Active (degrees) 35 Left Wrist ROM WFL Yes ROM Limitations Wrist Limitations of Range of Motion Pain PT-OP-M Strength Start: 03/03/23 12:58 Freq: Status: Active Protocol: Document 03/03/23 12:59 [facility] (Rec: 03/04/23 18:02 [facility] [id number]) Elbow/Forearm Strength Elbow and Forearm Manual Muscle Testing Left Flexion (C6) 5 Normal Extension (C7) 5 Normal Pronation 5 Normal Supination 5 Normal Wrist Strength Wrist Manual Muscle Testing Right Flexion (C7) 3- Fair- Extension (C6) 3- Fair- Ulnar Deviation 3- Fair- Radial Deviation 3- Fair- Comments limited by pain Hand Ion Exchange Operator/Pinch Strength Hand Dominance Hand Dominance Right PT-OP-Q Treatments Start: 03/03/23 12:58 Freq: Status: Active Protocol: Document 03/17/23 14:25 [facility] (Rec: 03/17/23 15:38 [facility] [id number]) Therapeutic Exercises Prone Exercises prone T Resistance 2# Reps/Minutes 10x Sidelying Exercises open book Reps/Minutes 5x Sitting Exercises wrist ext Sitting Exercise Name HEP wrist flex Sitting Exercise Name HEP bicep curl Sitting Exercise Name HEP ball squeeze Sitting Exercise Name HEP forearm pron/sup Sitting Exercise Name HEP wrist extensor stretch Sitting Exercise Name HEP Manual Therapy Treatment Soft Tissue Mobilization right tricep Mobilization Type Myofascial Release,Strumming, Other Intensity/Depth Moderate Body Position Sitting Comments pin and stretch right forearm extensors Mobilization Type Myofascial Release,Strumming Intensity/Depth Moderate Body Position Sitting Joint Mobilizations ulnohumeral Direction distraction, inf glide Taping right elbow Body Location lateral Treatment Focus dec pain and swelling Type of Tape kinesio Skin Inspection intact Comments 2 fan strips with base posterior upper arm, tails crossing olecranon into post forearm Other Other Manual Treatments MWM oscillations end range elbow extension passive elbow flex Self-Care/Home Management Treatment Education Patient Education Home Exercise Program,Pain Management PT-OP-R Modalities Start: 03/03/23 12:58 Freq: Status: Active Protocol: Document 03/17/23 14:25 [facility] (Rec: 03/17/23 15:38 [facility] [id number]) Hot Pack/Cold Pack Treatment Cold Pack Location left elbow Patient Position Supine Patient Tolerance Good Ultrasound Therapy Treatment Right Elbow Patient Position Sitting Coupling Medium Ultrasound Gel Frequency Setting (mHz) 3 Mode Setting Pulsed Duty Cycle 50% Intensity Setting (w/cm2) 1 PT-OP-T Assessment and Plan Start: 03/03/23 12:58 Freq: Status: Active Protocol: Document 03/17/23 14:25 [facility] (Rec: 03/17/23 15:38 [facility] [id number]) Physical Therapy Assessment Impairments Impairments Activity Tolerance,Edema,Pain Goals Three Impairment activity tolerance Impairment Quickdash UE disability Index score 79% Short Term Goal (STG) decrease Quickdash score to no greater than 50% as measure of improved activity tolerance and function right UE STG Duration 04/04/23 Skilled Nursing Goal (LTG) decrease Quickdash score to no greater than 10% as measure of improved activity tolerance and function right UE LTG Duration 05/03/23 Two Impairment edema right elbow Skilled Nursing Goal (LTG) decrease right elbow edema to WNL LTG Duration 05/03/23 One Impairment right elbow pain as high as 8/ 10 Short Term Goal (STG) decrease elbow pain to no greater than 4/10 with all usual activities STG Duration 04/04/23 Pants Presser Goal (LTG) decrase elbow pain to no greater than 2/10 with all usual activities LTG Duration 05/03/23 Progress Towards Goals Progress Towards Goals Progressing Toward Goals Assessment Summary Assessment improved forearm extensor tissue extensibility, dec lateral elbow pain, now concentrated posterior. Appears to still have some swelling within joint, most painful closed pack position. Patient instrsucted to try to sleep with elbow in more neutral position instead of end-range flex. Physical Therapy Plan Frequency and Duration Frequency of Treatment 2x/Week Duration of treatment (weeks) 8 Plan of Care Start Date 03/03/23 Plan of Care End Date 05/02/23 Therapeutic Interventions Therapeutic Interventions Home Exercise Program,Manual Therapy,Patient/Caregiver Education,Self-Care/Home Management,Soft Tissue Mobilization,Taping, Therapeutic Activities, Therapeutic Exercises Modalities Cold Pack/Ice Massage,Electric Stimulation,Hot Packs, Infrared Therapy,Iontophoresis ,Ultrasound Next Visit Focus/Plan Next Note Type Treatment Note Next Visit Plan Continue deep tissue work, ultrasound, ice, and KT tape as indicated. Progress with wrist and elbow strengthening, posterior chain strengthening .
--- NOTE | 2023-03-19 10:36 | PT.OTN ---
Current Diagnoses Lateral epicondylitis, unspecified elbow (03/19/23) Physical Therapy Treatment Note PT-OP-A Visit Information Start: 03/03/23 12:58 Freq: Status: Active Protocol: Document 03/19/23 09:43 [facility] (Rec: 03/19/23 10:36 [facility] [id number]) Out-Patient Physical Therapy Visit Information Visit Information Visit Type Treatment Note Visit Start Time 09:43 Visit Stop Time 10:40 Visit Number 6 Evaluation Information Evaluation Date 03/03/23 PT-OP-B Current Condition Start: 03/03/23 12:58 Freq: Status: Active Protocol: Document 03/19/23 09:43 [facility] (Rec: 03/19/23 10:36 [facility] [id number]) Current Condition History of Current Condition Onset Date Mid November 2022 Current Complaints right elbow pain History of Current Condition Drove nonstop 14 hrs to [place], did a little heavy lifting while there. Dec 31 drove back nonstop, started noticing right elbow pain. Took some Ibuprofen. Saw Dr. Gerber, she increased Ibuprofen to 600 mg 2x/day, helpful. Rachael Zhaoe carey noticed fluid right elbow, went to walk in clinic, no change in medication. Was hot and swollen. Uric acid test normal. Has iced elbow and babied it. Hurts to lift up cell phone, pull on anything. 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 Not able to fully extend his elbow. Prior Treatments and Tests x-ray neg MRI: 1. Low to moderate grade lateral epicondylitis as above . 2. Low-grade distal triceps tendinosis. 3. Contusion involving proximal olecranon near distal triceps insertion. No fracture or dislocation. No osteochondral injuries. Treatment Goals Patient/Caregiver Goals decrease pain, be able to resume typical activities including golf PT-OP-C Subjective Start: 03/03/23 12:58 Freq: Status: Active Protocol: Document 03/19/23 09:43 [facility] (Rec: 03/19/23 10:36 [facility] [id number]) OP-PT Subjective Patient Comments Patient Comments Having less pain overall, more localized PT-OP-E Functional Tests Start: 03/03/23 12:58 Freq: Status: Active Protocol: Document 03/03/23 12:59 [facility] (Rec: 03/03/23 13:23 [facility] [id number]) Functional Tests Modified Elderly Mobility Scale (MEMS) MEMS Impairment 60 to <80% Impaired (Score 5-8 ) PT-OP-J Posture/Palpation/Skin Start: 03/03/23 12:58 Freq: Status: Active Protocol: Document 03/03/23 12:59 [facility] (Rec: 03/04/23 18:02 [facility] [id number]) Posture Evaluation Position Sitting Head/C-Spine Posture Forward Head T-Spine Posture Increased Kyphosis Shoulder Posture (R) Rounded Scapula Posture (R) Protracted Arm Posture (R) Internally Rotated Palpation Assessment Location right elbow Palpation Location lateral epicondyle, extensor tendons Palpation Findings Edema,Soft Tissue Tightness, Muscle Guarding,Tenderness PT-OP-K Range of Motion Start: 03/03/23 12:58 Freq: Status: Active Protocol: Document 03/03/23 12:59 [facility] (Rec: 03/04/23 18:02 [facility] [id number]) Shoulder Goniometric Range of Motion Shoulder Right Shoulder ROM WFL No Flexion 142 Extension 15 Abduction 144 Horizontal Abduction 20 External Rotation at 0 degrees Abduction 45 Internal Rotation Behind Back (text) L5 Left Shoulder ROM WFL Yes Shoulder ROM Limitations Shoulder ROM Limitations Soft Tissue Tightness Elbow/Forearm Range of Motion Elbow/Forearm Right Elbow/Forearm ROM WFL No Elbow Flexion (degrees) 122 Elbow Extension (degrees) 22 Pronation (degrees) 58 Left Elbow/Forearm ROM WFL Yes Elbow/Forearm ROM Limitations Elbow/Forearm ROM Limitations Pain,Swelling Wrist Goniometric Range of Motion Wrist Right Wrist ROM WFL No Flexion Active (degrees) 40 Extension Active (degrees) 35 Left Wrist ROM WFL Yes ROM Limitations Wrist Limitations of Range of Motion Pain PT-OP-M Strength Start: 03/03/23 12:58 Freq: Status: Active Protocol: Document 03/03/23 12:59 [facility] (Rec: 03/04/23 18:02 [facility] [id number]) Elbow/Forearm Strength Elbow and Forearm Manual Muscle Testing Left Flexion (C6) 5 Normal Extension (C7) 5 Normal Pronation 5 Normal Supination 5 Normal Wrist Strength Wrist Manual Muscle Testing Right Flexion (C7) 3- Fair- Extension (C6) 3- Fair- Ulnar Deviation 3- Fair- Radial Deviation 3- Fair- Comments limited by pain Hand Mother Repairer/Pinch Strength Hand Dominance Hand Dominance Right PT-OP-Q Treatments Start: 03/03/23 12:58 Freq: Status: Active Protocol: Document 03/19/23 09:43 [facility] (Rec: 03/19/23 10:36 [facility] [id number]) Manual Therapy Treatment Soft Tissue Mobilization right tricep Mobilization Type Myofascial Release,Strumming, Other Intensity/Depth Moderate Body Position Sitting Comments pin and stretch Joint Mobilizations ulnohumeral Direction distraction, inf glide Other Other Manual Treatments MWM oscillations end range elbow extension passive elbow flex Self-Care/Home Management Treatment Education Patient Education Home Exercise Program,Pain Management PT-OP-R Modalities Start: 03/03/23 12:58 Freq: Status: Active Protocol: Document 03/19/23 09:43 [facility] (Rec: 03/19/23 10:36 [facility] [id number]) Electric Stimulation Electric Stimulation Interferential Current (IFC) Body Location left elbow Intensity 17 Target/Sweep Sweep Patient Position Hooklying Combined With Heat/Cold Cold Pack Ultrasound Therapy Treatment Right Elbow Patient Position Sitting Coupling Medium Ultrasound Gel Frequency Setting (mHz) 3 Mode Setting Pulsed Duty Cycle 50% Intensity Setting (w/cm2) 1 PT-OP-T Assessment and Plan Start: 03/03/23 12:58 Freq: Status: Active Protocol: Document 03/19/23 09:43 [facility] (Rec: 03/19/23 10:36 [facility] [id number]) Physical Therapy Assessment Impairments Impairments Activity Tolerance,Edema,Pain Goals Three Impairment activity tolerance Impairment Quickdash UE disability Index score 79% Short Term Goal (STG) decrease Quickdash score to no greater than 50% as measure of improved activity tolerance and function right UE STG Duration 04/04/23 Runner On Goal (LTG) decrease Quickdash score to no greater than 10% as measure of improved activity tolerance and function right UE LTG Duration 05/03/23 Two Impairment edema right elbow Runner On Goal (LTG) decrease right elbow edema to WNL LTG Duration 05/03/23 One Impairment right elbow pain as high as 8/ 10 Short Term Goal (STG) decrease elbow pain to no greater than 4/10 with all usual activities STG Duration 04/04/23 Runner On Goal (LTG) decrase elbow pain to no greater than 2/10 with all usual activities LTG Duration 05/03/23 Assessment Summary Assessment Pain and swelling decreasing and localizing posterior right elbow. Patient working to not put pressure on elbow, do gentle ex as instructed. Physical Therapy Plan Frequency and Duration Frequency of Treatment 2x/Week Duration of treatment (weeks) 8 Plan of Care Start Date 03/03/23 Plan of Care End Date 05/02/23 Therapeutic Interventions Therapeutic Interventions Home Exercise Program,Manual Therapy,Patient/Caregiver Education,Self-Care/Home Management,Soft Tissue Mobilization,Taping, Therapeutic Activities, Therapeutic Exercises Modalities Cold Pack/Ice Massage,Electric Stimulation,Hot Packs, Infrared Therapy,Iontophoresis ,Ultrasound
--- NOTE | 2023-03-31 11:06 | PT.OTN ---
Current Diagnoses Lateral epicondylitis, unspecified elbow (03/31/23) Physical Therapy Treatment Note PT-OP-A Visit Information Start: 03/03/23 12:58 Freq: Status: Active Protocol: Document 03/31/23 08:14 AB (Rec: 03/31/23 11:06 AB [id number]) Out-Patient Physical Therapy Visit Information Visit Information Visit Start Time 09:52 Visit Stop Time 10:29 Visit Number 1 PT-OP-B Current Condition Start: 03/03/23 12:58 Freq: Status: Active Protocol: Document 03/19/23 09:43 SAK (Rec: 03/19/23 10:36 SAK [id number]) Current Condition History of Current Condition Onset Date Mid November 2022 Current Complaints right elbow pain History of Current Condition Drove nonstop 14 hrs to [place], did a little heavy lifting while there. Dec 31 drove back nonstop, started noticing right elbow pain. Took some Ibuprofen. Saw Dr. Gerber, she increased Ibuprofen to 600 mg 2x/day, helpful. Rachael Anaya day noticed fluid right elbow, went to walk in clinic, no change in medication. Was hot and swollen. Uric acid test normal. Has iced elbow and babied it. Hurts to lift up cell phone, pull on anything. 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 Not able to fully extend his elbow. Prior Treatments and Tests x-ray neg MRI: 1. Low to moderate grade lateral epicondylitis as above . 2. Low-grade distal triceps tendinosis. 3. Contusion involving proximal olecranon near distal triceps insertion. No fracture or dislocation. No osteochondral injuries. Treatment Goals Patient/Caregiver Goals decrease pain, be able to resume typical activities including golf PT-OP-C Subjective Start: 03/03/23 12:58 Freq: Status: Active Protocol: Document 03/31/23 08:14 AB (Rec: 03/31/23 11:06 AB [id number]) OP-PT Subjective Patient Comments Patient Comments Patient reports that after eating Tuna twice 2 days ago and woke up with increased right elbow and thumb pain. Patient questioning if he has gout, comments that there are 2 kinds of gout, and he did test neg ~ a week after Rachael Anaya. Pt. reports not preforming HEP due to issue with tooth. PT-OP-E Functional Tests Start: 03/03/23 12:58 Freq: Status: Active Protocol: Document 03/03/23 12:59 [facility] (Rec: 03/03/23 13:23 [facility] [id number]) Functional Tests Modified Elderly Mobility Scale (MEMS) MEMS Impairment 60 to <80% Impaired (Score 5-8 ) PT-OP-J Posture/Palpation/Skin Start: 03/03/23 12:58 Freq: Status: Active Protocol: Document 03/03/23 12:59 [facility] (Rec: 03/04/23 18:02 [facility] [id number]) Posture Evaluation Position Sitting Head/C-Spine Posture Forward Head T-Spine Posture Increased Kyphosis Shoulder Posture (R) Rounded Scapula Posture (R) Protracted Arm Posture (R) Internally Rotated Palpation Assessment Location right elbow Palpation Location lateral epicondyle, extensor tendons Palpation Findings Edema,Soft Tissue Tightness, Muscle Guarding,Tenderness PT-OP-K Range of Motion Start: 03/03/23 12:58 Freq: Status: Active Protocol: Document 03/03/23 12:59 [facility] (Rec: 03/04/23 18:02 [facility] [id number]) Shoulder Goniometric Range of Motion Shoulder Right Shoulder ROM WFL No Flexion 142 Extension 15 Abduction 144 Horizontal Abduction 20 External Rotation at 0 degrees Abduction 45 Internal Rotation Behind Back (text) L5 Left Shoulder ROM WFL Yes Shoulder ROM Limitations Shoulder ROM Limitations Soft Tissue Tightness Elbow/Forearm Range of Motion Elbow/Forearm Right Elbow/Forearm ROM WFL No Elbow Flexion (degrees) 122 Elbow Extension (degrees) 22 Pronation (degrees) 58 Left Elbow/Forearm ROM WFL Yes Elbow/Forearm ROM Limitations Elbow/Forearm ROM Limitations Pain,Swelling Wrist Goniometric Range of Motion Wrist Right Wrist ROM WFL No Flexion Active (degrees) 40 Extension Active (degrees) 35 Left Wrist ROM WFL Yes ROM Limitations Wrist Limitations of Range of Motion Pain PT-OP-M Strength Start: 03/03/23 12:58 Freq: Status: Active Protocol: Document 03/03/23 12:59 [facility] (Rec: 03/04/23 18:02 [facility] [id number]) Elbow/Forearm Strength Elbow and Forearm Manual Muscle Testing Left Flexion (C6) 5 Normal Extension (C7) 5 Normal Pronation 5 Normal Supination 5 Normal Wrist Strength Wrist Manual Muscle Testing Right Flexion (C7) 3- Fair- Extension (C6) 3- Fair- Ulnar Deviation 3- Fair- Radial Deviation 3- Fair- Comments limited by pain Hand Molding Supervisor/Pinch Strength Hand Dominance Hand Dominance Right PT-OP-Q Treatments Start: 03/03/23 12:58 Freq: Status: Active Protocol: Document 03/31/23 08:14 AB (Rec: 03/31/23 11:06 AB [id number]) Therapeutic Exercises Supine Exercises chest wastewater superintendent/pec stretch Supine Exercise Name on soft foam roller Side bilateral Reps/Minutes 3 min Comments Verbal cues for positioning and breathing from diaphragm Sitting Exercises wrist ext Side right Reps/Minutes X10 Comments post manual therapy and stretch wrist flex Side right Reps/Minutes X10 Comments post manual therapy and stretch forearm pron/sup Sitting Exercise Name supination only AROM Reps/Minutes X10 eccentric wrist extensor Reps/Minutes X10 slowly wrist extensor stretch Sitting Exercise Name wrist extensor and flexorpost manual therapy Side right Resistance manual by patient Reps/Minutes one one min Manual Therapy Treatment Soft Tissue Mobilization right pec Body Location right pec Mobilization Type Rolling,Other Intensity/Depth Superficial Body Position Hooklying Comments Monitored for pain, performed prior to pec stretch right tricep Body Location right tricep/bicep Mobilization Type Manual Lymphatic Drainage, Myofascial Release,Rolling, Other Intensity/Depth Moderate right forearm extensors Body Location extensors and flexors Mobilization Type Cross-Friction,Rolling, Sustained Pressure Intensity/Depth Moderate Body Position Hooklying Comments hooklying and sidelying monitored for pain Joint Mobilizations right elbow MWM lateral glide Joint right elbow Direction lat Grade II Body Position Hooklying Reps/Duration X8 Comments with gripping, monitored for pain increase/decrease PT-OP-R Modalities Start: 03/03/23 12:58 Freq: Status: Active Protocol: Document 03/19/23 09:43 SAK (Rec: 03/19/23 10:36 SAK [id number]) Electric Stimulation Electric Stimulation Interferential Current (IFC) Body Location left elbow Intensity 17 Target/Sweep Sweep Patient Position Hooklying Combined With Heat/Cold Cold Pack Ultrasound Therapy Treatment Right Elbow Patient Position Sitting Coupling Medium Ultrasound Gel Frequency Setting (mHz) 3 Mode Setting Pulsed Duty Cycle 50% Intensity Setting (w/cm2) 1 PT-OP-T Assessment and Plan Start: 03/03/23 12:58 Freq: Status: Active Protocol: Document 03/31/23 08:14 AB (Rec: 03/31/23 11:06 AB [id number]) Physical Therapy Assessment Goals Three Impairment activity tolerance Impairment Quickdash UE disability Index score 79% Short Term Goal (STG) decrease Quickdash score to no greater than 50% as measure of improved activity tolerance and function right UE STG Duration 04/04/23 Laser/Electro Optics Technician Goal (LTG) decrease Quickdash score to no greater than 10% as measure of improved activity tolerance and function right UE LTG Duration 05/03/23 Two Impairment edema right elbow Custodial Goal (LTG) decrease right elbow edema to WNL LTG Duration 05/03/23 One Impairment right elbow pain as high as 8/ 10 Short Term Goal (STG) decrease elbow pain to no greater than 4/10 with all usual activities STG Duration 04/04/23 Custodial Goal (LTG) decrase elbow pain to no greater than 2/10 with all usual activities LTG Duration 05/03/23 Assessment Summary Assessment Fred gestured to right forearm commenting the arm feels more activated, reports no change in medial elbow pain with gripping, Review of wrist exercises without addition to HEP as patient reports not performing HEP due to issue with tooth. Patient late and reported unable to stay late. Physical Therapy Plan Frequency and Duration Frequency of Treatment 2x/Week Duration of treatment (weeks) 8 Plan of Care Start Date 03/03/23 Plan of Care End Date 05/02/23 Next Visit Focus/Plan Next Note Type Treatment Note Next Visit Plan Continue deep tissue work, ultrasound, ice, and KT tape as indicated. Progress with wrist and elbow strengthening/ possibly supination with weight. posterior chain strengthening/possibly side sit to upright vs chair push up/ wall push up plus
--- NOTE | 2023-04-10 11:15 | PT.OTN ---
Current Diagnoses Lateral epicondylitis, unspecified elbow (04/10/23) Physical Therapy Treatment Note PT-OP-A Visit Information Start: 03/03/23 12:58 Freq: Status: Active Protocol: Document 04/10/23 11:18 SAK (Rec: 04/10/23 12:03 [facility] [id number]) Out-Patient Physical Therapy Visit Information Visit Information Visit Type Treatment Note Visit Start Time 11:16 Visit Stop Time 12:10 Visit Number 8 Evaluation Information Evaluation Date 03/03/23 PT-OP-B Current Condition Start: 03/03/23 12:58 Freq: Status: Active Protocol: Document 04/10/23 11:18 SAK (Rec: 04/10/23 12:03 [facility] [id number]) Current Condition History of Current Condition Onset Date Mid November 2022 Current Complaints right elbow pain History of Current Condition Drove nonstop 14 hrs to [place], did a little heavy lifting while there. Dec 31 drove back nonstop, started noticing right elbow pain. Took some Ibuprofen. Saw Dr. Gerber, she increased Ibuprofen to 600 mg 2x/day, helpful. Rachael Anaya carey noticed fluid right elbow, went to walk in clinic, no change in medication. Was hot and swollen. Uric acid test normal. Has iced elbow and babied it. Hurts to lift up cell phone, pull on anything. 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 Not able to fully extend his elbow. Prior Treatments and Tests x-ray neg MRI: 1. Low to moderate grade lateral epicondylitis as above . 2. Low-grade distal triceps tendinosis. 3. Contusion involving proximal olecranon near distal triceps insertion. No fracture or dislocation. No osteochondral injuries. PT-OP-C Subjective Start: 03/03/23 12:58 Freq: Status: Active Protocol: Document 04/10/23 11:18 SAK (Rec: 04/10/23 12:03 SAK [id number]) OP-PT Subjective Patient Comments Patient Comments Thinking gout, took some gout medication and reports pain faded. Then did some home repair work, using plyers and felt a little pop, so now feels like he set the elbow back a few weeks. See doctor next week 04/15/23. Has a few more gout pills left. Has been doing some exercises. Thinks what this PT did with his shoulder blade last when last seen was helpful. PT-OP-E Functional Tests Start: 03/03/23 12:58 Freq: Status: Active Protocol: Document 03/03/23 12:59 [facility] (Rec: 03/03/23 13:23 [facility] [id number]) Functional Tests Modified Elderly Mobility Scale (MEMS) MEMS Impairment 60 to <80% Impaired (Score 5-8 ) PT-OP-J Posture/Palpation/Skin Start: 03/03/23 12:58 Freq: Status: Active Protocol: Document 03/03/23 12:59 [facility] (Rec: 03/04/23 18:02 [facility] [id number]) Posture Evaluation Position Sitting Head/C-Spine Posture Forward Head T-Spine Posture Increased Kyphosis Shoulder Posture (R) Rounded Scapula Posture (R) Protracted Arm Posture (R) Internally Rotated Palpation Assessment Location right elbow Palpation Location lateral epicondyle, extensor tendons Palpation Findings Edema,Soft Tissue Tightness, Muscle Guarding,Tenderness PT-OP-K Range of Motion Start: 03/03/23 12:58 Freq: Status: Active Protocol: Document 03/03/23 12:59 [facility] (Rec: 03/04/23 18:02 [facility] [id number]) Shoulder Goniometric Range of Motion Shoulder Right Shoulder ROM WFL No Flexion 142 Extension 15 Abduction 144 Horizontal Abduction 20 External Rotation at 0 degrees Abduction 45 Internal Rotation Behind Back (text) L5 Left Shoulder ROM WFL Yes Shoulder ROM Limitations Shoulder ROM Limitations Soft Tissue Tightness Elbow/Forearm Range of Motion Elbow/Forearm Right Elbow/Forearm ROM WFL No Elbow Flexion (degrees) 122 Elbow Extension (degrees) 22 Pronation (degrees) 58 Left Elbow/Forearm ROM WFL Yes Elbow/Forearm ROM Limitations Elbow/Forearm ROM Limitations Pain,Swelling Wrist Goniometric Range of Motion Wrist Right Wrist ROM WFL No Flexion Active (degrees) 40 Extension Active (degrees) 35 Left Wrist ROM WFL Yes ROM Limitations Wrist Limitations of Range of Motion Pain PT-OP-M Strength Start: 03/03/23 12:58 Freq: Status: Active Protocol: Document 03/03/23 12:59 [facility] (Rec: 03/04/23 18:02 [facility] [id number]) Elbow/Forearm Strength Elbow and Forearm Manual Muscle Testing Left Flexion (C6) 5 Normal Extension (C7) 5 Normal Pronation 5 Normal Supination 5 Normal Wrist Strength Wrist Manual Muscle Testing Right Flexion (C7) 3- Fair- Extension (C6) 3- Fair- Ulnar Deviation 3- Fair- Radial Deviation 3- Fair- Comments limited by pain Hand Fire Prevention Bureau Captain/Pinch Strength Hand Dominance Hand Dominance Right PT-OP-Q Treatments Start: 03/03/23 12:58 Freq: Status: Active Protocol: Document 04/10/23 11:18 [facility] (Rec: 04/10/23 12:03 [facility] [id number]) Therapeutic Exercises Supine Exercises chest insurance administrator/pec stretch Supine Exercise Name on soft foam roller Side bilateral Reps/Minutes 3 min Comments Verbal cues for positioning and breathing from diaphragm Sitting Exercises wrist ext Side right Reps/Minutes X10 Comments post manual therapy and stretch wrist flex Side right Reps/Minutes X10 Comments post manual therapy and stretch ball squeeze Equipment Used putty (yellow) Reps/Minutes 10x Comments submax, painfree intensity wrist extensor stretch Sitting Exercise Name wrist extensor and flexorpost manual therapy Side right Resistance manual by patient Reps/Minutes one one min Manual Therapy Treatment Soft Tissue Mobilization right pec Body Location right pec Mobilization Type Rolling,Other Intensity/Depth Superficial Body Position Hooklying Comments Monitored for pain, performed prior to pec stretch right tricep Body Location right tricep/bicep Mobilization Type Manual Lymphatic Drainage, Myofascial Release,Rolling, Other Intensity/Depth Moderate right forearm extensors Body Location extensors and flexors Mobilization Type Cross-Friction,Rolling, Sustained Pressure Intensity/Depth Moderate Body Position Hooklying Comments hooklying and sidelying monitored for pain Joint Mobilizations scap Direction sup/inf/med/lat Grade III Body Position Sidelying PT-OP-R Modalities Start: 03/03/23 12:58 Freq: Status: Active Protocol: Document 04/10/23 11:18 [facility] (Rec: 04/10/23 12:03 [facility] [id number]) Electric Stimulation Electric Stimulation Interferential Current (IFC) Body Location left elbow Intensity 17 Target/Sweep Sweep Patient Position Hooklying Combined With Heat/Cold Cold Pack PT-OP-T Assessment and Plan Start: 03/03/23 12:58 Freq: Status: Active Protocol: Document 04/10/23 11:18 [facility] (Rec: 04/10/23 12:03 [facility] [id number]) Physical Therapy Assessment Goals Three Impairment activity tolerance Impairment Quickdash UE disability Index score 79% Short Term Goal (STG) decrease Quickdash score to no greater than 50% as measure of improved activity tolerance and function right UE STG Duration 04/04/23 Halfway Goal (LTG) decrease Quickdash score to no greater than 10% as measure of improved activity tolerance and function right UE LTG Duration 05/03/23 Two Impairment edema right elbow Halfway Goal (LTG) decrease right elbow edema to WNL LTG Duration 05/03/23 One Impairment right elbow pain as high as 8/ 10 Short Term Goal (STG) decrease elbow pain to no greater than 4/10 with all usual activities STG Duration 04/04/23 Choir Director Goal (LTG) decrase elbow pain to no greater than 2/10 with all usual activities LTG Duration 05/03/23 Assessment Summary Assessment Patient to see physician regarding potential gout in elbow. Decreased soft tissue tightness noted in forearm and scap. Reviewed bulk plant agent ex with submax painfree effort. Ended with IFES and ice to dec pain and post ex inflamm. Physical Therapy Plan Frequency and Duration Frequency of Treatment 2x/Week Duration of treatment (weeks) 8 Plan of Care Start Date 03/03/23 Plan of Care End Date 05/02/23 Next Visit Focus/Plan Next Note Type Treatment Note Next Visit Plan Continue deep tissue work, ultrasound, ice, IFES and KT tape as indicated. Progress with wrist and elbow strengthening/possibly supination with weight. posterior chain strengthening/ possibly side sit to upright vs chair push up/ wall push up plus
--- NOTE | 2023-05-15 10:04 | PT-OP ANOTE ---
LVM to check on patient, ask whether needed to make more PT appointments or ready for discharge.
--- NOTE | 2024-06-08 09:36 | PT.OPDS ---
Current Diagnoses Lateral epicondylitis, unspecified elbow (04/10/23) Visit Care Team Role Provider Type Jaleel Santos MD Family Provider Physician Primary Care Provider Specialty: Family Practice Address: [address] [place] [address], [id number] Email: [email or web address] Gerber DO Attending Provider Physician Referring Provider Specialty: Medical Address: [address] [place] [address], [address], [place], [address] Email: [email or web address] Visit Number Visit Number 8 Discharge Summary PT-OP-B Current Condition Start: 03/03/23 12:58 Freq: Status: Active Protocol: Document 04/10/23 11:18 SAK (Rec: 04/10/23 12:03 SAK [id number]) Current Condition History of Current Condition Onset Date Mid November 2022 Current Complaints right elbow pain History of Current Condition Drove nonstop 14 hrs to [place], did a little heavy lifting while there. Dec 31 drove back nonstop, started noticing right elbow pain. Took some Ibuprofen. Saw Dr. Gerber, she increased Ibuprofen to 600 mg 2x/day, helpful. Rachael Anaya carey noticed fluid right elbow, went to walk in clinic, no change in medication. Was hot and swollen. Uric acid test normal. Has iced elbow and babied it. Hurts to lift up cell phone, pull on anything. 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 Not able to fully extend his elbow. Prior Treatments and Tests x-ray neg MRI: 1. Low to moderate grade lateral epicondylitis as above . 2. Low-grade distal triceps tendinosis. 3. Contusion involving proximal olecranon near distal triceps insertion. No fracture or dislocation. No osteochondral injuries. PT-OP-C Subjective Start: 03/03/23 12:58 Freq: Status: Active Protocol: Document 04/10/23 11:18 SAK (Rec: 04/10/23 12:03 SAK [id number]) OP-PT Subjective Patient Comments Patient Comments Thinking gout, took some gout medication and reports pain faded. Then did some home repair work, using plyers and felt a little pop, so now feels like he set the elbow back a few weeks. See doctor next week 04/15/23. Has a few more gout pills left. Has been doing some exercises. Thinks what this PT did with his shoulder blade last when last seen was helpful. PT-OP-E Functional Tests Start: 03/03/23 12:58 Freq: Status: Active Protocol: Document 03/03/23 12:59 [facility] (Rec: 03/03/23 13:23 [facility] [id number]) Functional Tests Modified Elderly Mobility Scale (MEMS) MEMS Impairment 60 to <80% Impaired (Score 5-8 ) PT-OP-J Posture/Palpation/Skin Start: 03/03/23 12:58 Freq: Status: Active Protocol: Document 03/03/23 12:59 [facility] (Rec: 03/04/23 18:02 [facility] [id number]) Posture Evaluation Position Sitting Head/C-Spine Posture Forward Head T-Spine Posture Increased Kyphosis Shoulder Posture (R) Rounded Scapula Posture (R) Protracted Arm Posture (R) Internally Rotated Palpation Assessment Location right elbow Palpation Location lateral epicondyle, extensor tendons Palpation Findings Edema,Soft Tissue Tightness, Muscle Guarding,Tenderness PT-OP-K Range of Motion Start: 03/03/23 12:58 Freq: Status: Active Protocol: Document 03/03/23 12:59 [facility] (Rec: 03/04/23 18:02 [facility] [id number]) Shoulder Goniometric Range of Motion Shoulder Right Shoulder ROM WFL No Flexion 142 Extension 15 Abduction 144 Horizontal Abduction 20 External Rotation at 0 degrees Abduction 45 Internal Rotation Behind Back (text) L5 Left Shoulder ROM WFL Yes Shoulder ROM Limitations Shoulder ROM Limitations Soft Tissue Tightness Elbow/Forearm Range of Motion Elbow/Forearm Right Elbow/Forearm ROM WFL No Elbow Flexion (degrees) 122 Elbow Extension (degrees) 22 Pronation (degrees) 58 Left Elbow/Forearm ROM WFL Yes Elbow/Forearm ROM Limitations Elbow/Forearm ROM Limitations Pain,Swelling Wrist Goniometric Range of Motion Wrist Right Wrist ROM WFL No Flexion Active (degrees) 40 Extension Active (degrees) 35 Left Wrist ROM WFL Yes ROM Limitations Wrist Limitations of Range of Motion Pain PT-OP-M Strength Start: 03/03/23 12:58 Freq: Status: Active Protocol: Document 03/03/23 12:59 [facility] (Rec: 03/04/23 18:02 [facility] [id number]) Elbow/Forearm Strength Elbow and Forearm Manual Muscle Testing Left Flexion (C6) 5 Normal Extension (C7) 5 Normal Pronation 5 Normal Supination 5 Normal Wrist Strength Wrist Manual Muscle Testing Right Flexion (C7) 3- Fair- Extension (C6) 3- Fair- Ulnar Deviation 3- Fair- Radial Deviation 3- Fair- Comments limited by pain Hand Auditor In Charge/Pinch Strength Hand Dominance Hand Dominance Right PT-OP-T Assessment and Plan Start: 03/03/23 12:58 Freq: Status: Active Protocol: Document 06/08/24 09:36 [facility] (Rec: 06/08/24 09:36 [facility] Laptop) Physical Therapy Plan Discharge Physical Therapy Discharge Reasons No Longer Attending PT
== END | disposition home or self-care (01) ==
LOC: PHYS 03-03 12:52
PROVIDERS: Family Provider Family Medicine; PCP Family Medicine; Referring Provider Family Medicine; Visit Provider Family Medicine
DX: M77.10 Lateral epicondylitis, unspecified elbow (principal)
CPT/HCPCS: 97014; 97032; 97035; 97110; 97140; 97162; 97535; G0283

== ENCOUNTER → 2024-06-14 14:41 | Outpatient (CLI) | payer MEDICARE, OTHER, SELFPAY ==
--- NOTE | 2024-06-14 14:43 | DI.RAD.S_ITS ---
PROCEDURE: XR SHOULDER LT 3 VIEWS INDICATIONS: left shoulder pain TECHNIQUE: 3 views of the shoulder were acquired. COMPARISON: None. FINDINGS: Moderate to severe degenerative changes of the left acromioclavicular joint with joint space narrowing, osteophytes and flattening of the joint surfaces. Moderate degenerative changes left glenohumeral joint. No radiographic evidence of displaced fracture, dislocation, abnormal calcification or soft tissue foreign body. Degenerative changes of the cervical, thoracic spine partially imaged. Left lung is not well evaluated on this shoulder exam. IMPRESSION: Degenerative changes as discussed above. If symptoms persist or worsen, or there is high clinical suspicion of left shoulder abnormality, MRI could be performed. Dictated by: Nam Carcamo M.D. on 06/14/2024 at 22:49 Approved by: Nam Carcamo M.D. on 06/14/2024 at 22:51
== END ==
PROVIDERS: Family Provider Family Medicine; PCP Family Medicine; Referring Provider Family Medicine; Visit Provider Family Medicine
DX: M25.512 Pain in left shoulder (principal)
CPT/HCPCS: 73030

== ENCOUNTER → 2024-06-17 08:04 | Outpatient (CLI) | payer MEDICARE, OTHER, SELFPAY ==
[2024-06-17 08:53] LABS: Add Manual Diff / Slide Review NO; Basophils Absolute Auto 0 /uL (0-100); Basophils Percent Auto 0.6 % (0-2); Eosinophils Absolute Auto 200 /uL (0-450); Eosinophils Percent Auto 3.1 % (2-4); Hematocrit 49.6 % (41-53); Hemoglobin 16.5 g/dL (13.5-17.5); Lymphocytes Absolute Auto 1800 /uL (1100-4500); Lymphocytes Percent Auto 29.9 % (25-40); Mean Corpuscular HGB Conc 33.3 % (30-36); Mean Corpuscular Hemoglobin 28.5 PG (26-34); Mean Corpuscular Volume 85.6 fL (80-100); Monocytes Absolute Auto 600 /uL (0-900); Monocytes Percent Auto 9.6 % (3-14); Neutrophils Absolute Auto 3500 /uL (1500-7000); Neutrophils Percent Auto 56.8 % (50-75); Platelet Count 176 X10^3/uL (150-400); Red Blood Cell Count 5.79 X10^6/uL (4.5-5.9); Red Cell Distribution Width 16.5 % (11.6-14.8); White Blood Cell Count 6.1 X10^3/uL (4.5-11.0)
[2024-06-17 09:25] LABS: HEMOLYSIS < 15 (0-50); Iron 95 ug/dL (49-181)
[2024-06-17 09:29] LABS: Alanine Aminotransferase 34 IU/L (<50); Albumin 4.6 g/dL (3.5-5.0); Albumin Globulin Ratio 1.8 (1.0-2.8); Alkaline Phosphatase 59 U/L (38-126); Aspartate Aminotransferase 34 IU/L (17-59); BUN Creatinine Ratio 19.3 (6-22); Bilirubin Total 0.9 mg/dL (0.2-1.3); Blood Urea Nitrogen 27 mg/dL (9-20); Calcium 9.2 mg/dL (8.4-10.2); Carbon Dioxide 28 mmol/L (22-32); Chloride 102 mmol/L (98-107); Cholesterol 136 mg/dL (140-199); Estimated Glomerular Filt Rate 53 mL/min (>60); Globulin 2.5 g/dL (1.7-4.1); Glucose 95 mg/dL (70-99); HDL Cholesterol 49 mg/dL (40-60); HEMOLYSIS < 15 (0-50); LDL Cholesterol Calculated 63 mg/dL (<100); Potassium 4.7 mmol/L (3.4-5.1); Sodium 138 mmol/L (137-145); Total Protein 7.1 g/dL (6.3-8.2); Triglycerides 121 mg/dL (35-150); Uric Acid 5.7 mg/dL (3.5-8.5)
[2024-06-17 09:35] LABS: Percent Iron Saturation 24 % (20-50); Total Iron Binding Capacity 399 ug/dL (261-462); Transferrin 324 mg/dL (206-381)
[2024-06-17 09:50] LABS: Vitamin D 25 Hydroxy (D3) 39.9 ng/mL (30.0-100.0)
[2024-06-17 10:02] LABS: Ferritin 11 ng/mL (18-464)
[2024-06-17 10:06] LABS: Estradiol, Total 32.8 pg/mL
[2024-06-17 10:35] LABS: Folate 8.4 ng/mL (2.76-20.0); Vitamin B12 476 pg/mL (239-931)
[2024-06-18 04:11] LABS: Apolipoprotein B 60 mg/dL (<90)
== END ==
PROVIDERS: Family Provider Family Medicine; PCP Family Medicine; Referring Provider Family Medicine; Visit Provider Family Medicine
DX: R79.89 Other specified abnormal findings of blood chemistry (principal); Z78.9 Other specified health status; E78.5 Hyperlipidemia, unspecified; D64.9 Anemia, unspecified; D75.1 Secondary polycythemia; E79.0 Hyperuricemia without signs of inflammatory arthritis and tophaceous disease
CPT/HCPCS: 36415; 80053; 80061; 82172; 82306; 82607; 82670; 82728; 82746; 83540; 83550; 84402; 84403; 84550; 85025

== ENCOUNTER → 2024-07-03 14:19 | Outpatient (CLI) | payer MEDICARE, OTHER, SELFPAY ==
--- NOTE | 2024-07-03 14:20 | DI.MRI.S_ITS ---
PROCEDURE: MR CERVICAL SPINE WO CON INDICATIONS: pain TECHNIQUE: Noncontrast sagittal T1 spin echo and T2 fast spin echo, sagittal STIR, foraminal oblique sagittal T2 fast spin echo, and axial gradient echo or T2 fast spin echo through the cervical spine. COMPARISON: None. FINDINGS: Image quality: Excellent. Alignment and Curvature: There is normal bony alignment. Bone Marrow: Marrow demonstrates normal overall signal. Spinal Cord: Visualized spinal cord has normal size and signal. No cerebellar tonsillar herniation. Paraspinous Soft Tissues: No paravertebral masses. Prevertebral soft tissues are normal in thickness. C2-C3: Loss of disc signal. Mild, diffuse disc bulge. Mild bilateral facet hypertrophy. No central stenosis. Mild right and moderate left neural foraminal narrowing. No neural compression. C3-C4: Loss of disc signal. Mild left facet hypertrophy. No central stenosis. Severe left neural foraminal narrowing with compression of the exiting left C4 nerve root. No neural compression. C4-C5: Loss of disc signal. Mild, diffuse disc bulge. Mild left facet hypertrophy. Moderate bilateral uncovertebral joint hypertrophy. Mild narrowing of the central canal. Moderate right and severe left neural foraminal narrowing with compression of the exiting left C5 nerve root. C5-C6: Loss of disc signal. Mild to moderate diffuse disc bulge. Mild left facet hypertrophy. Mild bilateral uncovertebral joint hypertrophy. Mild narrowing of the central canal. Severe bilateral neural foraminal narrowing with compression of the exiting C6 nerve roots. C6-C7: Loss of disc signal. Mild bilateral facet hypertrophy. Mild bilateral uncovertebral joint hypertrophy. Moderate bilateral neural foraminal narrowing. No neural compression. C7-T1: Loss of disc signal. No central stenosis. No neural foraminal narrowing. No neural compression. IMPRESSION: Multilevel degenerative disc disease. Multilevel facet and uncovertebral arthropathy. No severe central canal stenosis. Severe left C3-C4 and C4-C5 neural foraminal stenosis with compression of the left C4 and C5 nerve roots. Severe bilateral C5-C6 neural foraminal stenosis with compression of the bilateral C6 nerve roots. Dictated by: Marisol Rosario MD, PhD on 07/06/2024 at 9:17 Approved by: Marisol Rosario MD, PhD on 07/06/2024 at 9:23
--- NOTE | 2024-07-03 14:20 | DI.MRI.S_ITS ---
PROCEDURE: MR SHOULDER LT WO CON INDICATIONS: pain TECHNIQUE: Noncontrast oblique coronal T2 fast spin echo with fat saturation, oblique sagittal T1 spin echo and T2 fast spin echo with fat saturation, axial T1 spin echo and T2 fast spin echo with fat saturation through the shoulder. COMPARISON: None. FINDINGS: Image quality: Excellent. Rotator cuff: There is a partial tear involving the articular surface of the supraspinatus tendon near its insertion. The infraspinatus tendon is intact. The subscapularis tendon is intact. Bones and bursae: There is fluid in the subacromial subdeltoid bursa most likely representing a synovitis. There is moderately advanced degenerative changes involving the acromioclavicular joint. The coracohumeral ligament is probably torn.. Capsule and soft tissues: There is abnormal signal involving the superior anterior portion of the labrum suggestive of a tear. Anteriorly to this area there is a paralabral cyst and fluid within the rotator cuff interval. There is fluid interposed in the area of the glenohumeral ligaments possibly torn. There is trace fluid adjacent to the biceps tendon within its groove. There is subchondral cyst and marrow edema involving the greater tuberosity. IMPRESSION: At least partial tear involving the supraspinatus tendon at its insertion. Labral tear with paralabral cyst. Subacromial synovitis. Suspect tear involving the glenohumeral ligament. Moderate degenerative joint disease involving the acromioclavicular joint. Dictated by: Lupe Dorsey M.D. on 07/06/2024 at 9:46 Approved by: Lupe Dorsey M.D. on 07/06/2024 at 9:59
== END ==
PROVIDERS: Family Provider Family Medicine; PCP Family Medicine; Referring Provider Orthopaedic Surgery; Visit Provider Orthopaedic Surgery
DX: M25.512 Pain in left shoulder (principal); M19.012 Primary osteoarthritis, left shoulder; S46.812A Strain of other muscles, fascia and tendons at shoulder and upper arm level, left arm, initial encounter; M25.812 Other specified joint disorders, left shoulder; M65.912 Unspecified synovitis and tenosynovitis, left shoulder; M50.30 Other cervical disc degeneration, unspecified cervical region; M47.812 Spondylosis without myelopathy or radiculopathy, cervical region; M48.02 Spinal stenosis, cervical region
CPT/HCPCS: 72141; 73221

== ENCOUNTER → 2024-07-16 11:04 | Outpatient (CLI) | payer MEDICARE, OTHER, SELFPAY ==
[2024-07-16 11:48] LABS: Add Manual Diff / Slide Review NO; Basophils Absolute Auto 0 /uL (0-100); Basophils Percent Auto 0.5 % (0-2); Eosinophils Absolute Auto 100 /uL (0-450); Eosinophils Percent Auto 2.3 % (2-4); Hematocrit 49.5 % (41-53); Hemoglobin 16.4 g/dL (13.5-17.5); Lymphocytes Absolute Auto 1700 /uL (1100-4500); Lymphocytes Percent Auto 31.7 % (25-40); Mean Corpuscular HGB Conc 33.1 % (30-36); Mean Corpuscular Hemoglobin 28.7 PG (26-34); Mean Corpuscular Volume 86.6 fL (80-100); Monocytes Absolute Auto 500 /uL (0-900); Monocytes Percent Auto 10.2 % (3-14); Neutrophils Absolute Auto 2900 /uL (1500-7000); Neutrophils Percent Auto 55.3 % (50-75); Platelet Count 171 X10^3/uL (150-400); Red Blood Cell Count 5.72 X10^6/uL (4.5-5.9); Red Cell Distribution Width 16.9 % (11.6-14.8); White Blood Cell Count 5.3 X10^3/uL (4.5-11.0)
[2024-07-16 12:10] LABS: HEMOLYSIS < 15 (0-50); Iron 134 ug/dL (49-181)
[2024-07-16 12:14] LABS: Alanine Aminotransferase 40 IU/L (<50); Albumin 4.6 g/dL (3.5-5.0); Albumin Globulin Ratio 1.8 (1.0-2.8); Alkaline Phosphatase 63 U/L (38-126); Aspartate Aminotransferase 36 IU/L (17-59); Bilirubin Total 0.9 mg/dL (0.2-1.3); Blood Urea Nitrogen 31 mg/dL (9-20); Calcium 9.1 mg/dL (8.4-10.2); Carbon Dioxide 27 mmol/L (22-32); Chloride 103 mmol/L (98-107); Cholesterol 135 mg/dL (140-199); Estimated Glomerular Filt Rate 55 mL/min (>60); Globulin 2.5 g/dL (1.7-4.1); Glucose 100 mg/dL (70-99); HDL Cholesterol 53 mg/dL (40-60); HEMOLYSIS < 15 (0-50); LDL Cholesterol Calculated 59 mg/dL (<100); Potassium 4.8 mmol/L (3.4-5.1); Sodium 137 mmol/L (137-145); Total Protein 7.1 g/dL (6.3-8.2); Triglycerides 113 mg/dL (35-150); Uric Acid 5.4 mg/dL (3.5-8.5)
[2024-07-16 12:24] LABS: Percent Iron Saturation 34 % (20-50); Total Iron Binding Capacity 399 ug/dL (261-462); Transferrin 349 mg/dL (206-381)
[2024-07-16 12:42] LABS: Prostate Specific Antigen 1.85 ng/mL (0.10-4.00)
[2024-07-16 12:52] LABS: Estradiol, Total 41.7 pg/mL
[2024-07-17 04:38] LABS: Apolipoprotein B 60 mg/dL (<90)
[2024-07-19 11:09] LABS: Lipoprotein (a) 25.3 nmol/L (<75.0)
== END ==
PROVIDERS: Family Provider Family Medicine; PCP Family Medicine; Referring Provider Family Medicine; Visit Provider Family Medicine
DX: R79.89 Other specified abnormal findings of blood chemistry (principal); E78.5 Hyperlipidemia, unspecified; M10.9 Gout, unspecified; R79.0 Abnormal level of blood mineral; N18.31 Chronic kidney disease, stage 3a; Z78.9 Other specified health status
CPT/HCPCS: 36415; 80053; 80061; 82172; 82670; 83540; 83550; 83695; 84153; 84402; 84403; 84550; 85025

== ENCOUNTER → 2024-07-21 16:01 | Outpatient (CLI) | payer MEDICARE, OTHER, SELFPAY ==
--- NOTE | 2024-07-21 16:03 | DI.MRI.S_ITS ---
PROCEDURE: MR KNEE RT WO CON INDICATIONS: eval meniscus/soft tissue - right TECHNIQUE: Noncontrast sagittal PD fast spin echo and T2 fast spin echo with fat saturation, sagittal 3-D FLASH with fat saturation; coronal T1 spin echo and PD fast spin echo with fat saturation, and axial PD fast spin echo with fat saturation through the knee. COMPARISON: [facility], MR, MR KNEE RT WO CON, 11/06/2022, 19:03. [facility], MR, MR KNEE RT WO CON, 11/17/2020, 16:50. FINDINGS: Image quality: Limited evaluation given artifact in the posterior knee, and patient motion Menisci: The medial meniscus is unremarkable. In the lateral meniscus there is horizontal oblique tear of the meniscus body. No extrusion of the lateral meniscus. Cruciate ligaments: The anterior and posterior cruciate ligaments appear intact. Medial structures: The medial collateral ligament appears intact. The posterior oblique ligament, semimembranosus tendon insertions, oblique popliteal ligament, and meniscocapsular junction appear intact. Visualized portions of the pes anserinus tendons appear normal. No abnormal bursal fluid. Lateral structures: The lateral collateral ligament, long and short heads of the biceps femoris tendon appear intact. The popliteus tendon appears normal; the popliteofibular ligament appears intact. The posterosuperior and anteroinferior popliteomeniscal fascicles appear intact. The arcuate and fabellofibular ligaments appear intact, on either side of the lateral inferior geniculate artery. Iliotibial band appears normal. Anterior structures: The quadriceps is intact. Moderate tendinosis of the patellar tendon. Mild lateral tilt of the patella.. No femoral trochlear dysplasia or ventral trochlear prominence. No edema in the infrapatellar fat pad. Bones and cartilage: Mild chondrosis of the patellofemoral compartment with small area of high-grade chondral loss in the medial patellar facet, with mild subchondral marrow edema. Mild chondral irregularity in the central trochlea. In the medial compartment, there is mild chondral irregularity in the weight- bearing portion of the medial femoral condyle. In the lateral compartment, there is mild chondral irregularity in the weight-bearing portion of the lateral femoral condyle and the lateral tibial plateau. No acute fracture. Joint space: Small knee effusion. No popliteal cyst. Popliteal vasculature is unremarkable. IMPRESSION: 1. Limited evaluation as described. 2. Tear of the lateral meniscus body. 3. Moderate tendinosis of the patellar tendon. 4. Mild tricompartmental chondrosis, grossly unchanged from 2022. Dictated by: Vickie Peter M.D. on 07/22/2024 at 15:53 Approved by: Vickie Peter M.D. on 07/22/2024 at 16:02
== END ==
PROVIDERS: PCP Family Medicine; Referring Provider Orthopaedic Surgery; Visit Provider Orthopaedic Surgery
DX: S83.281A Other tear of lateral meniscus, current injury, right knee, initial encounter (principal); M25.561 Pain in right knee; M22.41 Chondromalacia patellae, right knee
CPT/HCPCS: 73564; 73721; 99213

== ENCOUNTER → 2024-08-12 12:10 | Outpatient (CLI) | payer MEDICARE, OTHER, SELFPAY ==
[2024-08-12 13:44] LABS: Add Manual Diff / Slide Review NO; Hematocrit 49.6 % (41-53); Hemoglobin 16.5 g/dL (13.5-17.5); Lymphocytes Absolute Auto 1700 /uL (1100-4500); Mean Corpuscular HGB Conc 33.3 % (30-36); Mean Corpuscular Hemoglobin 29.0 PG (26-34); Mean Corpuscular Volume 87.2 fL (80-100); Platelet Count 164 X10^3/uL (150-400)
[2024-08-12 14:20] LABS: HEMOLYSIS < 15 (0-50); Iron 99 ug/dL (49-181)
[2024-08-12 14:23] LABS: Alanine Aminotransferase 59 IU/L (<50); Albumin 4.6 g/dL (3.5-5.0); Albumin Globulin Ratio 1.8 (1.0-2.8); Alkaline Phosphatase 55 U/L (38-126); Blood Urea Nitrogen 29 mg/dL (9-20); Calcium 9.2 mg/dL (8.4-10.2); Carbon Dioxide 29 mmol/L (22-32); Chloride 101 mmol/L (98-107); Cholesterol 131 mg/dL (140-199); Estimated Glomerular Filt Rate 56 mL/min (>60); Globulin 2.6 g/dL (1.7-4.1); Glucose 96 mg/dL (70-99); HDL Cholesterol 46 mg/dL (40-60); HEMOLYSIS < 15 (0-50); Potassium 4.7 mmol/L (3.4-5.1); Sodium 139 mmol/L (137-145); Total Protein 7.2 g/dL (6.3-8.2); Triglycerides 139 mg/dL (35-150); Uric Acid 5.7 mg/dL (3.5-8.5)
[2024-08-12 14:30] LABS: Percent Iron Saturation 24 % (20-50); Total Iron Binding Capacity 416 ug/dL (261-462); Transferrin 342 mg/dL (206-381)
[2024-08-12 14:51] LABS: Prostate Specific Antigen 2.04 ng/mL (0.10-4.00)
[2024-08-12 15:57] LABS: Estradiol, Total 30.0 pg/mL
[2024-08-23 10:40] LABS: Percent Free Testosterone 3.72 % (1.50-4.20)
== END ==
PROVIDERS: PCP Family Medicine; Referring Provider Family Medicine; Visit Provider Family Medicine
DX: N18.31 Chronic kidney disease, stage 3a (principal); R79.89 Other specified abnormal findings of blood chemistry; E78.5 Hyperlipidemia, unspecified; R79.0 Abnormal level of blood mineral; M10.9 Gout, unspecified
CPT/HCPCS: 36415; 80053; 80061; 82172; 82670; 83540; 83550; 84153; 84402; 84403; 84550; 85025

== ENCOUNTER → 2024-08-12 13:30 | Outpatient (CLI) | payer MEDICARE, OTHER, SELFPAY ==
--- NOTE | 2024-08-12 13:31 | DI.MRI.S_ITS ---
PROCEDURE: MR ANKLE RT WO/W CON INDICATIONS: right ankle injury TECHNIQUE: Noncontrast sagittal T1 spin echo and T2 fast spin echo with fat saturation, axial proton density fast spin echo and T2 fast spin echo with fat saturation, axial T1 spin echo with fat saturation, coronal T1 spin echo and T2 fast spin echo with fat saturation through the ankle/hindfoot. Post-contrast axial, coronal, and sagittal T1 spin echo with fat saturation through the ankle/hindfoot. COMPARISON: [facility], CR, ORTHO-XR ANKLE 3V WB RIGHT, 08/12/2024, 12:27. FINDINGS: Image quality: Excellent. Bones and joints: There is mild diffuse ankle soft tissue swelling and edema extending from distal lower leg to the level of hindfoot and midfoot slightly worse along medial aspect. 1.1 x 0.6 x 0.9 cm oval T1 and T2 hypointense nodule in subcutaneous soft tissue over medial malleolus is seen series 7, image 28 and series 6 image 24. No contrast enhancement is noted. No other soft tissue mass or drainable fluid collection. Mild midfoot and hindfoot joint osteoarthritic changes are seen. No acute fracture or dislocation. Osteochondral injury involving medial weight-bearing portion of talar dome measures 6 x 8 x 8 mm in size. 3 mm osteochondral injury involving distal tibial plafond is also seen. Small tibiotalar joint effusion, no loose bodies. Medial structures: The posterior tibialis, flexor digitorum longus, and flexor hallucis longus tendons are intact. The posterior tibial neurovascular bundle appears normal within the tarsal tunnel, without extrinsic mass effect. The deltoid ligament and spring ligament are intact. Lateral structures: The anterior talofibular ligament is mildly thickened. The calcaneofibular, and posterior talofibular ligaments appear intact. More superiorly, the anterior and posterior tibiofibular ligaments appear intact, as is the intermalleolar ligament. The tibiofibular syndesmosis is normal in width at 2 mm or less. The peroneus longus and brevis tendons are intact. The sinus tarsi demonstrates normal fatty signal, without edema, fibrosis, or cyst formation. Anterior structures: The tibialis anterior, extensor hallucis longus, and extensor digitorum longus tendons appear intact. The dorsal talonavicular ligament appears intact. Posterior and plantar structures: Achilles tendon is mildly thickened near its posterior calcaneal insertion. Medial and lateral bands of the plantar fascia are of normal thickness. No abductor digiti quinti muscle atrophy to suggest Mayo neuropathy. IMPRESSION: 1. 1.1 x 0.6 x 0.9 cm oval T1 and T2 hypointense nodule in subcutaneous soft tissue over medial malleolus slightly medial and posterior to the posterior tibialis tendon at this level and show no definite contrast enhancement. Finding is suggestive of soft tissue nodule of indeterminate nature. Consider excision or biopsy for more definitive diagnosis. 2. Mild soft tissue edema and swelling around distal lower leg extending to midfoot and hindfoot. No discrete drainable fluid collection. No other soft tissue mass is seen. 3. Mild midfoot and hindfoot joint osteoarthritis. No acute fracture or dislocation. Osteochondral injury involving medial weight-bearing portion of talar dome measures 6 x 8 x 8 mm in size. 3 mm osteochondral injury involving distal tibial plafond. Small joint effusion, no loose bodies. 4. Very mild ATFL sprain. No ankle ligament rupture. 5. Distal Achilles tendinosis. Rest of the ankle tendons are intact. Dictated by: Thang Hull M.D. on 08/12/2024 at 17:24 Approved by: Thang Hull M.D. on 08/12/2024 at 17:33
== END ==
PROVIDERS: PCP Family Medicine; Referring Provider Physician Assistant Surgical; Visit Provider Physician Assistant Surgical
DX: S93.491A Sprain of other ligament of right ankle, initial encounter (principal); L02.415 Cutaneous abscess of right lower limb; M25.571 Pain in right ankle and joints of right foot; M79.89 Other specified soft tissue disorders; M19.071 Primary osteoarthritis, right ankle and foot; N18.31 Chronic kidney disease, stage 3a; R79.89 Other specified abnormal findings of blood chemistry; E78.5 Hyperlipidemia, unspecified; R79.0 Abnormal level of blood mineral; M10.9 Gout, unspecified; Z68.27 Body mass index [BMI] 27.0-27.9, adult
CPT/HCPCS: 36415; 73610; 73723; 80053; 80061; 82172; 82670; 83540; 83550; 84153; 84402; 84403; 84550; 85025; 99213; A9579

== ENCOUNTER → 2024-08-20 15:23 | Outpatient (CLI) | payer MEDICARE, OTHER, SELFPAY ==
[2024-08-20 16:52] LABS: Ferritin 14 ng/mL (18-464)
== END ==
LOC: LAB 15:24
PROVIDERS: PCP Family Medicine; Referring Provider Family Medicine; Visit Provider Family Medicine
DX: D50.0 Iron deficiency anemia secondary to blood loss (chronic) (principal)
CPT/HCPCS: 36415; 82728

== ENCOUNTER 2024-09-16 14:05 | Day surgery (SDC) | payer MEDICARE, OTHER, SELFPAY ==
--- NOTE | 2024-09-16 | PATH_ITS ---
[facility] Accession Number: [id number] No. of containers..04 Tissue . 01 Material submitted: . PART A: duodenum - DUODENUM PART B: duodenum bulb - DUODENAL BULB PART C: stomach - ANTRUM PART D: esophagus, E-G Junction - GE JUNCTION . 01 Diagnosis: Part A: DUODENUM: Duodenal mucosa with no diagnostic alterations. No active inflammation and no evidence of celiac disease. . Part B: DUODENAL BULB: Duodenal mucosa with no diagnostic alterations. No active inflammation and no evidence of celiac disease. . Part C: ANTRUM: Gastric mucosa with no diagnostic alterations. No Helicobacter organisms identified on H/E stain. No intestinal metaplasia, dysplasia, or malignancy identified. . Part D: GE JUNCTION: Gastroesophageal junction mucosa with mild chronic inflammation. No goblet cell metaplasia, dysplasia, or malignancy identified. [facility] 09/22/2024 1449 Local . 01 Electronically signed: . Guanakito Hargrove MD, Pathologist NPI- [id number] . 01 Gross description: . Part A: DUODENUM: Received in formalin are 2 fragment(s) of mendieta, soft tissue measuring 0.2 x 0.2 x 0.2 cm to 0.3 x 0.3 x 0.2 cm submitted entirely in 1 cassette(s) . Part B: DUODENAL BULB: Received in formalin is 1 fragment(s) of mendieta, soft tissue measuring 0.2 x 0.2 x 0.1 cm submitted entirely in 1 cassette(s) . Part C: ANTRUM: Received in formalin are 3 fragment(s) of mendieta, soft tissue measuring 0.1 x 0.1 x 0.1 cm to 0.4 x 0.2 x 0.2 cm submitted entirely in 1 cassette(s) . Part D: GE JUNCTION: Received in formalin are 3 fragment(s) of mendieta, soft tissue measuring 0.1 x 0.1 x 0.1 cm to 0.4 x 0.2 x 0.2 cm submitted entirely in 1 cassette(s) /BEKA 09/22/2024 1449 Local . 01 Pathologist provided ICD-10: K20.90 . 01 CPT . 847098, 631996, 642838, [id number] Specimen Comment: A courtesy copy of this report has been sent to [phone] Performed at: [address] [id number] MD Guanakito Hargrove MD Phone: [phone]
[2024-09-16] MEDS: LACTATED RINGERS 1,000 ML 42 ML IV (14:26)
[2024-09-16 14:37] VITALS: BP 148/82; PULSE 73; RESP 18; TEMP 36.2; O2SAT 99
--- NOTE | 2024-09-16 14:42 | P.HP_ITS ---
History of Present Illness History of Present Illness Date Patient Seen: 09/16/24 Time Patient Seen: 14:42 Chief complaint: SDC Narrative: Fred is a 74-year-old man who is here for an EGD for dyspepsia. See the office note for details. [facility] Medical History (Updated 08/12/24 @ 12:52 by Eloise Sam PA-C) Statin intolerance BCC (basal cell carcinoma) Kidney stones Enlarged prostate Bowel obstruction Pneumonia External hemorrhoid Hemorrhoids that prolapse with straining and require manual replacement back inside anal canal Low T4 Gout Vascular insufficiency of extremity Hyperlipidemia Surgical History Post-operative state Hx of toe surgery (08/27/19) History of surgery (03/24/18) Hx of foot surgery (02/27/18) History of vascular surgery History of toe surgery (03/12/17) Social History household members: friend(s) alcohol intake: current Meds Home Medications and Allergies Home Medications ?Medication ?Instructions ?Recorded ?Confirmed ?Type colchicine 0.6 mg capsule See Rx Instructions PO .COMP KAILEY 04/15/23 08/20/24 Rx #60 caps tadalafil 10 mg tablet 10 mg PO DAILY PRN sexual ac tivity 11/10/23 08/20/24 Rx #30 tabs anastrozole 1 mg tablet 0.5 mg (1/2 x 1 mg) PO DAILY #45 02/17/24 08/20/24 Rx tabs Allergies Allergy/AdvReac Type Severity Reaction Status Date / Time oxycodone Allergy Verified 08/20/24 14:07 prednisolone (PREDNISOLONE) AdvReac Unknown Glaucoma Verified 08/20/24 14:07 Exam Vital Signs (past 8 hours): - 09/16/24 14:37 Temperature 97.2 F L Pulse Rate 73 Respiratory Rate 18 Blood Pressure 148/82 H Pulse Oximetry 99 Oxygen Delivery Method Room Air Oxygen Delivery Method Room Air Const General: No acute distress Resp Effort & Inspection: normal respiratory effort Assessment & Plan Assessment and plan (1) Dyspepsia: Status: Acute Plan Esophagogastroduodenoscopy Time-Based Coding :: [TOTAL MINUTES] spent with patient and on the chart (including review of chart, obtaining history, exam, reviewing outside data, placing orders, documenting exam and treatment plan, and counseling patient) on [DATE]. 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
--- NOTE | 2024-09-16 15:00 | PM.OP.EGD ---
Operative Date/Time/Diagnoses Date of procedure: 09/16/24 Time of procedure: 15:00 Pre-op diagnosis: Dyspepsia Post-op diagnosis: same Procedure & Clinicians Study performed: Esophagogastroduodenoscopy Same procedure(s) as scheduled: Yes Surgeon: Ab Vallejo Anesthesia Type: MAC +/- Procedure Notes Procedure in detail: Surgeon: Ab Vallejo MD Anesthesia: Charan Blayne D.O. A timeout was performed. A bite blocked was placed. The patient was positioned in the left lateral decubitus position. Anesthesia was administered. The endoscope was inserted through the bite block and passed through the esophagus and stomach and into the duodenum. The duodenal mucosa appeared normal however random biopsies were taken with cold forceps to rule out microscopic conditions. The scope was withdrawn into the duodenal bulb and mild duodenitis was noted. Random biopsies were taken from the duodenal mucosa with cold forceps. The scope was withdrawn into the stomach. Mild antritis was noted and random biopsies were taken from the antral mucosa with cold forceps. The rest of the stomach was normal. The scope was retroflexed and a small hiatal hernia was noted. The scope was withdrawn into the esophagus and biopsies were taken from the GE junction with the cold forceps. The remainder of the esophagus was normal. The scope was withdrawn. The patient was awakened and brought to recovery. Sedation time: 6 minutes Findings: Mild duodenitis and antritis, small hiatal hernia Post-procedure Disposition: PACU
[2024-09-16 15:02] VITALS: BP 116/58; PULSE 65; RESP 16; TEMP 36.4; O2SAT 95
[2024-09-16 15:15] VITALS: BP 121/69; PULSE 64; RESP 15; TEMP 36.4; O2SAT 99
== END 2024-09-16 15:26 | disposition home or self-care (01) ==
PROVIDERS: PCP Family Medicine; Referring Provider Surgery; Visit Provider Surgery
PROC: 0DJ08ZZ Inspection of Upper Intestinal Tract, Via Natural or Artificial Opening Endoscopic (ICD-10-PCS; CPT 43239; principal; 2024-09-16 15:15)
DX: R10.13 Epigastric pain (principal); K29.80 Duodenitis without bleeding; K44.9 Diaphragmatic hernia without obstruction or gangrene; K29.50 Unspecified chronic gastritis without bleeding
CPT/HCPCS: 43239; J2704

== ENCOUNTER → 2024-10-18 10:28 | Outpatient (CLI) | payer MEDICARE, OTHER, SELFPAY ==
[2024-10-18 11:06] LABS: Add Manual Diff / Slide Review NO; Hematocrit 52.6 % (41-53); Hemoglobin 17.1 g/dL (13.5-17.5); Lymphocytes Absolute Auto 1600 /uL (1100-4500); Mean Corpuscular HGB Conc 32.6 % (30-36); Mean Corpuscular Hemoglobin 28.3 PG (26-34); Mean Corpuscular Volume 86.9 fL (80-100); Platelet Count 178 X10^3/uL (150-400)
[2024-10-18 11:32] LABS: HEMOLYSIS < 15 (0-50); Iron 58 ug/dL (49-181)
[2024-10-18 11:35] LABS: Alanine Aminotransferase 28 IU/L (<50); Albumin 4.6 g/dL (3.5-5.0); Albumin Globulin Ratio 1.8 (1.0-2.8); Alkaline Phosphatase 62 U/L (38-126); Blood Urea Nitrogen 24 mg/dL (9-20); Calcium 9.1 mg/dL (8.4-10.2); Carbon Dioxide 26 mmol/L (22-32); Chloride 103 mmol/L (98-107); Cholesterol 126 mg/dL (140-199); Estimated Glomerular Filt Rate 59 mL/min (>60); Globulin 2.6 g/dL (1.7-4.1); Glucose 95 mg/dL (70-99); HDL Cholesterol 54 mg/dL (40-60); HEMOLYSIS < 15 (0-50); Potassium 4.4 mmol/L (3.4-5.1); Sodium 139 mmol/L (137-145); Total Protein 7.2 g/dL (6.3-8.2); Triglycerides 96 mg/dL (35-150); Uric Acid 5.1 mg/dL (3.5-8.5)
[2024-10-18 11:42] LABS: Percent Iron Saturation 14 % (20-50); Total Iron Binding Capacity 420 ug/dL (261-462); Transferrin 359 mg/dL (206-381)
[2024-10-18 11:53] LABS: Anisocytosis 1+
[2024-10-18 12:05] LABS: Prostate Specific Antigen 1.91 ng/mL (0.10-4.00)
[2024-10-18 12:14] LABS: Estradiol, Total 42.6 pg/mL
[2024-10-25 12:36] LABS: Percent Free Testosterone 4.38 % (1.50-4.20)
== END ==
PROVIDERS: PCP Family Medicine; Referring Provider Family Medicine; Visit Provider Family Medicine
DX: R79.89 Other specified abnormal findings of blood chemistry (principal); E78.5 Hyperlipidemia, unspecified; R79.0 Abnormal level of blood mineral; N18.31 Chronic kidney disease, stage 3a; M10.9 Gout, unspecified
CPT/HCPCS: 36415; 80053; 80061; 82172; 82670; 83540; 83550; 84153; 84402; 84403; 84550; 85025

== ENCOUNTER → 2024-12-20 11:20 | Outpatient (CLI) | payer MEDICARE, OTHER, SELFPAY ==
[2024-12-20 11:47] LABS: Add Manual Diff / Slide Review NO; Hematocrit 47.4 % (41-53); Hemoglobin 15.5 g/dL (13.5-17.5); Lymphocytes Absolute Auto 1300 /uL (1100-4500); Mean Corpuscular HGB Conc 32.8 % (30-36); Mean Corpuscular Hemoglobin 27.4 PG (26-34); Mean Corpuscular Volume 83.4 fL (80-100); Platelet Count 220 X10^3/uL (150-400)
[2024-12-20 12:12] LABS: HEMOLYSIS < 15 (0-50); Iron 69 ug/dL (49-181)
[2024-12-20 12:17] LABS: Alanine Aminotransferase 36 IU/L (<50); Albumin 4.5 g/dL (3.5-5.0); Albumin Globulin Ratio 1.7 (1.0-2.8); Alkaline Phosphatase 59 U/L (38-126); Blood Urea Nitrogen 19 mg/dL (9-20); Calcium 9.0 mg/dL (8.4-10.2); Carbon Dioxide 30 mmol/L (22-32); Chloride 100 mmol/L (98-107); Cholesterol 117 mg/dL (140-199); Estimated Glomerular Filt Rate 54 mL/min (>60); Globulin 2.7 g/dL (1.7-4.1); Glucose 97 mg/dL (70-99); HDL Cholesterol 46 mg/dL (40-60); HEMOLYSIS < 15 (0-50); Potassium 4.6 mmol/L (3.4-5.1); Sodium 139 mmol/L (137-145); Total Protein 7.2 g/dL (6.3-8.2); Triglycerides 135 mg/dL (35-150); Uric Acid 4.9 mg/dL (3.5-8.5)
[2024-12-20 12:23] LABS: Percent Iron Saturation 15 % (20-50); Total Iron Binding Capacity 460 ug/dL (261-462); Transferrin 385 mg/dL (206-381)
[2024-12-20 12:44] LABS: Prostate Specific Antigen 2.13 ng/mL (0.10-4.00)
[2024-12-20 12:45] LABS: Estradiol, Total 25.5 pg/mL
[2024-12-20 12:48] LABS: Ferritin 10 ng/mL (18-464)
== END ==
PROVIDERS: PCP Family Medicine; Referring Provider Family Medicine; Visit Provider Family Medicine
DX: R79.89 Other specified abnormal findings of blood chemistry (principal); E78.5 Hyperlipidemia, unspecified; R79.0 Abnormal level of blood mineral; M10.9 Gout, unspecified; N18.31 Chronic kidney disease, stage 3a; D50.0 Iron deficiency anemia secondary to blood loss (chronic); R74.01 Elevation of levels of liver transaminase levels
CPT/HCPCS: 36415; 80053; 80061; 82172; 82670; 82728; 83540; 83550; 84153; 84402; 84403; 84550; 85025